=== PATIENT | female | born 1945 | race Caucasian/White ===

== ENCOUNTER 2016-11-12 10:04 | Inpatient (IN) ==
[2016-11-12] MEDS ORDERED: Acetaminophen 325 MG TABLET PO ONE (10:57)
[2016-11-12] MEDS ORDERED: 0.9 % Sodium Chloride 1,000 ML IVC ONE ×2 (11:00→13:41)
--- NOTE | 2016-11-12 11:04 | Emergency Department Note ---
Disposition Clinical Impression: Neutropenic fever Sepsis Qualifiers: Sepsis type: sepsis due to unspecified organism Qualified Code(s): A41.9 - Sepsis, unspecified organism UTI (urinary tract infection) Qualifiers: Urinary tract infection type: site unspecified Hematuria presence: without hematuria Qualified Code(s): N39.0 - Urinary tract infection, site not specified Disposition: Admitted As Inpatient Condition: Fair Time of Disposition: 13:49 Weakness HPI - General Chief complaint: ED Weakness Stated complaint: fever/weakness Time Seen by Provider: 11/12/16 10:33 Source: patient, family Limitations: no limitations Nursing Notes Reviewed: Yes Vital Signs Reviewed: Yes - History of Present Illness HPI Narrative: Patient is a 71-year-old female who presents to [facility] ED with a chief complaint of generalized weakness and fever. Past medical history significant for CLL and right breast cancer. Patient currently undergoing chemotherapy and supposed to be starting IVIG today. She was sent over by the cancer center with concern for her fever. Patient was diagnosed with an possible bronchitis last week and given a prescription for azithromycin. She was then diagnosed with urinary tract infection 3 days ago and was started on ciprofloxacin. Patient denies any nausea, vomiting, chest pain, difficulty breathing. She has had a persistent cough. Denies any abdominal pain or feelings of dysuria. She has had some black tarry stools though she has been taking some Pepto-Bismol. Patient has been having some diarrhea since one week ago. Pt Subjective Complaint: generalized weakness/fatigue Onset (ago): day(s) Duration: constant, gradually worsening Location: generalized Migration: none Pain Severity: none Pain Scale: 0 Improves with: none Worsens with: none Context: recent illness Associated symptoms: Reports: fever/chills. Denies: chest pain, dysuria, headaches, nausea/vomiting, shortness of breath - Related Data Home Medications Medication Instructions Recorded Confirmed ClonazePAM [Klonopin] 1 mg PO DAILY 06/13/15 11/12/16 Ibuprofen [Motrin] 200 mg PO Q4HR PRN 06/13/15 11/12/16 Lisinopril/Hydrochlorothiazide 1 tab PO DAILY 06/13/15 11/12/16 [Zestoretic 10-12.5 mg Tablet] Oxymetolazine HCl [Afrin] 2 spray NS HS 06/13/15 11/12/16 Pravastatin Sodium [Pravachol] 80 mg PO DAILY 06/13/15 11/12/16 Levothyroxine [Synthroid] 100 mcg PO 0630 02/06/16 11/12/16 Denosumab [Prolia (For Outpatient 60 mg SQ [id number] 03/04/16 11/12/16 Infusion)] Magnesium Oxide [Magnesium] 400 mg PO DAILY PRN 05/19/16 11/12/16 Previous Rx's Medication Instructions Recorded Gabapentin [Neurontin] 100 mg PO BID #60 capsule 05/19/16 LORazepam [Ativan] 1 mg PO Q6H PRN #90 tablet 09/02/16 Lidocaine/Prilocaine CREAM [Emla] 5 gm TP PRN PRN #1 tube 09/02/16 Magic Mouthwash [Magic Mouthwash 10 ml PO QID PRN #240 ml 09/02/16 BLM] Ondansetron [Zofran] 8 mg PO Q8HR PRN #90 tablet 09/02/16 Prochlorperazine Maleate 10 mg PO Q6HR PRN #90 tablet 09/02/16 [Compazine] Omeprazole [PriLOSEC] 20 mg PO DAILY #90 cap 09/03/16 Oxycodone HCl/Acetaminophen 1 each PO Q6H PRN #30 tablet 09/10/16 [Percocet 5-325 mg Tablet] Amitriptyline [Elavil] 50 mg PO HS #30 tablet 09/14/16 Calamine/Zinc Oxide [Calamine 240 ml TP PRN PRN #1 lotion 10/23/16 Lotion] MethylPREDNISolone 4 mg PO AD #21 tab 10/23/16 [MethylPREDNISolone Dose Pack] Ciprofloxacin HCl [Cipro] 250 mg PO BID #14 tablet 11/10/16 Allergies Allergy/AdvReac Type Severity Reaction Status Date / Time No Known Allergies Allergy Verified 11/12/16 13:35 All systems ED: reviewed and negative except as stated. Past Medical History - Past Medical History Attestation: Yes The following information was validated with the patient. Source: patient Medical history: Reports: cancer, hyperlipidemia, hypertension, RA, thyroid disease Surgical history: Reports: cancer surgery Psychiatric history: Reports: no psych history - Social History Smoking Status: Never smoker Smokeless Tobacco Status: No Alcohol use: Reports: rarely Drug use: Reports: none Physical Exam - General Limitations: no limitations General appearance: alert, in no apparent distress - Head Head exam: atraumatic, normocephalic, normal inspection - Eye Eye exam: Present: normal appearance, PERRL, EOMI - ENT ENT exam: normal exam, normal oropharynx, mucous membranes moist - Neck Neck exam: Present: normal inspection, full ROM, trachea midline - Chest Chest inspection: Present: normal inspection, symmetric chest wall rise - Respiratory Respiratory exam: Present: normal lung sounds bilaterally - Cardiovascular Cardiovascular exam: Present: normal rhythm, tachycardia, normal heart sounds - Abdominal Exam Abdominal exam: Present: soft, Non-Tender. Absent: tenderness, distention, guarding, rebound, rigidity - Extremities Exam Extremities exam: Present: normal inspection, full ROM. Absent: tenderness, pedal edema - Back Exam Back exam: Present: normal inspection, full ROM. Absent: tenderness - Neurological Exam Neurological exam: Present: alert, oriented X3 - Psychiatric Psychiatric exam: Present: normal affect, normal mood - Skin Skin exam: Present: warm, dry, intact, normal color Course Course Narrative: Patient seen and examined. Generalized weakness and fever. We will do cardiopulmonary workup. We will get a urine analysis. Get some blood cultures. Her urine culture from 2 days ago did grow out Klebsiella pneumoniae. It does appear to be sensitive to the antibiotic she was placed on , ciprofloxacin. We will check for any other source of infection. We will fluid hydrate. - Reevaluation(s) Reevaluation #1: Lab work shows hypokalemia of 2.7. 40 mEq of potassium chloride ordered. We will also give her some magnesium sulfate. Also showing hyponatremia with a sodium of 122. Urinalysis still pending. With her fever, immunosuppression, we will go ahead and treat her with broad-spectrum antibiotics. She could have persisting urinary tract infection/failed outpatient therapy, or possible infection of her port. We will admit for sepsis, hyponatremia, hypokalemia, UTI. I spoke with hospitalist Dr. Blair who has accepted patient for admission. Time: 13:43 Vital Signs Temperature 103 F H 11/12/16 10:09 Pulse Rate 120 11/12/16 10:09 Respiratory Rate 18 11/12/16 10:09 Blood Pressure 142/79 11/12/16 10:09 O2 Sat by Pulse Oximetry 100 11/12/16 10:09 Temperature 99.3 F 11/12/16 13:01 Pulse Rate 97 11/12/16 12:36 Respiratory Rate 18 11/12/16 12:36 Blood Pressure 119/67 11/12/16 12:36 O2 Sat by Pulse Oximetry 100 11/12/16 12:36 Oxygen Delivery Oxygen Delivery Room Air Weakness - Medical Records Medical records reviewed: Yes I reviewed the patient's medical records. - Lab Data Lab results reviewed: Yes I reviewed the patient's lab results. Result diagrams: 11/12/16 11:13 11/12/16 11:13 Lab Results 11/12/16 11/12/16 11/12/16 Range/Units 11:13 11:13 11:13 WBC 3.3 L (4.3-11.1) K/mcL RBC 3.76 L (3.82-4.97) M/mcL Hgb 10.8 L (11.5-15.4) g/dL Hct 31.2 L (35.3-44.9) % MCV 83.0 (83.0-100.0) fL MCH 28.7 (28.0-33.3) pg MCHC 34.6 (31.6-35.5) g/dL RDW 14.0 (11.5-14.5) % Plt Count 78 L (140-400) K/mcL MPV 11.1 (9.4-12.4) fL Immature Gran % 0.6 (0-4) % Seg Neutrophils % 87.4 % Lymphocytes % 3.0 % Monocytes % 9.0 % Eosinophils % 0.0 % Basophils % 0.0 % Neutrophils # 2.9 (1.6-8.9) K/mcL Lymphocytes # 0.1 L (0.6-4.6) K/mcL Monocytes # 0.3 (0.0-1.3) K/mcL Eosinophils # 0.0 (0.0-0.6) K/mcL Basophils # 0.0 (0.0-0.2) K/mcL Reactive Lymphocytes Present A (Not Present) Platelet Estimate Decreased L (Normal) Immature Plt Fraction 9.2 H (1.1-6.1) % Sodium 122 L (136-145) mEq/L Potassium 2.7 L (3.5-4.5) mEq/L Chloride 87 L (98-109) mEq/L Carbon Dioxide 27 (19-29) mEq/L BUN 8 (7-20) mg/dL Creatinine 0.67 (0.57-1.11) mg/dL Est GFR ( Amer) > 60 (> 60) Est GFR (Non-Af Amer) > 60 (> 60) BUN/Creatinine Ratio 12 (6-26) Glucose 112 H (70-99) mg/dL Calculated Osmolality 253 L (280-300) Lactic Acid (0.5-2.2) mmol/L Calcium 7.7 L (8.6-10.8) mg/dL Total Bilirubin 0.7 (0.2-1.2) mg/dL AST 27 (5-34) Units/L ALT 17 (0-55) Units/L Alkaline Phosphatase 52 (38-126) Units/L Troponin I 0.01 (0-0.03) ng/mL Serum Total Protein 5.4 L (6.0-8.3) g/dL Albumin 2.6 L (3.5-5.0) g/dL Globulin 2.8 (2.4-3.5) g/dL Albumin/Globulin Ratio 0.9 L (1.1-2.2) TSH 0.445 (0.350-4.840) mcIU/mL // Range/Units 11:13 WBC (4.3-11.1) K/mcL RBC (3.82-4.97) M/mcL Hgb (11.5-15.4) g/dL Hct (35.3-44.9) % MCV (83.0-100.0) fL MCH (28.0-33.3) pg MCHC (31.6-35.5) g/dL RDW (11.5-14.5) % Plt Count (140-400) K/mcL MPV (9.4-12.4) fL Immature Gran % (0-4) % Seg Neutrophils % % Lymphocytes % % Monocytes % % Eosinophils % % Basophils % % Neutrophils # (1.6-8.9) K/mcL Lymphocytes # (0.6-4.6) K/mcL Monocytes # (0.0-1.3) K/mcL Eosinophils # (0.0-0.6) K/mcL Basophils # (0.0-0.2) K/mcL Reactive Lymphocytes (Not Present) Platelet Estimate (Normal) Immature Plt Fraction (1.1-6.1) % Sodium (136-145) mEq/L Potassium (3.5-4.5) mEq/L Chloride (98-109) mEq/L Carbon Dioxide (19-29) mEq/L BUN (7-20) mg/dL Creatinine (0.57-1.11) mg/dL Est GFR ( Amer) (> 60) Est GFR (Non-Af Amer) (> 60) BUN/Creatinine Ratio (6-26) Glucose (70-99) mg/dL Calculated Osmolality (280-300) Lactic Acid 1.5 (0.5-2.2) mmol/L Calcium (8.6-10.8) mg/dL Total Bilirubin (0.2-1.2) mg/dL AST (5-34) Units/L ALT (0-55) Units/L Alkaline Phosphatase (38-126) Units/L Troponin I (0-0.03) ng/mL Serum Total Protein (6.0-8.3) g/dL Albumin (3.5-5.0) g/dL Globulin (2.4-3.5) g/dL Albumin/Globulin Ratio (1.1-2.2) TSH (0.350-4.840) mcIU/mL - Radiology Data Radiology results reviewed: Yes I reviewed the patient's radiology results. Chest X-Ray 11/12/16 10:57 IMPRESSION: 1. Right chest wall MediPort in stable position. 2. Left base atelectasis with trace effusion versus pleural thickening. D/ / 11/12/2016 11:13:57 Vicki Nicole MD / Kacey Carpenter Interpreting Provider: Vicki Nicole MD - EKG Data EKG attestation: Yes I reviewed and interpreted this EKG. EKG results narrative: EKG done at 1014 shows sinus tachycardia with a rate of [address] elevation or depression. Left axis deviation. Attestation Statement - Attestation Attestation: I examined this patient and my medical decision-making was reviewed with the Resident Physician. I agree with the documented findings, disposition and treatment plan as described.
[2016-11-12 11:23] LABS: Hematocrit 31.2 % (35.3-44.9); Hemoglobin 10.8 g/dL (11.5-15.4); Immature Granulocytes % 0.6 % (0-4); Immature Platelets 9.2 % (1.1-6.1); Lymphocytes # 0.1 K/mcL (0.6-4.6); Mean Corpuscular HGB Conc 34.6 g/dL (31.6-35.5); Mean Corpuscular Hemoglobin 28.7 pg (28.0-33.3); Mean Platelet Volume 11.1 fL (9.4-12.4); Monocytes # 0.3 K/mcL (0.0-1.3); Neutrophils # 2.9 K/mcL (1.6-8.9); Red Blood Count 3.76 M/mcL (3.82-4.97); Segmented Neutrophils % 87.4 %
[2016-11-12 11:25] LABS: Platelet Count 78 K/mcL (140-400)
[2016-11-12 11:38] LABS: Alanine Aminotransferase 17 Units/L (0-55); Albumin 2.6 g/dL (3.5-5.0); Albumin/Globulin Ratio 0.9 (1.1-2.2); Alkaline Phosphatase 52 Units/L (38-126); Aspartate Amino Transferase 27 Units/L (5-34); BUN/Creatinine Ratio 12 (6-26); Bilirubin,Total 0.7 mg/dL (0.2-1.2); Blood Urea Nitrogen 8 mg/dL (7-20); Calcium 7.7 mg/dL (8.6-10.8); Carbon Dioxide 27 mEq/L (19-29); Chloride 87 mEq/L (98-109); Globulin 2.8 g/dL (2.4-3.5); Glucose 112 mg/dL (70-99); Osmolality,Calculated 253 (280-300); Potassium 2.7 mEq/L (3.5-4.5); Sodium 122 mEq/L (136-145); Total Protein 5.4 g/dL (6.0-8.3); eGFR For African Americans > 60 (> 60); eGFR For Non-African Americans > 60 (> 60)
[2016-11-12 11:47] LABS: Platelet Estimate Decreased (Normal); Reactive Lymphocytes Present (Not Present)
[2016-11-12 12:00] LABS: Thyroid Stimulating Hormone 0.445 mcIU/mL (0.350-4.840)
[2016-11-12] MEDS ORDERED: Piperacillin/Tazobactam 3.375 GM in D5% in Water (Mini-Bag+) 100 ML IVPB ONE (12:50)
[2016-11-12] MEDS ORDERED: Vancomycin 1,250 MG in D5% in Water 250 ML IVPB SCH ×2 (13:00→15:00)
[2016-11-12] MEDS ORDERED: Magnesium Sulfate 1 GM in D5% in Water 100 ML IVPB ONE (13:40)
[2016-11-12 13:58] LABS: Bilirubin,Urine Negative (Negative); Blood,Urine Negative (Negative); Clarity,Urine Cloudy (Clear); Color,Urine Yellow (Yellow); Glucose,Urine (UA) Normal (Normal); Ketones,Urine Negative (Negative); Leukocyte Esterase,Urine Trace (Negative); Nitrite,Urine Negative (Negative); Protein,Urine Trace mg/dL (Neg-Trace); Specific Gravity,Urine 1.011 (1.010-1.025); Urobilinogen,Urine Normal (Normal)
[2016-11-12 14:00] LABS: Bacteria,Urine None Seen per hpf (None-Few); Hyaline Casts,Urine None Seen per lpf (None-Few); RBC,Urine 0-3 per hpf (0-3); Squamous Epithelial Cell,Urine Many per lpf (None-Few); WBC,Urine 0-3 per hpf (0-3)
--- NOTE | 2016-11-12 14:12 | Internal Med History&Physical ---
Date of Encounter: 11/12/16 Time of Encounter: 13:20 Assessment and Plan (1) Sepsis Current visit: Yes Status: Acute Patient presented with sepsis from uncertain etiology. Patient is immunosuppressed due to chemotherapy and CLL. Will admit inpatient. Treat with broad-spectrum antibiotics. Follow blood culture results. High risk for complications. Cruz in hospital for 2 nights Qualifiers: Sepsis type: sepsis due to unspecified organism Qualified Code(s): A41.9 - Sepsis, unspecified organism (2) CLL (chronic lymphocytic leukemia) Current visit: No Status: Chronic Follow-up outpatient with oncology. Patient has pancytopenia related to this. (3) UTI (urinary tract infection) Current visit: Yes Status: Acute Patient with acute cystitis due to pansensitive Klebsiella pneumoniae per recent urine culture. Will treat with antibiotics. 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 Hemoglobin is 10.8. Will monitor closely. Will hold off on medical anticoagulation due to low platelet counts for now. Internal Medicine - H&P: HPI Chief complaint: Fever and generalized weakness Admitted From: Emergency Dept Plans for Post Hospital Care: Home History of present illness: Ms. Fish is a 71 year old female with a history of CLL for which she is undergoing chemotherapy and previous breast cancer was sent to the ER by her oncologist but concerns due to high-grade fever. Patient has also been treated with a week and tired since the past couple of days. She was diagnosed with an acute urinary tract infection about 3 days back and was prescribed antibiotics for that. Prior to that she had just completed a course of treatment with antibiotics for possible bronchitis. Her last chemotherapy regimen was in mid September. She was due for another session earlier this month but that had been postponed due to fever. She denies any cough shortness of breath or chest pain. Denies any nausea she had an episode of diarrhea a few days back but currently does not have any. She has been having poor appetite. She was set to receive IVIG in the clinic today was supposed to be starting chemotherapy tomorrow. She denies any dysuria, cough, abdominal pain. Past Med Surg Social Fam HX - Past Medical History Medical history: cancer, hyperlipidemia, hypertension, RA, thyroid disease Psychiatric history: no psych history - Past Surgical History Surgical History: cancer surgery - Social History Smoking Status: Never smoker Smokeless Tobacco Status: No Alcohol use: rarely Drug use: none Internal Medicine - H&P: Meds ClonazePAM [Klonopin] 1 mg PO DAILY 06/13/15 [History] Ibuprofen [Motrin] 200 mg PO Q4HR PRN 06/13/15 [History] Lisinopril/Hydrochlorothiazide [Zestoretic 10-12.5 mg Tablet] 1 tab PO DAILY [History] Oxymetolazine HCl [Afrin] 2 spray NS HS 06/13/15 [History] Pravastatin Sodium [Pravachol] 80 mg PO DAILY 06/13/15 [History] Levothyroxine [Synthroid] 100 mcg PO 0630 02/06/16 [History] Denosumab [Prolia (For Outpatient Infusion)] 60 mg SQ [id number] 03/04/16 [History ] Gabapentin [Neurontin] 100 mg PO BID #60 capsule 05/19/16 [Rx] Magnesium Oxide [Magnesium] 400 mg PO DAILY PRN 05/19/16 [History] LORazepam [Ativan] 1 mg PO Q6H PRN #90 tablet 09/02/16 [Rx] Lidocaine/Prilocaine CREAM [Emla] 5 gm TP PRN PRN #1 tube 09/02/16 [Rx] Magic Mouthwash [Magic Mouthwash BLM] 10 ml PO QID PRN #240 ml 09/02/16 [Rx] Ondansetron [Zofran] 8 mg PO Q8HR PRN #90 tablet 09/02/16 [Rx] Prochlorperazine Maleate [Compazine] 10 mg PO Q6HR PRN #90 tablet 09/02/16 [Rx] Omeprazole [PriLOSEC] 20 mg PO DAILY #90 cap 09/03/16 [Rx] Oxycodone HCl/Acetaminophen [Percocet 5-325 mg Tablet] 1 each PO Q6H PRN #30 tablet 09/10/16 [Rx] Amitriptyline [Elavil] 50 mg PO HS #30 tablet 09/14/16 [Rx] Calamine/Zinc Oxide [Calamine Lotion] 240 ml TP PRN PRN #1 lotion 10/23/16 [Rx] MethylPREDNISolone [MethylPREDNISolone Dose Pack] 4 mg PO AD #21 tab 10/23/16 [ Rx] Ciprofloxacin HCl [Cipro] 250 mg PO BID #14 tablet 11/10/16 [Rx] Allergies No Known Allergies Allergy (Verified 11/12/16 13:35) All Systems PM: A 10-system review of systems was performed and is negative for pertinent findings except as documented above in the HPI. - Constitutional Constitutional: fever(s), malaise, weakness, no chills, no night sweats - EENT Eyes: no change in vision, no discharge, no pain, no photophobia Ears: no ear discharge, no ear pain, no tinnitus Nose, mouth and throat: no dysphagia, no nasal discharge, no neck pain, no sore throat - Cardiovascular Cardiovascular ROS IM: no chest pain, no diaphoresis, no dyspnea, no lightheadedness, no palpitations, no syncope - Respiratory Respiratory: no cough, no dyspnea, no wheezing, no excessive phlegm production - Gastrointestinal Gastrointestinal: no abdominal pain, no diarrhea, no hematemesis, no hematochezia, no melena, no nausea, no vomiting - Genitourinary Genitourinary: no change in urinary stream, no dysuria, no flank pain, no hematuria - Musculoskeletal Musculoskeletal ROS IM: no numbness, no tingling - Integumentary Integumentary IM: no rash, no unusual bruising - Neurological Neurological ROS: no confusion, no convulsions, no focal weakness, no numbness, no tingling, no tremor(s) - Hematologic/Lymphatic Hematologic/Lymphatic: lymphadenopathy, no easy bruising - Constitutional Vitals: Temp Pulse Resp BP Pulse Ox 99.3 F 97 18 106/70 100 11/12/16 13:01 11/12/16 12:36 11/12/16 14:04 11/12/16 14:04 11/12/16 12:36 General appearance: Present: cooperative, mild distress, A&O X 3, answers questions appropriately - Head Head exam: Present: atraumatic, normocephalic - Eye Eye exam: Present: EOMI, PERRL, conjuntiva pink, sclera anicteric - ENT ENT exam: Present: mucous membranes dry - Neck Neck exam general surgery: Present: full ROM, supple, trachea midline - Respiratory Respiratory exam: Present: CTAB. Absent: accessory muscle use, rales, rhonchi, wheezes - Cardiovascular Cardiovascular exam: Present: RRR, +S1, +S2. Absent: diastolic murmur, gallop, rubs, systolic murmur - GI/Abdominal GI/Abdominal exam: Present: normal bowel sounds, soft, no peritoneal signs. Absent: distended, tenderness - Extremities Exam Extremities exam: Present: warm, radial pulses palpable and symetrical. Absent : calf tenderness, cyanotic, pedal edema - Neurological Exam Neurological exam: Present: CN II-XII intact, oriented X3, no focal deficits. Absent: pronater drift, facial droop, speech deficit - Skin Skin exam: Present: dry, intact Internal Med - H&P Results - Labs CBC & Chem 7: 11/12/16 11:13 11/12/16 11:13 Labs: Short CBC 11/12/16 Range/Units 11:13 WBC 3.3 L (4.3-11.1) K/mcL Hgb 10.8 L (11.5-15.4) g/dL Hct 31.2 L (35.3-44.9) % Plt Count 78 L (140-400) K/mcL Neutrophils # 2.9 (1.6-8.9) K/mcL BMP 11/12/16 11:13 Sodium 122 L Potassium 2.7 L Chloride 87 L Carbon Dioxide 27 BUN 8 Creatinine 0.67 Glucose 112 H Calcium 7.7 L Cardiac Enzymes 11/12/16 Range/Units 11:13 Troponin I 0.01 (0-0.03) ng/mL Liver Function 11/12/16 Range/Units 11:13 Total Bilirubin 0.7 (0.2-1.2) mg/dL AST 27 (5-34) Units/L ALT 17 (0-55) Units/L Alkaline Phosphatase 52 (38-126) Units/L Albumin 2.6 L (3.5-5.0) g/dL Urine 11/12/16 Range/Units 13:48 Urine Color Yellow (Yellow) Urine Clarity Cloudy A (Clear) Urine pH 7.0 (5.0-8.0) pH Units Ur Specific [place] 1.011 (1.010-1.025) Urine Protein Trace (Neg-Trace) mg/dL Urine Glucose (UA) Normal (Normal) mg/dL - Impressions ITS Impressions Chest X-Ray 11/12/16 10:57 IMPRESSION: 1. Right chest wall MediPort in stable position. 2. Left base atelectasis with trace effusion versus pleural thickening. D/ / 11/12/2016 11:13:57 Vicki Nicole MD / Kacey Carpenter Interpreting Provider: Vicki Nicole MD - Attending Attestation This document has been at least partially created by [employer] recognition technology by Dr. Blair. Errors in grammar, wording or other phrases may exist. If errors are found after the documentation is signed, they will be addressed individually in the addendum section of this document when appropriate.
[2016-11-12] MEDS ORDERED: Naloxone 0.4 MG/ML INJ IVP PRN (14:22)
[2016-11-12] MEDS ORDERED: Vancomycin 1,500 MG in D5% in Water 250 ML IVPB ONE (14:25)
[2016-11-12] MEDS ORDERED: Magnesium Oxide 400 MG TABLET PO PRN (14:27)
[2016-11-12] MEDS ORDERED: *HR* LORazepam 1 MG TABLET PO PRN (14:27)
[2016-11-12] MEDS ORDERED: *HR* OxyCODONE/APAP 5/325 TABLET PO PRN (14:27)
[2016-11-12] MEDS ORDERED: Ondansetron 4 MG/2 ML VIAL IVP PRN (14:31)
[2016-11-12] MEDS ORDERED: Melatonin 3 MG TABLET PO PRN (16:45)
[2016-11-12] MEDS ORDERED: Oxymetazoline Nasal SPRAY BOTTLE NS PRN (16:46)
[2016-11-12] MEDS: Acetaminophen 325 MG TABLET PO PRN (17:35)
[2016-11-12] MEDS: 0.9 % Sodium Chloride w KCl 40 MEQ/1,000 ML MLS IVC SCH (17:36)
[2016-11-12] MEDS ORDERED: 0.9 % Sodium Chloride 1,000 ML ONE (18:34)
--- NOTE | 2016-11-12 18:41 | Event Note ---
Date of Encounter: 11/12/16 Time of Encounter: 18:39 Patient developed tachycardia and intermittent SVT with heart rate going up to 140 but was improving to 110s spontaneously. Will check potassium on admission and sodium levels. IV normal saline bolus. Continue monitoring with telemetry.
[2016-11-12] MEDS: Ibuprofen 600 MG TABLET PO PRN (18:42)
[2016-11-12 20:18] LABS: Magnesium 1.6 mg/dL (1.6-2.6)
[2016-11-12] MEDS: Gabapentin 100 MG CAPSULE PO SCH (21:49)
[2016-11-12] MEDS: clonazePAM 1 MG TABLET PO SCH (21:49)
[2016-11-12] MEDS: Piperacillin/Tazobactam 3.375 GM in D5% in Water (Mini-Bag+) 100 ML IVPB SCH (21:54)
[2016-11-13] MEDS: 0.9 % Sodium Chloride w KCl 40 MEQ/1,000 ML MLS IVC SCH (02:49)
[2016-11-13] MEDS: Vancomycin 1,250 MG in D5% in Water 250 ML IVPB SCH ×2 (02:49→14:17)
[2016-11-13 03:21] LABS: Eosinophils % 1.3 %; Lymphocytes % 4.3 %
[2016-11-13 03:23] LABS: Hematocrit 27.9 % (35.3-44.9); Hemoglobin 9.6 g/dL (11.5-15.4); Immature Granulocytes % 0.9 % (0-4); Lymphocytes # 0.1 K/mcL (0.6-4.6); Mean Corpuscular HGB Conc 34.4 g/dL (31.6-35.5); Mean Corpuscular Hemoglobin 28.9 pg (28.0-33.3); Monocytes # 0.2 K/mcL (0.0-1.3); Monocytes % 10.2 %; Red Blood Count 3.32 M/mcL (3.82-4.97); Red Cell Distribution Width 14.1 % (11.5-14.5); Segmented Neutrophils % 83.3 %
[2016-11-13 03:32] LABS: Platelet Count 70 K/mcL (140-400)
[2016-11-13 03:34] LABS: BUN/Creatinine Ratio 10 (6-26); Blood Urea Nitrogen 6 mg/dL (7-20); Calcium 6.9 mg/dL (8.6-10.8); Carbon Dioxide 23 mEq/L (19-29); Glucose 93 mg/dL (70-99); Osmolality,Calculated 271 (280-300); Potassium 3.2 mEq/L (3.5-4.5); eGFR For African Americans > 60 (> 60); eGFR For Non-African Americans > 60 (> 60)
[2016-11-13 03:35] LABS: Chloride 103 mEq/L (98-109); Sodium 132 mEq/L (136-145)
[2016-11-13 04:29] LABS: Platelet Estimate Decreased (Normal)
[2016-11-13] MEDS: Piperacillin/Tazobactam 3.375 GM in D5% in Water (Mini-Bag+) 100 ML IVPB SCH ×3 (05:59→21:59)
[2016-11-13] MEDS: Acetaminophen 325 MG TABLET PO PRN (06:58)
[2016-11-13] MEDS: Gabapentin 100 MG CAPSULE PO SCH (09:45)
--- NOTE | 2016-11-13 10:01 | Internal Med Progress Note ---
<Kayleigh Gao - Last Filed: 11/13/16 14:39> Date of Encounter: 11/13/16 Time of Encounter: 09:30 - Assessment and plan (1) Sepsis Current Visit: Yes Status: Acute Assessment and plan: - 3 SIRS criteria (fever, tachycardia & leukopenia) with possible source infections likely UTI and/or pulmonary. - Patient is immunosuppressed given CLL and recent chemo. - Continue vancomycin and Zosyn for broad coverage. - Blood cultures pending. - Will obtain sputum culture for possible respiratory infection. - Closely monitor. Qualifiers: Sepsis type: sepsis due to unspecified organism Qualified Code(s): A41.9 - Sepsis, unspecified organism (2) Hyponatremia Current Visit: Yes Status: Acute Assessment and plan: - Acute hyponatremia with Na as low as 122 on 11/12 - Improved as Na at 132 today. - Hold NS for now. - Continue to monitor. (3) Pancytopenia Current Visit: Yes Status: Chronic Assessment and plan: - Chronic due to CLL. - Will continue to monitor closely with CBC. (4) UTI (urinary tract infection) Current Visit: Yes Status: Acute Assessment and plan: - Urine culture from 11/09/16 grew grullon-sensitive Klebsiella pneumoniae - Continue current antibiotic regimen. Qualifiers: Urinary tract infection type: acute cystitis Hematuria presence: without hematuria Qualified Code(s): N30.00 - Acute cystitis without hematuria (5) DVT prophylaxis Current Visit: Yes Status: Acute Assessment and plan: - Calf pump as mechanical DVT prophylaxis. - Subjective Interval history: Patient is a 71 year old female with history of breast cancer who is currently being treated for CLL. Patient was admitted for generalized weakness and neutropenic fever which has been going on for some time. She states that she was at the cancer center yesterday to get IVIg when Dr. Garcia sent her to the ED due to her fever. Her last treatment was October 13, , and . Patient was diagnosed with bronchitis last week and treated with azithromycin. Patient also diagnosed with UTI 4 days ago and was started on cipro. Patient reports that her has been checking her temperature for quite some time and is frequently over 102 degrees F. She reports diarrhea that has been going on for the last 3-4 days but states no diarrhea at this time. She also admits to some shortness of breath but states that it is not new for her. Patient also reports that she has no appetite because her food doesn't taste right. She denies chest pain, cough, abdominal pain, dysuria, calf tenderness. - Constitutional Vitals: Temp Pulse Resp BP Pulse Ox 99.0 F 102 14 106/65 98 11/13/16 09:33 11/13/16 09:33 11/13/16 09:33 11/13/16 09:33 11/13/16 09:33 General appearance: Present: cooperative, mild distress, A&O X 3, answers questions appropriately - Head Head exam: Present: atraumatic, normocephalic - Neck Neck exam general surgery: Present: supple, trachea midline. Absent: lymphadenopathy - Respiratory Respiratory exam: Present: rhonchi (mild rhonchi bilaterally). Absent: stridor , wheezes - Cardiovascular Cardiovascular exam: Present: RRR, +S1, +S2, tachycardia. Absent: diastolic murmur, gallop, rubs, systolic murmur - GI/Abdominal GI/Abdominal exam: Present: normal bowel sounds, soft, no peritoneal signs. Absent: distended, tenderness - Neurological Exam Neurological exam: Present: alert, oriented X3 - Skin Skin exam: Present: dry, intact Internal Medicine: Result - Labs CBC & Chem 7: 11/13/16 03:05 11/13/16 03:05 Labs: Short CBC 11/13/16 Range/Units 03:05 WBC 2.4 L (4.3-11.1) K/mcL Hgb 9.6 L (11.5-15.4) g/dL Hct 27.9 L (35.3-44.9) % Plt Count 70 L (140-400) K/mcL Neutrophils # 2.0 (1.6-8.9) K/mcL BMP 11/12/16 11/13/16 18:05 03:05 Sodium 123 L 132 L D Potassium 3.0 L 3.2 L Chloride 103 D Carbon Dioxide 23 BUN 6 L Creatinine 0.58 Glucose 93 Calcium 6.9 L - VTE Documentation of Mechanical Device: Intermittent pneumatic compression device Consult Discharge Plan - Plan Referrals: NO,PCP [Non-Partnered Physician] - <Dieudonne Nava - Last Filed: 11/13/16 15:35> - Constitutional Vitals: Temp Pulse Resp BP Pulse Ox 99.1 F 98 15 113/69 95 11/13/16 11:01 11/13/16 11:01 11/13/16 11:01 11/13/16 11:01 11/13/16 11:01 Internal Medicine: Result - Labs CBC & Chem 7: 11/13/16 03:05 11/13/16 03:05 Labs: Short CBC 11/13/16 Range/Units 03:05 WBC 2.4 L (4.3-11.1) K/mcL Hgb 9.6 L (11.5-15.4) g/dL Hct 27.9 L (35.3-44.9) % Plt Count 70 L (140-400) K/mcL Neutrophils # 2.0 (1.6-8.9) K/mcL BMP 11/12/16 11/13/16 18:05 03:05 Sodium 123 L 132 L D Potassium 3.0 L 3.2 L Chloride 103 D Carbon Dioxide 23 BUN 6 L Creatinine 0.58 Glucose 93 Calcium 6.9 L - Attending Attestation I examined this patient and my medical decision-making was reviewed with the STORE CONSULTANT/PA/Advanced Practice Nurse/Resident Physician. I agree with the documented findings, disposition and treatment plan as described except to the extent set forth below. 71 Y/O F , seen independently at bedside She has a PMH of breast CA s/p therapy, CLL on chemotherapy, tubular adenoma per most recent colonoscopy esophagitis, chronic pancytopenia due to cancer She is admitted and being managed for Sepsis secondary to Suspected Pneumonia, UTI She is still febrile and tachycardic at time of review Her only complain this morning is bilateral lower extremity pain, shooting, sharp pain, chronic. She has no CP, Palpitations, diarrhea, dizziness. She does have productive cough, she is not hypoxic and is saturating 95-98% on room air Physical exam -VS: Tachycardic, febrile, BP acceptable, speaks full sentences, laying comfortably in bed in no form of distress, AAOX3, no neurologic deficits , chest exam with bibasilar crackles, heart S1, S2, regular, tachycardic, abdomen is benign, nno pedal edema Labs and Imaging reviewed: Leukopenia, chronic anemia, thrombocytopenia,PLT 70, hyponatremia 132 (123), hypokalemia 3.2, Normal lactate, UA with LE+. Urine culture from 11/09 with pansensitive Klebsiella A/P: *Sepsis, continue broad spectrum coverage, send sputum cultures, monitor closely , follow cultures, high risk patient with risk of decompensation to septic shock *Tachycardia: EKG X3 reviewed, on admission with sinus tachycardia, during the evening with SVT, EKG done this afternoon with sinus tachycardia, no ischemic changes. CXR with L atelectasis. GIve 500cc bolus of 0.45% saline, continue telemetry, consider transferring patient to SDU *UTI: Continue antibiotics as above *Hyponatremia; corrected, monitor closely. *Pancytopenia-Chronic *Breast CA/CLL: Chronic, for Onc ff up as O-P rest of details as in resident's documentation
[2016-11-13] MEDS: Ibuprofen 600 MG TABLET PO PRN (14:54)
[2016-11-13] MEDS ORDERED: Vancomycin (wt based) 1,000 MG VIAL IVPB SCH (15:00)
--- NOTE | 2016-11-13 15:09 | Electrocardiograph Report ---
[address] [place] [address] Test Date: 2016-11-13 Pat Name: Morenita Fish Department: 112 Room: 2A14 Gender: F Ar Manager: : 1945 Requested By: Kayleigh Gao Order Number: [id number] Reading MD: Dorothy Sethi Measurements Intervals [place] Rate: 123 P: MO: 0 QRS: -52 QRSD: 107 T: 37 QT: 279 QTc: 352 Interpretive Statements SINUS TACHYCARDIA WITH OCCASIONAL SUPRAVENTRICULAR PREMATURE COMPLEXES LOW QRS VOLTAGE IN PRECORDIAL LEADS LEFT ANTERIOR FASCICULAR BLOCK POSSIBLE ANTERIOR MYOCARDIAL INFARCTION, OF INDETERMINATE AGE Electronically Signed On 11-13-2016 15:07:30 EDT by Dorothy Sethi
[2016-11-13] MEDS ORDERED: *HR* Metoprolol 5 MG/5 ML VIAL IVP ONE ×5 (15:58→23:49)
--- NOTE | 2016-11-13 16:49 | Electrocardiograph Report ---
[place] [address] Test Date: 2016-11-12 Pat Name: Morenita Fish Department: 112 Room: 2A14 Gender: F Mushroom Packer: : 1945 Requested By: Berry Atkins Order Number: [id number] Reading MD: Dorothy Sethi Measurements Intervals [place] Rate: 118 P: 65 ID: [id number] QRS: -59 QRSD: 89 T: 53 QT: 307 QTc: 377 Interpretive Statements SINUS TACHYCARDIA WITH OCCASIONAL SUPRAVENTRICULAR PREMATURE COMPLEXES PATTERN CONSISTENT WITH PULMONARY DISEASE LEFT ANTERIOR FASCICULAR BLOCK Electronically Signed On 11-13-2016 16:47:31 EDT by Dorothy Sethi
--- NOTE | 2016-11-13 17:02 | Electrocardiograph Report ---
[place] [address] Test Date: 2016-11-12 Pat Name: Morenita Fish Department: 102 Room: 2A14 Gender: F Polysom Tech: : 1945 Requested By: Berry Atkins Order Number: [id number] Reading MD: Dorothy Sethi Measurements Intervals [place] Rate: 100 P: 31 MD: 160 QRS: -54 QRSD: 89 T: 16 QT: 345 QTc: 402 Interpretive Statements SINUS TACHYCARDIA LOW QRS VOLTAGE IN PRECORDIAL LEADS [QRS DEFLECTION < 1.0 mV IN CHEST LEADS] LEFT ANTERIOR FASCICULAR BLOCK [QRS AXIS <= -45, QR IN I, RS IN II] POSSIBLE ANTERIOR MYOCARDIAL INFARCTION [30 ms Q WAVE IN V3/V4, OR R < 0.2 mV IN V4], OF INDETERMINATE AGE Electronically Signed On 11-13-2016 17:00:55 EDT by Dorothy Sethi
--- NOTE | 2016-11-13 17:32 | Event Note ---
<Kayleigh Gao - Last Filed: 11/13/16 17:16> Date of Encounter: 11/13/16 Time of Encounter: 16:00 I was called to 2A by nurse for patient's tachycardia. Patient is noted to have tachycardia at 160-180 with fever of 101.4. Dr[address] Nava and I saw and examined the patient in the room. Patient reports feeling hot and fast heart beating but denies chest pain or shortness of breath. Patient reports no known diagnosis of A-fib, arrhythmia, heart failure, heart attack or other heart problems except mitral valve prolapse. CV exam is positive for tachycardia but sounds regular on auscultation. Ice bags were given to lower her fever. Carotid massage and valsalva maneuver were attempted multiple times but patient's tachycardia persists. Two doses of Adenosine push (6 mg and later 12 mg) had no success. EKG obtained at bedside showed SVT. Patient was eventually started on diltiazem drip 5 mg/hr and later 10 mg/hr. Patient is able to maintain MAP > 80 while getting IV 1/2NS bolus. STAT BMP and Mg were ordered. Cardiology was consulted. Plan to obtain echocardiogram for further evaluation tomorrow. Patient will be transferred to for more intense monitoring and management. <Dieudonne Nava - Last Filed: 11/13/16 17:38> 45 minutes of critical care given to this patient. I was at the bedside throughout, patient with Stable SVTs HR 140-160, rapidy returns to sinus rhythm with adenosine pushes but quickly converts back to SVTs. Underlying rhythm is sinus She is high risk due to SVTs, Sepsis She needs be transferred to SDU cardiology has been consulted Continue tepid sponging, follow repeat electrolytes, obtain ECHO when HR is slower Continue other current management Rest of details as in resident's documentation
[2016-11-13 18:39] LABS: BUN/Creatinine Ratio 10 (6-26); Blood Urea Nitrogen 6 mg/dL (7-20); Calcium 6.6 mg/dL (8.6-10.8); Carbon Dioxide 19 mEq/L (19-29); Chloride 100 mEq/L (98-109); Glucose 117 mg/dL (70-99); Magnesium 1.3 mg/dL (1.6-2.6); Osmolality,Calculated 263 (280-300); Sodium 127 mEq/L (136-145); eGFR For African Americans > 60 (> 60); eGFR For Non-African Americans > 60 (> 60)
[2016-11-13] MEDS ORDERED: Magnesium Sulfate 2 GM in D5% in Water 100 ML IVPB ONE (18:51)
[2016-11-13] MEDS: clonazePAM 1 MG TABLET PO SCH (20:13)
[2016-11-13] MEDS ORDERED: 0.9 % Sodium Chloride 1,000 ML IVC ONE ×2 (21:57→23:24)
[2016-11-13] MEDS ORDERED: 0.9 % Sodium Chloride 1,000 ML ONE (23:31)
[2016-11-13 23:47] LABS: ABG Base Excess -2.6 mEq/L (-2.0 to 3.0); ABG HCO3 21.2 mEQ/L (21-27); ABG Oxygen Saturation 96 % (95-98); ABG PCO2 32 mmHg (35-45); ABG PH 7.43 pH Units (7.32-7.45); ABG PO2 80 mmHg (85-104); ABG TCO2 22.2 mEq/L (20-26)
[2016-11-13 23:48] LABS: Blood Gas FiO2 32 %
--- NOTE | 2016-11-14 00:13 | Event Note ---
Date of Encounter: 11/14/16 Time of Encounter: 00:10 Called to see patient for dropping BP, sustained tachycardia, and depressed mental status. I ordered to stop Cardizem, IVF bolus, IV Lopressor, glucose check, ABG, and CXR. Glucose was 100, ABG stable, and HR/BP improved with above maneuvers. I ordered Influenza testing. I updated family. If patient declines, will move to ICU if necessary.
[2016-11-14 00:27] LABS: Basophils % 0.3 %
[2016-11-14 00:29] LABS: Hematocrit 27.7 % (35.3-44.9); Hemoglobin 9.5 g/dL (11.5-15.4); Immature Granulocytes % 0.7 % (0-4); Immature Platelets 5.9 % (1.1-6.1); Lymphocytes # 0.1 K/mcL (0.6-4.6); Lymphocytes % 4.1 %; Mean Corpuscular HGB Conc 34.3 g/dL (31.6-35.5); Mean Corpuscular Hemoglobin 29.2 pg (28.0-33.3); Mean Corpuscular Volume 85.2 fL (83.0-100.0); Mean Platelet Volume 10.7 fL (9.4-12.4); Monocytes # 0.3 K/mcL (0.0-1.3); Monocytes % 10.5 %; Neutrophils # 2.5 K/mcL (1.6-8.9); Red Blood Count 3.25 M/mcL (3.82-4.97); Red Cell Distribution Width 14.3 % (11.5-14.5); Segmented Neutrophils % 83.4 %
[2016-11-14 00:32] LABS: Platelet Count 93 K/mcL (140-400)
[2016-11-14 00:35] LABS: Magnesium 1.8 mg/dL (1.6-2.6); Potassium 3.6 mEq/L (3.5-4.5)
[2016-11-14 00:41] LABS: BUN/Creatinine Ratio 8 (6-26); Blood Urea Nitrogen 5 mg/dL (7-20); Calcium 6.3 mg/dL (8.6-10.8); Carbon Dioxide 20 mEq/L (19-29); Chloride 105 mEq/L (98-109); Glucose 110 mg/dL (70-99); Osmolality,Calculated 268 (280-300); Potassium 3.6 mEq/L (3.5-4.5); Sodium 130 mEq/L (136-145); eGFR For African Americans > 60 (> 60); eGFR For Non-African Americans > 60 (> 60)
[2016-11-14 00:48] LABS: Platelet Estimate Decreased (Normal)
[2016-11-14] MEDS ORDERED: Magnesium Sulfate 2 GM in D5% in Water 100 ML IVPB ONE (00:58)
[2016-11-14] MEDS ORDERED: 0.9 % Sodium Chloride w KCl 20 MEQ/1,000 ML MLS IVC SCH (01:00)
[2016-11-14] MEDS: *HR* Metoprolol 5 MG/5 ML VIAL IVP SCH ×2 (01:18→06:05)
[2016-11-14] MEDS ORDERED: Amiodarone Premix 360 MG/200 ML BAG IVC ONE (02:26)
[2016-11-14] MEDS ORDERED: Amiodarone Premix 360 MG/200 ML BAG IVC SCH (02:30)
[2016-11-14 02:46] LABS: 2009 H1N1 PCR NOT DETECTED (Not Detect); Influenza A PCR Negative (Negative); Influenza B PCR Negative (Negative)
[2016-11-14] MEDS: Vancomycin 1,250 MG in D5% in Water 250 ML IVPB SCH (02:46)
[2016-11-14] MEDS ORDERED: *HR* Metoprolol 5 MG/5 ML VIAL IVP ONE (04:06)
[2016-11-14] MEDS: Piperacillin/Tazobactam 3.375 GM in D5% in Water (Mini-Bag+) 100 ML IVPB SCH ×3 (04:26→20:39)
[2016-11-14 09:20] LABS: BUN/Creatinine Ratio 8 (6-26); Blood Urea Nitrogen 5 mg/dL (7-20); Calcium 6.4 mg/dL (8.6-10.8); Carbon Dioxide 19 mEq/L (19-29); Chloride 102 mEq/L (98-109); Glucose 119 mg/dL (70-99); Osmolality,Calculated 260 (280-300); Potassium 3.9 mEq/L (3.5-4.5); Sodium 126 mEq/L (136-145); eGFR For African Americans > 60 (> 60); eGFR For Non-African Americans > 60 (> 60)
--- NOTE | 2016-11-14 09:30 | Cardiology Consult Note ---
Date of Encounter: 11/14/16 Time of Encounter: 08:30 Assessment and Plan (1) Atrial fibrillation Current Visit: Yes Status: Acute Suspected new onset atrial fibrillation with RVR in the setting of sepsis and electrolyte abnormalities. Patient denies hx of atrial fibrillation or irregular heart rhythm. Cardizem stopped overnight due to hypotension; now on amiodarone gtt. Upon exam, patient is in SR HR 90's. SBP stable, 110's-120's. Will start low dose calcium channel cherie. CHA2Ds Vasc=3 (Age, female, HTN). Ideally, patient should be on anticoagulation ; however noted to have declining HgB 9.5 this AM (10.8 upon admission) and PLT are 93. Will further discuss with Dr. Casey Sethi. TSH normal. Echocardiogram pending. Qualifiers: Atrial fibrillation type: paroxysmal Qualified Code(s): I48.0 - Paroxysmal atrial fibrillation (2) CLL (chronic lymphocytic leukemia) Current Visit: No Status: Chronic Reports 5 year hx of CLL, currently undergoing chemotherapy. Has associated pancytopenia--PLT 93, HgB 9.5 (10.8) upon admission. (3) Sepsis Current Visit: Yes Status: Acute Immunosuppressed due to chemotherapy. T max 103.1 in the past 24 hours. Persistent electrolyte abnormalities--defer mgmt to Primary service. Qualifiers: Sepsis type: sepsis due to unspecified organism Qualified Code(s): A41.9 - Sepsis, unspecified organism Discussion w patient/family: The assessment and plan as outlined above was discussed with the patient and/or family members who expressed understanding and agreement. All questions were answered. Thank you for involving us in the care of your patient. Please call with any questions. History of Present Illness Consult date: 11/14/16 Requesting physician: Dieudonne Nava Consult reason: SVT Chief complaint: Weakness, fatigue History of present illness: Ms. Fish is a 71 year old female with PMH significant for breast CA, CLL (dx 5 years ago), HLD, hypothyroidism, and HTN who presented to the ED on 11/12/16 with increased weakness, fatigue, and fever. She was sent by physician at Oncology office due to elevated temp, 103. Had been treated for bronchitis and UTI (Klebsiella) in the past week. On 11/13/16, she was found to be tachycardiac with HR reportedly in the 160's-180's; she was given Adenosine by Hospitalist team (6mg and then 12mg), reportedly HR responded for a few seconds but quickly became tachycardiac. She was started on a Cardizem gtt and transferred to . Overnight, she became more lethargic with hypotension and Cardizem gtt was stopped. She was then started on Amiodarone gtt. Cardiology consulted re: SVT. Past Med Surg Social Fam HX - Past Medical History Attestation: Yes The following information was validated with the patient. Source: unable to obtain, old records reviewed Medical history: cancer, hyperlipidemia, hypertension, RA, thyroid disease Psychiatric history: no psych history - Past Surgical History Surgical History: cancer surgery - Social History Smoking Status: Never smoker Smokeless Tobacco Status: No Alcohol use: rarely Drug use: none Medications and Allergies ClonazePAM [Klonopin] 1 mg PO DAILY 06/13/15 [History] Ibuprofen [Motrin] 200 mg PO Q4HR PRN 06/13/15 [History] Lisinopril/Hydrochlorothiazide [Zestoretic 10-12.5 mg Tablet] 1 tab PO DAILY [History] Oxymetolazine HCl [Afrin] 2 spray NS HS 06/13/15 [History] Pravastatin Sodium [Pravachol] 80 mg PO DAILY 06/13/15 [History] Levothyroxine [Synthroid] 100 mcg PO 0630 02/06/16 [History] Denosumab [Prolia (For Outpatient Infusion)] 60 mg SQ [id number] 03/04/16 [History ] Gabapentin [Neurontin] 100 mg PO BID #60 capsule 05/19/16 [Rx] Magnesium Oxide [Magnesium] 400 mg PO DAILY PRN 05/19/16 [History] LORazepam [Ativan] 1 mg PO Q6H PRN #90 tablet 09/02/16 [Rx] Lidocaine/Prilocaine CREAM [Emla] 5 gm TP PRN PRN #1 tube 09/02/16 [Rx] Magic Mouthwash [Magic Mouthwash BLM] 10 ml PO QID PRN #240 ml 09/02/16 [Rx] Ondansetron [Zofran] 8 mg PO Q8HR PRN #90 tablet 09/02/16 [Rx] Prochlorperazine Maleate [Compazine] 10 mg PO Q6HR PRN #90 tablet 09/02/16 [Rx] Omeprazole [PriLOSEC] 20 mg PO DAILY #90 cap 09/03/16 [Rx] Oxycodone HCl/Acetaminophen [Percocet 5-325 mg Tablet] 1 each PO Q6H PRN #30 tablet 09/10/16 [Rx] Amitriptyline [Elavil] 50 mg PO HS #30 tablet 09/14/16 [Rx] Calamine/Zinc Oxide [Calamine Lotion] 240 ml TP PRN PRN #1 lotion 10/23/16 [Rx] MethylPREDNISolone [MethylPREDNISolone Dose Pack] 4 mg PO AD #21 tab 10/23/16 [ Rx] Ciprofloxacin HCl [Cipro] 250 mg PO BID #14 tablet 11/10/16 [Rx] Melatonin [Melatin] 1 cap PO Q6H PRN 11/12/16 [History] Allergies No Known Allergies Allergy (Verified 11/12/16 13:35) All Systems Review: A 10-system review of systems was performed and is negative for pertinent findings except as documented above in the HPI. - Cardiovascular Cardiovascular: as per HPI Physical Examination Vital Signs, Last 4 Hours Temp Pulse Resp BP Pulse Ox 11/14/16 09:00 93 121/74 11/14/16 08:10 97 121/80 11/14/16 07:31 98.3 F 99 98 114/94 100 11/14/16 06:30 114/72 11/14/16 06:00 149 104/84 11/14/16 05:30 132 121/86 General: Conversant, No Apparent Distress HEENT: Atraumatic, Normocephaly Cardiac: Reg Rate and Rhythm, Normal S1 and S2 Lungs: Other (coarse breath sounds) Neuro: Alert and responsive Abdomen: Soft Skin: No rashes noted on visualized skin Musculoskeletal: No Chest Wall Tenderness Extremities: Normal Pulses, Other (mild pre-tibial BLE edema; large bruise to right lower leg. ) Results 11/14/16 00:10 11/14/16 09:00 Lab Results 11/13/16 11/14/16 11/14/16 17:51 00:10 00:10 WBC 3.0 L Hgb 9.5 L Hct 27.7 L Plt Count 93 L Sodium 127 L Potassium 3.0 L 3.6 Chloride 100 Carbon Dioxide 19 BUN 6 L Creatinine 0.62 Glucose 117 H Calcium 6.6 L Magnesium 1.3 L 1.8 11/14/16 11/14/16 00:10 09:00 WBC Hgb Hct Plt Count Sodium 130 L 126 L Potassium 3.6 3.9 Chloride 105 102 Carbon Dioxide 20 19 BUN 5 L 5 L Creatinine 0.60 0.63 Glucose 110 H 119 H Calcium 6.3 L 6.4 L Magnesium Active Medications Acetaminophen (Tylenol) 650 mg PO Q6HR PRN PRN Reason: Mild Pain (1-3) Stop: 05/14/17 14:23 Last Admin: 11/13/16 06:58 Dose: 650 mg Amitriptyline HCl (Elavil) 50 mg PO HS [facility] Stop: 05/14/17 21:01 Last Admin: 11/13/16 20:12 Dose: 50 mg Clonazepam (Klonopin) 1 mg PO HS [facility] Stop: 05/14/17 21:01 Last Admin: 11/13/16 20:13 Dose: 1 mg Piperacillin Sod/Tazobactam (Sod 3.375 gm/ Dextrose) 100 mls @ 25 mls/hr IVPB Q8H [facility]IVIA Stop: 05/14/17 21:01 Last Infusion: 11/14/16 09:02 Dose: Infused Potassium Chloride/Sodium Chloride (Kcl 20 Meq In 0.9% Sodium Chloride) 20 meq in 1,000 mls @ 100 mls/hr IVC .Q10H [facility]IA Stop: 05/16/17 01:01 Last Admin: 11/14/16 01:18 Dose: 100 mls/hr Amiodarone HCl/Dextrose (Amiodarone 360mg/200ml Drip Premix) 360 mg in 200 mls @ 16.667 mls/hr IVC CONT LIVIA PRN Reason: 0.5 MG/MIN Stop: 05/16/17 02:31 Last Admin: 11/14/16 08:11 Dose: 0.5 mg/min, 16.667 mls/hr Vancomycin HCl 1,500 mg/ (Dextrose) 250 mls @ 166.67 mls/hr IVPB Q12H [facility]IVIA Stop: 05/16/17 15:01 Ibuprofen (Motrin) 600 mg PO Q8HR PRN; Protocol PRN Reason: Fever Stop: 05/14/17 17:40 Last Admin: 11/13/16 14:54 Dose: 600 mg Levothyroxine Sodium (Synthroid) 100 mcg PO 0630 [facility] Stop: 05/15/17 06:31 Last Admin: 11/14/16 06:05 Dose: 100 mcg Lorazepam (Ativan) 1 mg PO Q6H PRN PRN Reason: Anxiety, Nausea Stop: 05/14/17 14:28 Magnesium Oxide (Mag-Ox) 400 mg PO DAILY PRN PRN Reason: leg cramping Melatonin (Melatonin) 3 mg PO HS PRN PRN Reason: Insomnia Stop: 05/14/17 16:46 Naloxone HCl (Narcan) 0.4 mg IVP Q2MIN PRN PRN Reason: Opioid Reversal Stop: 05/14/17 14:23 Omeprazole (Prilosec) 20 mg PO DAILY LIVIA PRN Reason: Protocol Stop: 05/15/17 09:01 Last Admin: 11/14/16 08:58 Dose: 20 mg Ondansetron HCl (Zofran) 4 mg IVP Q6HR PRN; Protocol PRN Reason: Nausea And Vomiting Stop: 05/14/17 14:32 Oxycodone/Acetaminophen (Percocet 5/325) 1 each PO Q6H PRN PRN Reason: Pain 4-7 Stop: 05/14/17 14:28 Oxymetazoline HCl (Afrin) 1 spray NS Q12HR PRN PRN Reason: Congestion Stop: 05/14/17 16:47 Simvastatin (Zocor) 40 mg PO HS LIVIA Stop: 05/15/17 21:01 Last Admin: 11/13/16 20:13 Dose: 40 mg - Imaging and Cardiology Echo: pending Other Results: Telemetry reviewed; avg HR-130. HR 90's SR upon exam. - EKG Interpretation EKG results cardiology: personally reviewed Consult Discharge Plan - Plan Referrals: NO,PCP [Non-Partnered Physician] -
--- NOTE | 2016-11-14 10:30 | Internal Med Progress Note ---
<Dieudonne Nava T - Last Filed: 11/14/16 13:14> - Constitutional Vitals: Temp Pulse Resp BP Pulse Ox 99.1 F 101 20 133/81 99 11/14/16 11:49 11/14/16 11:38 11/14/16 11:49 11/14/16 11:49 11/14/16 11:49 Internal Medicine: Result - Labs CBC & Chem 7: 11/14/16 00:10 11/14/16 09:00 Labs: Short CBC 11/14/16 Range/Units 00:10 WBC 3.0 L (4.3-11.1) K/mcL Hgb 9.5 L (11.5-15.4) g/dL Hct 27.7 L (35.3-44.9) % Plt Count 93 L (140-400) K/mcL Neutrophils # 2.5 (1.6-8.9) K/mcL BMP 11/13/16 11/14/16 11/14/16 17:51 00:10 00:10 Sodium 127 L 130 L Potassium 3.0 L 3.6 3.6 Chloride 100 105 Carbon Dioxide 19 20 BUN 6 L 5 L Creatinine 0.62 0.60 Glucose 117 H 110 H Calcium 6.6 L 6.3 L 11/14/16 09:00 Sodium 126 L Potassium 3.9 Chloride 102 Carbon Dioxide 19 BUN 5 L Creatinine 0.63 Glucose 119 H Calcium 6.4 L - ABG Interpretation ABG results: ABG ABG pH 7.43 pH Units (7.32-7.45) 11/13/16 23:35 ABG pCO2 32 mmHg (35-45) L 11/13/16 23:35 ABG pO2 80 mmHg (85-104) L 11/13/16 23:35 ABG O2 Saturation 96 % (95-98) 11/13/16 23:35 - Impressions Impressions Retroperitoneum Ultrasound 11/13/16 15:00 IMPRESSION: Lobulated cortices of the bilateral kidneys, likely physiologic. Normal echogenicity of the bilateral kidneys. CT is more sensitive at detecting acute pyelonephritis. Nonspecific mild perinephric fluid surrounding the left kidney, may be related to inflammatory changes. D/ / Miguelito Hernadez MD / Miguelito Hernadez MD Interpreting Provider: Miguelito Hernadez MD Chest X-Ray 11/13/16 23:54 IMPRESSION: Pulmonary edema with left lower lobe atelectasis or pneumonia. D/ / Otilio Jaime MD / Otilio Jaime MD Interpreting Provider: Otilio Jaime MD Consult Discharge Plan - Plan Referrals: NO,PCP [Non-Partnered Physician] - - Attending Attestation I examined this patient and my medical decision-making was reviewed with the OPERATIONAL RISK ANALYST/PA/Advanced Practice Nurse/Resident Physician. I agree with the documented findings, disposition and treatment plan as described except to the extent set forth below. 71 Y/O F , seen independently at bedside She has a PMH of breast CA s/p therapy, CLL on chemotherapy, tubular adenoma per most recent colonoscopy esophagitis, chronic pancytopenia due to cancer She is admitted and being managed for Sepsis secondary to Suspected Pneumonia, UTI Her last febrile episode was yesterday in the evening, temperature 103, associated at bedtime with A. fib with RVR. Patient was transferred to [place] and cardiology was consulted. She seen at that site this morning with her son she denies any new complaints heart rate has been stable on several medications cardiology currently recommends by mouth Cardizem. Physical exam VSS, not in distress, speaks full sentencs, HR is RRR, no edema , abdomen is benign Blood cultures, urine culture preliminary no growth. We have been unable to obtain sputum. Labs revealed stable leukopenia, hemoglobin is stable, potassium is corrected, kidney function is at baseline. A/P: *Sepsis, discontinue Vancomycin, continue Zosyn, continue supportive care, follow final cultures *Afib with RVR-Continue cardizem po, poor candidate for antiocoagulation due to thrombocytopenia, monitor HR *UTI: Continue antibiotics as above *Hyponatremia; corrected, monitor closely. *Pancytopenia-Chronic *Breast CA/CLL: Chronic, if patient remains here by [place], will consult Oncology <Kayleigh Gao - Last Filed: 11/14/16 14:28> Date of Encounter: 11/14/16 Time of Encounter: 08:15 - Assessment and plan (1) Sepsis Current Visit: Yes Status: Acute Assessment and plan: - 3 SIRS criteria (fever, tachycardia & leukopenia) with possible source infections likely UTI and/or pulmonary. - Patient is immunosuppressed given CLL and recent chemo. - Continue Zosyn for broad coverage. Discontinue vancomycin given S. aureus is less likely given blood cultures remain NGTD. - Blood cultures from 11/12 NGTD. - Will obtain sputum culture for possible respiratory infection. - Closely monitor. Qualifiers: Sepsis type: sepsis due to unspecified organism Qualified Code(s): A41.9 - Sepsis, unspecified organism (2) Atrial fibrillation Current Visit: Yes Status: Acute Assessment and plan: - After reviewing EKG and strips, cardiology thinks this is new onset A-fib RVR in the setting of sepsis and electrolyte abnormalities. - CHA2DS Vasc = 3 (age, female & HTN) suggests patient should be on anticoagulation. But will hold for now given her current thrombocytopenia. - Will start cardizem 120 mg PO daily. - Closely monitor with telemetry. Qualifiers: Atrial fibrillation type: paroxysmal Qualified Code(s): I48.0 - Paroxysmal atrial fibrillation (3) Hyponatremia Current Visit: Yes Status: Acute Assessment and plan: - Acute hyponatremia with Na as low as 122 on 11/12 - Still hyponatremic as Na at 126 today. Likely the dilutional effect from the large amount of medications in drip patient received yesterday. - Continue to monitor. (4) Hypokalemia Current Visit: Yes Status: Acute Assessment and plan: - K at 2.6 on initial presentation. - Resolved as K at 3.9 today. - Continue to monitor and giving K supplement as needed. (5) Pancytopenia Current Visit: Yes Status: Chronic Assessment and plan: - Chronic due to CLL. - Leukopenia & thrombocytopenia slightly improve compared to yesterday with Hgb remains stable. - Continue to monitor closely with CBC. (6) UTI (urinary tract infection) Current Visit: Yes Status: Acute Assessment and plan: - Urine culture from 11/09/16 grew grullon-sensitive Klebsiella pneumoniae. - No growth for repeated urine culture from 11/12/16. - Continue current antibiotic regimen. Qualifiers: Urinary tract infection type: acute cystitis Hematuria presence: without hematuria Qualified Code(s): N30.00 - Acute cystitis without hematuria (7) DVT prophylaxis Current Visit: Yes Status: Acute Assessment and plan: - Calf pump as mechanical DVT prophylaxis given her current thrombocytopenia. - Subjective Interval history: Patient became significantly tachycardic (as fast as 170s) that failed to response to maneuvers or adenosine yesterday afternoon. Patient was started on Cardizem drip and able to maintain her blood pressure at that time. But her blood pressure dropped to as low 95/62 at midnight and therefore switched to amiodarone drip. Patient was seen and examined this morning. Patient reports feeling better than yesterday. She denies fever, chills, chest pain, shortness of breath, nausea, vomiting, diarrhea. Sinus rhythm with rate of 90s was noted on bedside monitor. Patient has been afebrile since 6 pm last night. - Constitutional Vitals: Temp Pulse Resp BP Pulse Ox 98.3 F 93 98 121/74 100 11/14/16 07:31 11/14/16 09:00 11/14/16 07:31 11/14/16 09:00 11/14/16 07:31 General appearance: Present: cooperative, mild distress, A&O X 3, answers questions appropriately - Head Head exam: Present: atraumatic, normocephalic - Eye Eye exam: Present: PERRL, conjuntiva pink, sclera anicteric - Neck Neck exam general surgery: Present: supple, trachea midline. Absent: lymphadenopathy - Respiratory Respiratory exam: Present: CTAB. Absent: accessory muscle use, rales, rhonchi, wheezes - Cardiovascular Cardiovascular exam: Present: +S1, +S2, tachycardia. Absent: diastolic murmur, gallop, rubs, systolic murmur - GI/Abdominal GI/Abdominal exam: Present: normal bowel sounds, soft, no peritoneal signs. Absent: distended, tenderness - Extremities Exam Extremities exam: Present: pedal edema (Mild), warm, radial pulses palpable and symetrical. Absent: calf tenderness, cyanotic - Neurological Exam Neurological exam: Present: CN II-XII intact, oriented X3, no focal deficits. Absent: pronater drift, facial droop, speech deficit - Skin Skin exam: Present: dry, intact. Absent: rash Internal Medicine: Result - Labs CBC & Chem 7: 11/14/16 00:10 11/14/16 09:00 Labs: Short CBC 11/14/16 Range/Units 00:10 WBC 3.0 L (4.3-11.1) K/mcL Hgb 9.5 L (11.5-15.4) g/dL Hct 27.7 L (35.3-44.9) % Plt Count 93 L (140-400) K/mcL Neutrophils # 2.5 (1.6-8.9) K/mcL BMP 11/13/16 11/14/16 11/14/16 17:51 00:10 00:10 Sodium 127 L 130 L Potassium 3.0 L 3.6 3.6 Chloride 100 105 Carbon Dioxide 19 20 BUN 6 L 5 L Creatinine 0.62 0.60 Glucose 117 H 110 H Calcium 6.6 L 6.3 L 11/14/16 09:00 Sodium 126 L Potassium 3.9 Chloride 102 Carbon Dioxide 19 BUN 5 L Creatinine 0.63 Glucose 119 H Calcium 6.4 L - ABG Interpretation ABG results: ABG ABG pH 7.43 pH Units (7.32-7.45) 11/13/16 23:35 ABG pCO2 32 mmHg (35-45) L 11/13/16 23:35 ABG pO2 80 mmHg (85-104) L 11/13/16 23:35 ABG O2 Saturation 96 % (95-98) 11/13/16 23:35 - Impressions Impressions Retroperitoneum Ultrasound 11/13/16 15:00 IMPRESSION: Lobulated cortices of the bilateral kidneys, likely physiologic. Normal echogenicity of the bilateral kidneys. CT is more sensitive at detecting acute pyelonephritis. Nonspecific mild perinephric fluid surrounding the left kidney, may be related to inflammatory changes. D/ / Miguelito Hernadez MD / Miguelito Hernadez MD Interpreting Provider: Miguelito Hernadez MD Chest X-Ray 11/13/16 23:54 IMPRESSION: Pulmonary edema with left lower lobe atelectasis or pneumonia. D/ / Otilio Jaime MD / Otilio Jaime MD Interpreting Provider: Otilio Jaime MD - VTE Documentation of Mechanical Device: Intermittent pneumatic compression device
--- NOTE | 2016-11-14 12:12 | ECHO - Doppler Report ---
Echocardiogram Name: Morenita Fish Date of Study: 11/14/2016 Date: 1945 Ht: 64.0 in Medical Record#: [id number] Age: 71 Wt: 186.0 lb Gender: Female BSA: 1.9 Order #: [id number] Location: [facility] Room #: 2N11 Reading Physician: Estee Calderon DO Customer Loyalty Representative: Gely Guadarrama RVT, [facility] Ordering Physician: Kayleigh Gao DO Primary Physician: Flaquito Church DO Indications: SVT Impressions: LVEF 60%. Normal left ventricular size and systolic function. There is evidence of mild diastolic dysfunction of the left ventricle. Normal right ventricular size and function. Mild mitral regurgitation. No pulmonary hypertension. Left Ventricular Wall Motion: Rest Echo Findings All wall segments showed normal motion. Findings: Study Quality * Technically adequate exam. ECG Findings * Normal sinus rhythm. Left Ventricle * LVEF 60%. * Normal LV chamber size, wall thickness and function. * Mild left ventricular diastolic dysfunction. Left Atrium * Normal left atrial size. Mitral Valve * Mildly thickened mitral valve leaflets. * No mitral stenosis. * Mild mitral regurgitation. Aortic Valve * No aortic regurgitation. * Trileaflet aortic valve. * Normal aortic valve structure. * No aortic stenosis. Tricuspid Valve * Normal tricuspid valve structure. * Trace tricuspid regurgitation. * Estimated RA pressure is 3 mmHg. * Estimated RVSP is 26 mmHg. * No pulmonary hypertension. Pulmonic Valve * Pulmonic valve is not well visualized. * No pulmonic stenosis. * Trace pulmonic regurgitation. Pulmonary Artery * Pulmonary artery not well visualized. Right Ventricle * Normal right ventricular structure and function. Right Atrium * Normal right atrial size. Interatrial Septum * No evidence of PFO by color Doppler. IVC * Normal IVC dimensions and inspiratory collapse. Pericardium * There is no pericardial effusion present. Aorta * Normally sized aortic root. History Hypertension Hypercholesteremia Family History of CAD Measurements: BP: 114/ 94 2D Normal Values RVIDd: 2.90 cm <2.7 cm IVSd: 1.40 cm 0.6 - 1.0 cm LVIDd: 3.50 cm 3.7 - 5.6 cm LVPWd: 1.10 cm 0.6 - 1.1 cm LVIDs: 2.40 cm 1.5 - 3.6 cm AO: 2.60 cm < 4.0 cm LA: 3.70 cm 2.0 - 4.0cm %FS: 31.40 cm >25 % LA volume: 42 Mitral Valve Dec Time:264.00 msec Peak E:1.13 m/sec Peak A:.80 m/sec E/A Ratio:1.4 Peak E' Lat Ishmael:11.2 cm/s Peak E' Med Ishmael:10.4 cm/s E/E' Lat Ratio:10.1 E/E' Med Ratio:10.9 Tricuspid Valve TV Regurg Peak Grad: 23.00mmHg TV Regurg Peak Ishmael: 2.41m/sec Updated by Estee Calderon on 11/14/2016 12:08:39 PM electronically signed on 11/14/2016 12:09:07 PM with status of Final Wall Motion Gallegos: 1=Normal, 2=Hypokinesis, 3=Akinesis, 4=Dyskinesis, 5=Aneurysmal, 6=Hyperkinetic, X=Not Visualized (Blank)=Missing
[2016-11-14] MEDS: Diltiazem CD (24hr) 120 MG CAPSULE PO SCH (12:34)
[2016-11-14] MEDS ORDERED: Vancomycin 1,500 MG in D5% in Water 250 ML IVPB SCH (15:00)
[2016-11-14] MEDS: Acetaminophen 325 MG TABLET PO PRN (16:17)
[2016-11-14] MEDS: clonazePAM 1 MG TABLET PO SCH (20:38)
[2016-11-15] MEDS: Piperacillin/Tazobactam 3.375 GM in D5% in Water (Mini-Bag+) 100 ML IVPB SCH ×3 (04:13→21:14)
[2016-11-15 04:45] LABS: Basophils % 0.4 %; Eosinophils # 0.1 K/mcL (0.0-0.6); Eosinophils % 3.6 %; Hematocrit 28.3 % (35.3-44.9); Hemoglobin 9.8 g/dL (11.5-15.4); Immature Granulocytes % 0.4 % (0-4); Lymphocytes # 0.1 K/mcL (0.6-4.6); Lymphocytes % 3.2 %; Mean Corpuscular HGB Conc 34.6 g/dL (31.6-35.5); Mean Corpuscular Hemoglobin 29.3 pg (28.0-33.3); Mean Corpuscular Volume 84.7 fL (83.0-100.0); Monocytes # 0.3 K/mcL (0.0-1.3); Neutrophils # 2.1 K/mcL (1.6-8.9); Platelet Count 106 K/mcL (140-400); Red Blood Count 3.34 M/mcL (3.82-4.97); Red Cell Distribution Width 14.6 % (11.5-14.5); Segmented Neutrophils % 82.4 %
[2016-11-15 05:06] LABS: BUN/Creatinine Ratio 8 (6-26); Calcium 7.1 mg/dL (8.6-10.8); Carbon Dioxide 21 mEq/L (19-29); Chloride 100 mEq/L (98-109); Glucose 96 mg/dL (70-99); Osmolality,Calculated 259 (280-300); Potassium 3.7 mEq/L (3.5-4.5); Sodium 126 mEq/L (136-145); eGFR For African Americans > 60 (> 60); eGFR For Non-African Americans > 60 (> 60)
[2016-11-15 05:12] LABS: Blood Urea Nitrogen 5 mg/dL (7-20)
[2016-11-15 05:18] LABS: Platelet Estimate Decreased (Normal)
[2016-11-15 05:19] LABS: Anisocytosis 1+ (Not Present)
[2016-11-15] MEDS: Diltiazem CD (24hr) 120 MG CAPSULE PO SCH (07:34)
[2016-11-15] MEDS: Acetaminophen 325 MG TABLET PO PRN ×2 (07:42→16:22)
[2016-11-15] MEDS ORDERED: Aminoglycoside Consult 1 EACH MC ONE (08:05)
--- NOTE | 2016-11-15 09:13 | Internal Med Progress Note ---
<Kayleigh Gao - Last Filed: 11/15/16 12:09> Date of Encounter: 11/15/16 Time of Encounter: 08:15 - Assessment and plan (1) Sepsis Current Visit: Yes Status: Acute Assessment and plan: - 3 SIRS criteria (fever, tachycardia & leukopenia) with possible source infections likely UTI and/or pulmonary. - Patient is immunosuppressed given CLL and recent chemo. - Blood cultures from 11/12 NGTD. - Urine culture form 11/12 no growth. - Suspect more likely respiratory infection. Attempt to obtain sputum culture if possible. - Continue Zosyn (Day 4). - Closely monitor. Qualifiers: Sepsis type: sepsis due to unspecified organism Qualified Code(s): A41.9 - Sepsis, unspecified organism (2) Atrial fibrillation Current Visit: Yes Status: Acute Assessment and plan: - After reviewing EKG and strips, cardiology thinks this is new onset A-fib RVR in the setting of sepsis and electrolyte abnormalities. - CHA2DS Vasc = 3 (age, female & HTN) suggests patient should be on anticoagulation. But will hold for now given her current thrombocytopenia. - Sinus rhythm with rate in 90s on encounter. - Will increase Cardizem to 180 mg PO daily for better rate control - Appreciate cardiology assistance on patient care. - Closely monitor with telemetry. Qualifiers: Atrial fibrillation type: paroxysmal Qualified Code(s): I48.0 - Paroxysmal atrial fibrillation (3) Hyponatremia Current Visit: Yes Status: Acute Assessment and plan: - Acute hyponatremia with Na as low as 122 on 11/12 - Na stable at 126 today. Will give 500 mL of NS bolus x1. - Continue to monitor. (4) Pancytopenia Current Visit: Yes Status: Chronic Assessment and plan: - Chronic due to CLL. - Leukopenia slightly worsens but thrombocytopenia slightly improve compared to yesterday with Hgb remains stable. - Continue to monitor closely with CBC. (5) UTI (urinary tract infection) Current Visit: Yes Status: Acute Assessment and plan: - Urine culture from 11/09/16 grew grullon-sensitive Klebsiella pneumoniae. - No growth for repeated urine culture from 11/12/16. - Continue current antibiotic regimen. Qualifiers: Urinary tract infection type: acute cystitis Hematuria presence: without hematuria Qualified Code(s): N30.00 - Acute cystitis without hematuria (6) Hypokalemia Current Visit: Yes Status: Acute Assessment and plan: - K at 2.6 on initial presentation. - Resolved as K at 3.7 today. - Continue to monitor and giving K supplement as needed. (7) DVT prophylaxis Current Visit: Yes Status: Acute Assessment and plan: - Calf pump as mechanical DVT prophylaxis given her current thrombocytopenia. - Subjective Interval history: No significant event noted overnight. Patient was seen and examined this morning. Patient reports feeling better than yesterday. She denies fever, chills , chest pain, shortness of breath, nausea, vomiting, diarrhea. Sinus rhythm with rate of 100s was noted on bedside monitor. Patient has been afebrile since 4 pm last evening. - Constitutional Vitals: Temp Pulse Resp BP Pulse Ox 99.5 F 107 16 141/83 99 11/15/16 07:27 11/15/16 07:35 11/15/16 07:27 11/15/16 07:27 11/15/16 07:27 General appearance: Present: cooperative, mild distress, A&O X 3, answers questions appropriately - Head Head exam: Present: atraumatic, normocephalic - Eye Eye exam: Present: PERRL, conjuntiva pink, sclera anicteric - Neck Neck exam general surgery: Present: supple, trachea midline. Absent: lymphadenopathy - Respiratory Respiratory exam: Present: rales (Few bibasilar crackles.). Absent: accessory muscle use, rhonchi, wheezes - Cardiovascular Cardiovascular exam: Present: +S1, +S2, tachycardia. Absent: diastolic murmur, gallop, rubs, systolic murmur - GI/Abdominal GI/Abdominal exam: Present: normal bowel sounds, soft, no peritoneal signs. Absent: distended, tenderness - Extremities Exam Extremities exam: Present: warm, radial pulses palpable and symetrical. Absent : calf tenderness, cyanotic, pedal edema - Neurological Exam Neurological exam: Present: CN II-XII intact, oriented X3, no focal deficits. Absent: pronater drift, facial droop, speech deficit - Skin Skin exam: Present: dry, intact. Absent: rash Internal Medicine: Result - Labs CBC & Chem 7: 11/15/16 04:15 11/15/16 04:15 Labs: Short CBC 11/15/16 Range/Units 04:15 WBC 2.5 L (4.3-11.1) K/mcL Hgb 9.8 L (11.5-15.4) g/dL Hct 28.3 L (35.3-44.9) % Plt Count 106 L (140-400) K/mcL Neutrophils # 2.1 (1.6-8.9) K/mcL BMP 11/14/16 11/15/16 09:00 04:15 Sodium 126 L 126 L Potassium 3.9 3.7 Chloride 102 100 Carbon Dioxide 19 21 BUN 5 L 5 L Creatinine 0.63 0.63 Glucose 119 H 96 Calcium 6.4 L 7.1 L - ABG Interpretation ABG results: ABG ABG pH 7.43 pH Units (7.32-7.45) 11/13/16 23:35 ABG pCO2 32 mmHg (35-45) L 11/13/16 23:35 ABG pO2 80 mmHg (85-104) L 11/13/16 23:35 ABG O2 Saturation 96 % (95-98) 11/13/16 23:35 - VTE Documentation of Mechanical Device: Intermittent pneumatic compression device Consult Discharge Plan - Plan Referrals: NO,PCP [Non-Partnered Physician] - <Dieudonne Nava T - Last Filed: 11/15/16 14:07> - Constitutional Vitals: Temp Pulse Resp BP Pulse Ox 98.4 F 102 16 120/70 100 11/15/16 11:28 11/15/16 11:45 11/15/16 11:28 11/15/16 11:28 11/15/16 11:28 Internal Medicine: Result - Labs CBC & Chem 7: 11/15/16 04:15 11/15/16 04:15 Labs: Short CBC 11/15/16 Range/Units 04:15 WBC 2.5 L (4.3-11.1) K/mcL Hgb 9.8 L (11.5-15.4) g/dL Hct 28.3 L (35.3-44.9) % Plt Count 106 L (140-400) K/mcL Neutrophils # 2.1 (1.6-8.9) K/mcL BMP 11/15/16 04:15 Sodium 126 L Potassium 3.7 Chloride 100 Carbon Dioxide 21 BUN 5 L Creatinine 0.63 Glucose 96 Calcium 7.1 L - ABG Interpretation ABG results: ABG ABG pH 7.43 pH Units (7.32-7.45) 11/13/16 23:35 ABG pCO2 32 mmHg (35-45) L 11/13/16 23:35 ABG pO2 80 mmHg (85-104) L 11/13/16 23:35 ABG O2 Saturation 96 % (95-98) 11/13/16 23:35 - Attending Attestation I examined this patient and my medical decision-making was reviewed with the SHOP HELPER/PA/Advanced Practice Nurse/Resident Physician. I agree with the documented findings, disposition and treatment plan as described except to the extent set forth below. 71 Y/O F , seen independently at bedside She has a PMH of breast CA s/p therapy, CLL on chemotherapy, tubular adenoma per most recent colonoscopy esophagitis, chronic pancytopenia due to cancer She is admitted and being managed for Sepsis secondary to Suspected Pneumonia, UTI Her last febrile episode was yesterday in the evening, temperature 100.4 She seen at bedside this morning with her SO she denies any new complaints Physical exam VSS, not in distress, speaks full sentencs, HR is RRR, no edema , abdomen is benign Blood cultures, urine culture preliminary no growth. We have been unable to obtain sputum. Labs revealed stable leukopenia, hemoglobin is stable, potassium is corrected, kidney function is at baseline. A/P: *Sepsis, Continue Zosyn, continue supportive care, blood and urine culture negative *Afib with RVR-Continue Cardizem po, increase to 180mg, poor candidate for anticoagulation due to thrombocytopenia, monitor HR *UTI: Continue antibiotics as above *Hyponatremia; corrected slowly, give 500cc saline, bolus, monitor closely. *Pancytopenia-Chronic, stable *Breast CA/CLL: Chronic, if patient remains here by [place], will consult Oncology
--- NOTE | 2016-11-15 11:12 | Cardiology Progress Note ---
Date of Encounter: 11/15/16 Time of Encounter: 11:00 Assessment and Plan (1) Atrial fibrillation Current Visit: Yes Status: Acute Suspected new onset atrial fibrillation with RVR in the setting of sepsis and electrolyte abnormalities. Patient denies hx of atrial fibrillation or irregular heart rhythm. Brief episode of PAF noted per telemetry review. SR upon exam, HR 90s. Will increase Cardizem to 180 mg daily--continue to increase if needed as BP will tolerate. TTE: EF 60% mild LVDD, mild MR, normal wall motion. CHA2Ds Vasc=3 (Age, female, HTN). Ideally, patient should be on anticoagulation ; however noted to have declining HgB (10.8 upon admission) and PLT are 93. Discussed with Dr. Casey Sethi, she is a poor candidate for AC, will start ASA 81 mg daily. Can be re-evaluated as outpatient. No further inpatient recommendations from Cardiology standpoint; follow-up with [facility] as outpatient in 2-3 weeks, will coordinate appt via eCW. Qualifiers: Atrial fibrillation type: paroxysmal Qualified Code(s): I48.0 - Paroxysmal atrial fibrillation (2) CLL (chronic lymphocytic leukemia) Current Visit: No Status: Chronic Reports 5 year hx of CLL, currently undergoing chemotherapy. Has associated pancytopenia--PLT 93, HgB 9.5 (10.8) upon admission. (3) Sepsis Current Visit: Yes Status: Acute Immunosuppressed due to chemotherapy. T max 103.1 in the past 24 hours. Persistent electrolyte abnormalities--defer mgmt to Primary service. Qualifiers: Sepsis type: sepsis due to unspecified organism Qualified Code(s): A41.9 - Sepsis, unspecified organism Discussion w patient/family: The assessment and plan as outlined above was discussed with the patient and/or family members who expressed understanding and agreement. All questions were answered. Thank you for involving us in the care of your patient. Please call with any questions. The patient was discussed and reviewed with Dr. Casey Sethi; Cardiology will sign-off, please call with questions. Subjective Principal diagnosis: afib, sepsis Interval history: Seen and examined. No complaints or events overnight. Patient reports she is fatigued, but symptoms have improved. SR during examination. Objective Vital Signs, Last 4 Hours Temp Pulse Resp BP Pulse Ox 11/15/16 07:35 107 11/15/16 07:27 99.5 F 110 16 141/83 99 General: Conversant, No Apparent Distress HEENT: Atraumatic, Mucus Membranes Moist Cardiac: Reg Rate and Rhythm, Normal S1 and S2 Lungs: Normal Breath Sounds Neuro: Alert and responsive Abdomen: Soft Skin: No rashes noted on visualized skin Musculoskeletal: No Chest Wall Tenderness Extremities: No Edema, Normal Pulses Results 11/15/16 04:15 11/15/16 04:15 Lab Results 11/15/16 11/15/16 04:15 04:15 WBC 2.5 L Hgb 9.8 L Hct 28.3 L Plt Count 106 L Sodium 126 L Potassium 3.7 Chloride 100 Carbon Dioxide 21 BUN 5 L Creatinine 0.63 Glucose 96 Calcium 7.1 L Active Medications Acetaminophen (Tylenol) 650 mg PO Q6HR PRN PRN Reason: Mild Pain (1-3) Stop: 05/14/17 14:23 Last Admin: 11/15/16 07:42 Dose: 650 mg Amitriptyline HCl (Elavil) 50 mg PO HS [facility] Stop: 05/14/17 21:01 Last Admin: 11/14/16 20:38 Dose: Not Given Clonazepam (Klonopin) 1 mg PO HS [facility] Stop: 05/14/17 21:01 Last Admin: 11/14/16 20:38 Dose: 1 mg Diltiazem HCl (Cardizem Cd) 180 mg PO DAILY [facility] Stop: 05/18/17 09:01 Piperacillin Sod/Tazobactam (Sod 3.375 gm/ Dextrose) 100 mls @ 25 mls/hr IVPB Q8H [facility] Stop: 05/14/17 21:01 Last Infusion: 11/15/16 08:35 Dose: Infused Ibuprofen (Motrin) 600 mg PO Q8HR PRN; Protocol PRN Reason: Fever Stop: 05/14/17 17:40 Last Admin: 11/13/16 14:54 Dose: 600 mg Levothyroxine Sodium (Synthroid) 100 mcg PO 0630 [facility] Stop: 05/15/17 06:31 Last Admin: 11/15/16 06:23 Dose: 100 mcg Lorazepam (Ativan) 1 mg PO Q6H PRN PRN Reason: Anxiety, Nausea Stop: 05/14/17 14:28 Magnesium Oxide (Mag-Ox) 400 mg PO DAILY PRN PRN Reason: leg cramping Melatonin (Melatonin) 3 mg PO HS PRN PRN Reason: Insomnia Stop: 05/14/17 16:46 Naloxone HCl (Narcan) 0.4 mg IVP Q2MIN PRN PRN Reason: Opioid Reversal Stop: 05/14/17 14:23 Omeprazole (Prilosec) 20 mg PO DAILY LIVIA PRN Reason: Protocol Stop: 05/15/17 09:01 Last Admin: 11/15/16 07:42 Dose: 20 mg Ondansetron HCl (Zofran) 4 mg IVP Q6HR PRN; Protocol PRN Reason: Nausea And Vomiting Stop: 05/14/17 14:32 Oxycodone/Acetaminophen (Percocet 5/325) 1 each PO Q6H PRN PRN Reason: Pain 4-7 Stop: 05/14/17 14:28 Oxymetazoline HCl (Afrin) 1 spray NS Q12HR PRN PRN Reason: Congestion Stop: 05/14/17 16:47 Simvastatin (Zocor) 40 mg PO HS [facility] Stop: 05/15/17 21:01 Last Admin: 11/14/16 20:38 Dose: Not Given - Imaging and Cardiology Echo: report reviewed Other Results: Telemetry reviewed. - EKG Interpretation EKG results cardiology: personally reviewed - VTE Documentation of Mechanical Device: Intermittent pneumatic compression device Consult Discharge Plan - Plan Referrals: NO,PCP [Non-Partnered Physician] -
[2016-11-15] MEDS ORDERED: 0.9 % Sodium Chloride 500 ML IVC ONE (12:09)
[2016-11-15] MEDS: *HR* OxyCODONE/APAP 5/325 TABLET PO PRN (19:22)
[2016-11-15] MEDS: clonazePAM 1 MG TABLET PO SCH (21:13)
[2016-11-16] MEDS: Piperacillin/Tazobactam 3.375 GM in D5% in Water (Mini-Bag+) 100 ML IVPB SCH ×3 (05:40→19:53)
[2016-11-16 06:08] LABS: Hematocrit 28.5 % (35.3-44.9); Hemoglobin 9.6 g/dL (11.5-15.4); Mean Corpuscular HGB Conc 33.7 g/dL (31.6-35.5); Mean Corpuscular Hemoglobin 28.5 pg (28.0-33.3); Mean Corpuscular Volume 84.6 fL (83.0-100.0); Mean Platelet Volume 10.7 fL (9.4-12.4); Platelet Count 113 K/mcL (140-400); Red Blood Count 3.37 M/mcL (3.82-4.97); Red Cell Distribution Width 14.5 % (11.5-14.5)
[2016-11-16 06:31] LABS: BUN/Creatinine Ratio 8 (6-26); Calcium 6.9 mg/dL (8.6-10.8); Carbon Dioxide 22 mEq/L (19-29); Chloride 96 mEq/L (98-109); Glucose 90 mg/dL (70-99); Osmolality,Calculated 257 (280-300); Potassium 3.5 mEq/L (3.5-4.5); Sodium 125 mEq/L (136-145); eGFR For African Americans > 60 (> 60); eGFR For Non-African Americans > 60 (> 60)
[2016-11-16 06:36] LABS: Blood Urea Nitrogen 5 mg/dL (7-20)
[2016-11-16 07:20] LABS: Lymphocytes # 0.2 K/mcL (0.6-4.6); Monocytes # 0.2 K/mcL (0.0-1.3); Neutrophils # 1.7 K/mcL (1.6-8.9); Platelet Estimate Slight Decrease (Normal); Reactive Lymphocytes Present (Not Present)
[2016-11-16] MEDS: Diltiazem CD (24hr) 240 MG CAPSULE PO SCH (08:37)
[2016-11-16] MEDS ORDERED: Diltiazem CD (24hr) 180 MG CAPSULE PO SCH (09:00)
--- NOTE | 2016-11-16 09:32 | Electrocardiograph Report ---
[employer] Test Date: 2016-11-12 Pat Name: Morenita Fish Department: [id number] Room: 2N11 Gender: F Director Of Marketing: : 1945 Requested By: Shannan Orta Order Number: [id number] Reading MD: Carlos Botello MD Measurements Intervals [place] Rate: 118 P: 107 PA: 162 QRS: -58 QRSD: 85 T: 35 QT: 304 QTc: 374 Interpretive Statements SINUS TACHYCARDIA PATTERN CONSISTENT WITH PULMONARY DISEASE LEFT ANTERIOR FASCICULAR BLOCK [QRS AXIS <= -45, QR IN I, RS IN II] Electronically Signed On 11-16-2016 9:31:19 EDT by Carlos Botello MD
--- NOTE | 2016-11-16 10:34 | Internal Med Progress Note ---
<Kayleigh Gao - Last Filed: 11/16/16 13:56> Date of Encounter: 11/16/16 Time of Encounter: 08:45 - Assessment and plan (1) Sepsis Current Visit: Yes Status: Acute Assessment and plan: - 3 SIRS criteria (fever, tachycardia & leukopenia) with possible source infections likely UTI and/or pulmonary. - Patient is immunosuppressed given CLL and recent chemo. - Blood cultures from 11/12 NGTD. - Urine culture form 11/12 no growth. - Patient continues to have fever daily with worsening leukopenia raising the concern of pyelo/renal abscess. - CT A/P with IV contrast on 11/16 suggests bilateral pyelonephritis with mild right-sided hydronephrosis & hydroureter. - Continue Zosyn (Day 5). - Closely monitor. Qualifiers: Sepsis type: sepsis due to unspecified organism Qualified Code(s): A41.9 - Sepsis, unspecified organism (2) UTI (urinary tract infection) Current Visit: Yes Status: Acute Assessment and plan: - Urine culture from 11/09/16 grew grullon-sensitive Klebsiella pneumoniae. - No growth for repeated urine culture from 11/12/16. - CT A/P with IV contrast on 11/16 suggests bilateral pyelonephritis with mild right-sided hydronephrosis & hydroureter. - Continue current antibiotic regimen. Qualifiers: Urinary tract infection type: acute cystitis Hematuria presence: without hematuria Qualified Code(s): N30.00 - Acute cystitis without hematuria (3) Atrial fibrillation Current Visit: Yes Status: Acute Assessment and plan: - After reviewing EKG and strips, cardiology thinks this is new onset A-fib RVR in the setting of sepsis and electrolyte abnormalities. - CHA2DS Vasc = 3 (age, female & HTN) suggests patient should be on anticoagulation. But will hold for now given her current thrombocytopenia. - Sinus rhythm with rate in 100s on encounter. - Cardizem has been incresased to 180 mg PO daily for better rate control. - Appreciate cardiology assistance on patient care. - Closely monitor with telemetry. Qualifiers: Atrial fibrillation type: paroxysmal Qualified Code(s): I48.0 - Paroxysmal atrial fibrillation (4) Hyponatremia Current Visit: Yes Status: Acute Assessment and plan: - Acute hyponatremia with Na as low as 122 on 11/12 - Na stable at 126 today. Will give 500 mL of NS bolus x1. - Continue to monitor. (5) Pancytopenia Current Visit: Yes Status: Chronic Assessment and plan: - Chronic due to CLL and associated chemotherapy. But the leukopenia can be partially contributed by sepsis. - Leukopenia got worse with ANC 1722 today. - Thrombocytopenia and anemia remains stable. - Continue to monitor closely with CBC. (6) Hypokalemia Current Visit: Yes Status: Acute Assessment and plan: - K at 2.6 on initial presentation. - Resolved as K at 3.5 today. - Continue to monitor and giving K supplement as needed. (7) DVT prophylaxis Current Visit: Yes Status: Acute Assessment and plan: - Calf pump as mechanical DVT prophylaxis given her current thrombocytopenia. - Subjective Interval history: Patient had fever of 100.4 at 4 pm yesterday. Patient was seen and examined this morning. Patient reports feeling okay. She denies fever, chills, chest pain , shortness of breath, nausea, vomiting, diarrhea. Sinus rhythm with rate of 100s was noted on bedside monitor. - Constitutional Vitals: Temp Pulse Resp BP Pulse Ox 98.7 F 116 16 126/79 97 11/16/16 07:22 11/16/16 08:30 11/16/16 07:22 11/16/16 07:22 11/16/16 07:22 General appearance: Present: cooperative, mild distress, A&O X 3, answers questions appropriately - Head Head exam: Present: atraumatic, normocephalic - Eye Eye exam: Present: PERRL, conjuntiva pink, sclera anicteric - Neck Neck exam general surgery: Present: supple, trachea midline. Absent: lymphadenopathy - Respiratory Respiratory exam: Present: CTAB. Absent: accessory muscle use, rales, rhonchi, wheezes - Cardiovascular Cardiovascular exam: Present: +S1, +S2, tachycardia. Absent: diastolic murmur, gallop, rubs, systolic murmur - GI/Abdominal GI/Abdominal exam: Present: normal bowel sounds, soft, no peritoneal signs. Absent: distended, tenderness - Extremities Exam Extremities exam: Present: warm, radial pulses palpable and symetrical. Absent : calf tenderness, cyanotic, pedal edema - Neurological Exam Neurological exam: Present: CN II-XII intact, oriented X3, no focal deficits. Absent: pronater drift, facial droop, speech deficit - Skin Skin exam: Present: dry, intact. Absent: rash Internal Medicine: Result - Labs CBC & Chem 7: 11/16/16 04:00 11/16/16 05:45 Labs: Short CBC 11/16/16 Range/Units 04:00 WBC 2.1 L (4.3-11.1) K/mcL Hgb 9.6 L (11.5-15.4) g/dL Hct 28.5 L (35.3-44.9) % Plt Count 113 L (140-400) K/mcL Neutrophils # 1.7 (1.6-8.9) K/mcL BMP 11/16/16 05:45 Sodium 125 L Potassium 3.5 Chloride 96 L Carbon Dioxide 22 BUN 5 L Creatinine 0.59 Glucose 90 Calcium 6.9 L - ABG Interpretation ABG results: ABG ABG pH 7.43 pH Units (7.32-7.45) 11/13/16 23:35 ABG pCO2 32 mmHg (35-45) L 11/13/16 23:35 ABG pO2 80 mmHg (85-104) L 11/13/16 23:35 ABG O2 Saturation 96 % (95-98) 11/13/16 23:35 - Impressions Impressions Abdomen CT 11/16/16 07:31 IMPRESSION: 1. Increased fat stranding adjacent to both kidneys as well as urothelial thickening, which is nonspecific but could be seen with pyelonephritis. Evaluation for pyelonephritis and renal abscess is limited by lack of intravenous contrast. 2. Small to moderate bilateral pleural effusions. 3. Mild diverticulosis. D/ / 11/16/2016 08:51:45 Spike Greer MD / Kacey Carpenter Interpreting Provider: Spike Greer MD - VTE Documentation of Mechanical Device: Intermittent pneumatic compression device Consult Discharge Plan - Plan Referrals: NO,PCP [Non-Partnered Physician] - Flaquito Church, DO [Primary Care Provider] - <Dieudonne Nava T - Last Filed: 11/16/16 15:21> - Constitutional Vitals: Temp Pulse Resp BP Pulse Ox 97.9 F 119 18 128/77 98 11/16/16 11:34 11/16/16 14:07 11/16/16 11:34 11/16/16 11:34 11/16/16 11:34 Internal Medicine: Result - Labs CBC & Chem 7: 11/16/16 04:00 11/16/16 05:45 Labs: Short CBC 11/16/16 Range/Units 04:00 WBC 2.1 L (4.3-11.1) K/mcL Hgb 9.6 L (11.5-15.4) g/dL Hct 28.5 L (35.3-44.9) % Plt Count 113 L (140-400) K/mcL Neutrophils # 1.7 (1.6-8.9) K/mcL BMP 11/16/16 05:45 Sodium 125 L Potassium 3.5 Chloride 96 L Carbon Dioxide 22 BUN 5 L Creatinine 0.59 Glucose 90 Calcium 6.9 L - ABG Interpretation ABG results: ABG ABG pH 7.43 pH Units (7.32-7.45) 11/13/16 23:35 ABG pCO2 32 mmHg (35-45) L 11/13/16 23:35 ABG pO2 80 mmHg (85-104) L 11/13/16 23:35 ABG O2 Saturation 96 % (95-98) 11/13/16 23:35 - Impressions Impressions Abdomen CT 11/16/16 07:31 IMPRESSION: 1. Increased fat stranding adjacent to both kidneys as well as urothelial thickening, which is nonspecific but could be seen with pyelonephritis. Evaluation for pyelonephritis and renal abscess is limited by lack of intravenous contrast. 2. Small to moderate bilateral pleural effusions. 3. Mild diverticulosis. D/ / 11/16/2016 08:51:45 Spike Greer MD / Kacey Carpenter Interpreting Provider: Spike Greer MD Abdomen/Pelvis CT 11/16/16 11:10 IMPRESSION: 1. No evidence of renal abscess. 2. Findings suggest bilateral pyelonephritis, slightly more prominent on the left where areas of mildly decreased parenchymal perfusion are seen. 3. Mild right-sided hydronephrosis and hydroureter, extending to the level of the iliac vessels. This is new since 11/04/2016, and more prominent than on the noncontrast evaluation from earlier same day. No obstructing lesion or stone is seen. 4. Unchanged mild retroperitoneal lymphadenopathy, which may be reactive. 5. Stable small to moderate bilateral pleural effusions. D/ / 11/16/2016 13:09:24 Spike Greer MD / amelie Interpreting Provider: Spike Greer MD - Attending Attestation I examined this patient and my medical decision-making was reviewed with the [employer] LPN/PA/Advanced Practice Nurse/Resident Physician. I agree with the documented findings, disposition and treatment plan as described except to the extent set forth below. 71 Y/O F , seen independently at bedside She has a PMH of breast CA s/p therapy, CLL on chemotherapy, tubular adenoma per most recent colonoscopy esophagitis, chronic pancytopenia due to cancer She is admitted and being managed for Sepsis secondary to Suspected Pneumonia, UTI Her last febrile episode was yesterday in the evening, temperature 100.4 She seen at bedside this morning no new complaints Physical exam VSS, not in distress, speaks full sentencs, HR is RRR, no edema , abdomen is benign Blood cultures, urine culture preliminary no growth. Leukpenia is worsening, chem is stable A/P: *Sepsis: Fever is improving, but she continues to spike low grade fever, Abd/ Pelvis CT done with contrast did not show a renal abscess but does show bilateral pyelonephritis, will Continue Zosyn for now, if patient spikes fever again, she may need a GRULLON-CT scan as well as repeat cultues *Afib with RVR-Continue Cardizem po, increase to 240mg, poor candidate for anticoagulation due to thrombocytopenia, monitor HR *UTI: Continue antibiotics as above *Hyponatremia; corrected slowly, give 500cc saline, bolus, monitor closely. *Pancytopenia-Chronic, stable *Breast CA/CLL: Chronic, consult oncology, per patient and family, she is supposed to be receiving chemo this week, I have explained this is not feasible giving ongoing sepsis Rest of details as in resident's documentation
[2016-11-16] MEDS ORDERED: 0.9 % Sodium Chloride 500 ML IVC ONE (14:10)
[2016-11-16] MEDS: Acetaminophen 325 MG TABLET PO PRN (15:37)
[2016-11-16] MEDS: clonazePAM 1 MG TABLET PO SCH (19:53)
[2016-11-17 04:57] LABS: Basophils % 0.6 %; Immature Granulocytes % 0.6 % (0-4)
[2016-11-17 04:58] LABS: Eosinophils # 0.1 K/mcL (0.0-0.6); Eosinophils % 3.2 %; Hematocrit 28.8 % (35.3-44.9); Hemoglobin 9.7 g/dL (11.5-15.4); Lymphocytes # 0.1 K/mcL (0.6-4.6); Lymphocytes % 5.2 %; Mean Corpuscular HGB Conc 33.7 g/dL (31.6-35.5); Mean Corpuscular Hemoglobin 28.2 pg (28.0-33.3); Mean Corpuscular Volume 83.7 fL (83.0-100.0); Mean Platelet Volume 10.4 fL (9.4-12.4); Monocytes # 0.2 K/mcL (0.0-1.3); Monocytes % 14.8 %; Neutrophils # 1.2 K/mcL (1.6-8.9); Platelet Count 116 K/mcL (140-400); Red Blood Count 3.44 M/mcL (3.82-4.97); Red Cell Distribution Width 14.4 % (11.5-14.5); Segmented Neutrophils % 75.6 %
[2016-11-17 05:14] LABS: Platelet Estimate Decreased (Normal)
[2016-11-17 05:36] LABS: BUN/Creatinine Ratio 7 (6-26); Blood Urea Nitrogen 4 mg/dL (7-20); Calcium 7.3 mg/dL (8.6-10.8); Carbon Dioxide 23 mEq/L (19-29); Chloride 93 mEq/L (98-109); Glucose 95 mg/dL (70-99); Osmolality,Calculated 253 (280-300); Potassium 3.3 mEq/L (3.5-4.5); Sodium 123 mEq/L (136-145); eGFR For African Americans > 60 (> 60); eGFR For Non-African Americans > 60 (> 60)
[2016-11-17] MEDS: Piperacillin/Tazobactam 3.375 GM in D5% in Water (Mini-Bag+) 100 ML IVPB SCH ×3 (05:48→19:57)
[2016-11-17 06:58] LABS: Magnesium 1.3 mg/dL (1.6-2.6)
[2016-11-17] MEDS: Diltiazem CD (24hr) 240 MG CAPSULE PO SCH (08:05)
[2016-11-17] MEDS: Magnesium Sulfate 2 GM in D5% in Water 100 ML IVPB SCH ×2 (10:10→11:14)
[2016-11-17] MEDS: Ibuprofen 600 MG TABLET PO PRN (16:16)
--- NOTE | 2016-11-17 17:24 | Urology - Consult Note ---
Date of Encounter: 11/17/16 Time of Encounter: 17:22 - Assessment and Plan (1) Urinary retention Current Visit: Yes Status: Acute Assessment and plan: After I saw the patient a bladder scan was done which revealed a large volume of urine in the bladder. Catheter was used. We will keep this catheter in place at this time. (2) UTI (urinary tract infection) Current Visit: Yes Status: Acute Qualifiers: Urinary tract infection type: acute cystitis Hematuria presence: without hematuria Qualified Code(s): N30.00 - Acute cystitis without hematuria (3) Hydronephrosis Current Visit: Yes Status: Acute Assessment and plan: I believe the patient's hydronephrosis is secondary to incomplete bladder emptying. We will keep the Pickett catheter in place and repeat renal ultrasound or CT scan in 1 week. Qualifiers: Hydronephrosis type: other Qualified Code(s): N13.39 - Other hydronephrosis Urology CN:HPI Consult date: 11/17/16 Reason for consult Urology: Hydronephrosis Requesting physician: Alta Strong History of present illness: Morenita is a 71-year-old female with history of CLL currently admitted for possible urinary tract infection. The patient was found on CT scan to have some right-sided hydronephrosis but her bladder was also markedly distended. Patient states that she has been having urinary frequency. Her serum creatinine is normal. Past Med Surg Social Fam HX - Past Medical History Medical history: cancer, hyperlipidemia, hypertension, RA, thyroid disease Psychiatric history: no psych history - Past Surgical History Surgical History: cancer surgery - Social History Smoking Status: Never smoker Smokeless Tobacco Status: No Alcohol use: rarely Drug use: none Medications and Allergies ClonazePAM [Klonopin] 1 mg PO DAILY 06/13/15 [History] Ibuprofen [Motrin] 200 mg PO Q4HR PRN 06/13/15 [History] Lisinopril/Hydrochlorothiazide [Zestoretic 10-12.5 mg Tablet] 1 tab PO DAILY [History] Oxymetolazine HCl [Afrin] 2 spray NS HS 06/13/15 [History] Pravastatin Sodium [Pravachol] 80 mg PO DAILY 06/13/15 [History] Levothyroxine [Synthroid] 100 mcg PO 0630 02/06/16 [History] Denosumab [Prolia (For Outpatient Infusion)] 60 mg SQ [id number] 03/04/16 [History ] Gabapentin [Neurontin] 100 mg PO BID #60 capsule 05/19/16 [Rx] Magnesium Oxide [Magnesium] 400 mg PO DAILY PRN 05/19/16 [History] LORazepam [Ativan] 1 mg PO Q6H PRN #90 tablet 09/02/16 [Rx] Lidocaine/Prilocaine CREAM [Emla] 5 gm TP PRN PRN #1 tube 09/02/16 [Rx] Magic Mouthwash [Magic Mouthwash BLM] 10 ml PO QID PRN #240 ml 09/02/16 [Rx] Ondansetron [Zofran] 8 mg PO Q8HR PRN #90 tablet 09/02/16 [Rx] Prochlorperazine Maleate [Compazine] 10 mg PO Q6HR PRN #90 tablet 09/02/16 [Rx] Omeprazole [PriLOSEC] 20 mg PO DAILY #90 cap 09/03/16 [Rx] Oxycodone HCl/Acetaminophen [Percocet 5-325 mg Tablet] 1 each PO Q6H PRN #30 tablet 09/10/16 [Rx] Amitriptyline [Elavil] 50 mg PO HS #30 tablet 09/14/16 [Rx] Calamine/Zinc Oxide [Calamine Lotion] 240 ml TP PRN PRN #1 lotion 10/23/16 [Rx] MethylPREDNISolone [MethylPREDNISolone Dose Pack] 4 mg PO AD #21 tab 10/23/16 [ Rx] Ciprofloxacin HCl [Cipro] 250 mg PO BID #14 tablet 11/10/16 [Rx] Melatonin [Melatin] 1 cap PO Q6H PRN 11/12/16 [History] Allergies No Known Allergies Allergy (Verified 11/12/16 13:35) Review of Systems - Constitutional no chills - EENT Nose, mouth and throat: no dizziness - Cardiovascular no chest pain - Respiratory no cough - Gastrointestinal abdominal pain - Musculoskeletal no back pain - Integumentary no erythema Exam Initial Vital Signs Temp Pulse Resp BP Pulse Ox 103 F H 120 18 142/79 100 11/12/16 10:09 11/12/16 10:11/12/16 10:11/12/16 10:11/12/16 10:09 - General physical appearance Present: well developed - ENT Present: normal nares - Neck Present: no masses - Respiratory Present: normal respiratory effort - Cardiovascular Cardiovascular exam IM: RRR - Abdomen Abdomen: Present: soft (Tender to palpation and bladder area) Urology Results - Labs 11/17/16 04:48 11/17/16 04:48 Abnormal lab results WBC 1.6 K/mcL (4.3-11.1) L 11/17/16 04:48 RBC 3.44 M/mcL (3.82-4.97) L 11/17/16 04:48 Hgb 9.7 g/dL (11.5-15.4) L 11/17/16 04:48 Hct 28.8 % (35.3-44.9) L 11/17/16 04:48 Plt Count 116 K/mcL (140-400) L 11/17/16 04:48 Neutrophils # 1.2 K/mcL (1.6-8.9) L 11/17/16 04:48 Lymphocytes # 0.1 K/mcL (0.6-4.6) L 11/17/16 04:48 Reactive Lymphocytes Present (Not Present) A 11/16/16 04:00 Platelet Estimate Decreased (Normal) L 11/17/16 04:48 Anisocytosis 1+ (Not Present) A 11/15/16 04:15 ABG pCO2 32 mmHg (35-45) L 11/13/16 23:35 ABG pO2 80 mmHg (85-104) L 11/13/16 23:35 ABG Base Excess -2.6 mEq/L (-2.0 to 3.0) L 11/13/16 23:35 Sodium 123 mEq/L (136-145) L 11/17/16 04:48 Potassium 3.3 mEq/L (3.5-4.5) L 11/17/16 04:48 Chloride 93 mEq/L (98-109) L 11/17/16 04:48 BUN 4 mg/dL (7-20) L 11/17/16 04:48 Creatinine 0.55 mg/dL (0.57-1.11) L 11/17/16 04:48 POC Glucose 100 (58-89) H 11/13/16 23:28 Calculated Osmolality 253 (280-300) L 11/17/16 04:48 Calcium 7.3 mg/dL (8.6-10.8) L 11/17/16 04:48 Magnesium 1.3 mg/dL (1.6-2.6) L 11/17/16 04:48 Serum Total Protein 5.4 g/dL (6.0-8.3) L 11/12/16 11:13 Albumin 2.6 g/dL (3.5-5.0) L 11/12/16 11:13 Albumin/Globulin Ratio 0.9 (1.1-2.2) L 11/12/16 11:13 Urine Clarity Cloudy (Clear) A 11/12/16 13:48 Ur Leukocyte Esterase Trace (Negative) H 11/12/16 13:48 Ur Squamous Epith Cells Many per lpf (None-Few) H 11/12/16 13:48 Ur Culture Indicated? YES (NO) A 11/12/16 13:48 Urine Osmolality 266 mOsm/kg (300-1090) L 11/17/16 12:33 Diabetes panel 11/17/16 Range/Units 04:48 Sodium 123 L (136-145) mEq/L Potassium 3.3 L (3.5-4.5) mEq/L Chloride 93 L (98-109) mEq/L Carbon Dioxide 23 (19-29) mEq/L BUN 4 L (7-20) mg/dL Creatinine 0.55 L (0.57-1.11) mg/dL Glucose 95 (70-99) mg/dL Calcium 7.3 L (8.6-10.8) mg/dL Calcium panel 11/17/16 Range/Units 04:48 Calcium 7.3 L (8.6-10.8) mg/dL Pituitary panel 11/17/16 Range/Units 04:48 Sodium 123 L (136-145) mEq/L Potassium 3.3 L (3.5-4.5) mEq/L Chloride 93 L (98-109) mEq/L Carbon Dioxide 23 (19-29) mEq/L BUN 4 L (7-20) mg/dL Creatinine 0.55 L (0.57-1.11) mg/dL Glucose 95 (70-99) mg/dL Calcium 7.3 L (8.6-10.8) mg/dL Adrenal panel 11/17/16 Range/Units 04:48 Sodium 123 L (136-145) mEq/L Potassium 3.3 L (3.5-4.5) mEq/L Chloride 93 L (98-109) mEq/L Carbon Dioxide 23 (19-29) mEq/L BUN 4 L (7-20) mg/dL Creatinine 0.55 L (0.57-1.11) mg/dL Glucose 95 (70-99) mg/dL Calcium 7.3 L (8.6-10.8) mg/dL All other labs normal. - Imaging CT scan - abdomen: image reviewed CT scan - pelvis: image reviewed Consult Discharge Plan - Plan Referrals: NO,PCP [Non-Partnered Physician] - Flaquito Church, DO [Primary Care Provider] -
--- NOTE | 2016-11-17 19:08 | Internal Med Progress Note ---
Date of Encounter: 11/17/16 Time of Encounter: 08:17 - Assessment and plan (1) CLL (chronic lymphocytic leukemia) Current Visit: No Status: Chronic (2) UTI (urinary tract infection) Current Visit: Yes Status: Acute Qualifiers: Urinary tract infection type: acute cystitis Hematuria presence: without hematuria Qualified Code(s): N30.00 - Acute cystitis without hematuria (3) Neutropenic fever Current Visit: Yes Status: Acute (4) Pancytopenia Current Visit: Yes Status: Chronic (5) DVT prophylaxis Current Visit: Yes Status: Acute (6) Hyponatremia Current Visit: Yes Status: Acute (7) Atrial fibrillation Current Visit: Yes Status: Acute Qualifiers: Atrial fibrillation type: paroxysmal Qualified Code(s): I48.0 - Paroxysmal atrial fibrillation (8) Urinary retention Current Visit: Yes Status: Acute (9) Hydronephrosis Current Visit: Yes Status: Acute Assessment and plan: Sepsis secondary to liekly UTI: On broad spectrum IV abx coverage. CT abdomena dn Pelvis s/o pyelonephritis. Concern for hydroneprhosis on imaging. Urology consulted. Pyelonephritis: as above, On broad spetcrum coverage. WIll deescalate absed on c /s Atrial fibrilaltion:with a high CHADSVASC score, not on Ac as plt remains very low and pt on chemotherapy for CLL. To be dsicussed with hemonc as outpt prior to starting on anticoagulation. Rate control with cardizem Hyponatremia: ? componenet of SIADH. Monitor sodium. Pancytopenia: Related to chemotherapy for CLL. Monitor. WBC remains low at 1.5. Hypokalemia: replete as needed. DVT Prophylaxis: Sub Q heparin Qualifiers: Hydronephrosis type: other Qualified Code(s): N13.39 - Other hydronephrosis - Time Spent With Patient 25 - 35 minutes - Constitutional Vitals: Temp Pulse Resp BP Pulse Ox 98.8 F 93 16 130/84 98 11/17/16 15:26 11/17/16 17:08 11/17/16 15:26 11/17/16 15:26 11/17/16 15:26 General appearance: Present: cooperative, mild distress, A&O X 3, answers questions appropriately Internal Medicine: Result - Labs CBC & Chem 7: 11/17/16 04:48 11/17/16 04:48 Labs: Short CBC 11/17/16 Range/Units 04:48 WBC 1.6 L (4.3-11.1) K/mcL Hgb 9.7 L (11.5-15.4) g/dL Hct 28.8 L (35.3-44.9) % Plt Count 116 L (140-400) K/mcL Neutrophils # 1.2 L (1.6-8.9) K/mcL BMP 11/17/16 04:48 Sodium 123 L Potassium 3.3 L Chloride 93 L Carbon Dioxide 23 BUN 4 L Creatinine 0.55 L Glucose 95 Calcium 7.3 L - ABG Interpretation ABG results: ABG ABG pH 7.43 pH Units (7.32-7.45) 11/13/16 23:35 ABG pCO2 32 mmHg (35-45) L 11/13/16 23:35 ABG pO2 80 mmHg (85-104) L 11/13/16 23:35 ABG O2 Saturation 96 % (95-98) 11/13/16 23:35 - VTE Documentation of Mechanical Device: Intermittent pneumatic compression device Consult Discharge Plan - Plan Referrals: NO,PCP [Non-Partnered Physician] - Flaquito Church DO [Primary Care Provider] -
[2016-11-17] MEDS: clonazePAM 1 MG TABLET PO SCH (20:03)
[2016-11-18] MEDS: Piperacillin/Tazobactam 3.375 GM in D5% in Water (Mini-Bag+) 100 ML IVPB SCH ×2 (04:08→12:50)
[2016-11-18 07:02] VITALS: BP 140/79
[2016-11-18] MEDS: Diltiazem CD (24hr) 240 MG CAPSULE PO SCH (07:44)
[2016-11-18] MEDS: *HR* OxyCODONE/APAP 5/325 TABLET PO PRN (07:44)
[2016-11-18 08:39] LABS: Hematocrit 29.1 % (35.3-44.9); Immature Granulocytes % 3.8 % (0-4); Lymphocytes % 2.9 %; Mean Corpuscular HGB Conc 34.4 g/dL (31.6-35.5); Mean Corpuscular Hemoglobin 28.7 pg (28.0-33.3); Mean Corpuscular Volume 83.4 fL (83.0-100.0); Mean Platelet Volume 10.4 fL (9.4-12.4); Monocytes # 0.2 K/mcL (0.0-1.3); Monocytes % 21.9 %; Neutrophils # 0.8 K/mcL (1.6-8.9); Platelet Count 128 K/mcL (140-400); Red Blood Count 3.49 M/mcL (3.82-4.97); Red Cell Distribution Width 14.1 % (11.5-14.5); Segmented Neutrophils % 69.4 %
[2016-11-18 08:51] LABS: BUN/Creatinine Ratio 10 (6-26); Blood Urea Nitrogen 6 mg/dL (7-20); Calcium 7.1 mg/dL (8.6-10.8); Carbon Dioxide 28 mEq/L (19-29); Chloride 90 mEq/L (98-109); Glucose 127 mg/dL (70-99); Osmolality,Calculated 255 (280-300); Potassium 3.4 mEq/L (3.5-4.5); Sodium 123 mEq/L (136-145); eGFR For African Americans > 60 (> 60); eGFR For Non-African Americans > 60 (> 60)
[2016-11-18 09:19] LABS: Platelet Estimate Slight Decrease (Normal)
--- NOTE | 2016-11-18 11:42 | Physician Discharge Referral ---
Home Health/Hosp Referral Info Transfer to: Home Health Provider in Charge Post Discharge: PCP - Diagnosis (1) CLL (chronic lymphocytic leukemia) Priority: Secondary Status: Chronic (2) UTI (urinary tract infection) Priority: Primary Status: Acute (3) Neutropenic fever Priority: Primary Status: Acute (4) Pancytopenia Priority: Primary Status: Chronic (5) DVT prophylaxis Priority: Secondary Status: Acute (6) Hyponatremia Priority: Secondary Status: Acute (7) Atrial fibrillation Status: Acute (8) Urinary retention Priority: Primary Status: Acute (9) Hydronephrosis Priority: Primary Status: Acute - Respiratory Orders Smoking Cessation: Smoking cessation has been advised. For more information, call the [place] Tobacco Quit Line at 6-033-UCYD-NOW. - Diet/Nutrition Diet/Nutrition Orders: Regular - Activity Activity Orders: Up ad quyen - Services Needed Following services are medically necessary services: Nursing (Labs to be drawn on 11/19 to check for sodium levels.) - Transfer Medications Prescriptions: ClonazePAM [Klonopin] 1 mg PO HS #10 tablet Levofloxacin [Levaquin] 500 mg PO DAILY #10 tablet Omeprazole [PriLOSEC] 20 mg PO DAILY 10 Days Home Medications: ClonazePAM [Klonopin] 1 mg PO DAILY 06/13/15 [History] Lisinopril/Hydrochlorothiazide [Zestoretic 10-12.5 mg Tablet] 1 tab PO DAILY [History] Oxymetolazine HCl [Afrin] 2 spray NS HS 06/13/15 [History] Pravastatin Sodium [Pravachol] 80 mg PO DAILY 06/13/15 [History] Levothyroxine [Synthroid] 100 mcg PO 0630 02/06/16 [History] Denosumab [Prolia (For Outpatient Infusion)] 60 mg SQ [id number] 03/04/16 [History ] Gabapentin [Neurontin] 100 mg PO BID #60 capsule 05/19/16 [Rx] Magnesium Oxide [Magnesium] 400 mg PO DAILY PRN 05/19/16 [History] Lidocaine/Prilocaine CREAM [Emla] 5 gm TP PRN PRN #1 tube 09/02/16 [Rx] Magic Mouthwash [Magic Mouthwash BLM] 10 ml PO QID PRN #240 ml 09/02/16 [Rx] Prochlorperazine Maleate [Compazine] 10 mg PO Q6HR PRN #90 tablet 09/02/16 [Rx] Omeprazole [PriLOSEC] 20 mg PO DAILY #90 cap 09/03/16 [Rx] Oxycodone HCl/Acetaminophen [Percocet 5-325 mg Tablet] 1 each PO Q6H PRN #30 tablet 09/10/16 [Rx] Amitriptyline [Elavil] 50 mg PO HS #30 tablet 09/14/16 [Rx] Calamine/Zinc Oxide [Calamine Lotion] 240 ml TP PRN PRN #1 lotion 10/23/16 [Rx] MethylPREDNISolone [MethylPREDNISolone Dose Pack] 4 mg PO AD #21 tab 10/23/16 [ Rx] Melatonin [Melatin] 1 cap PO Q6H PRN 11/12/16 [History] Acetaminophen [Tylenol] 650 mg PO Q6HR PRN #0 tablet 11/18/16 [Rx] Amitriptyline [Elavil] 50 mg PO HS tablet 11/18/16 [Rx] ClonazePAM [Klonopin] 1 mg PO HS #10 tablet 11/18/16 [Rx] Diltiazem CD (24hr) [Cardizem CD] 240 mg PO DAILY cap.er.24h 11/18/16 [Rx] Levofloxacin [Levaquin] 500 mg PO DAILY #10 tablet 11/18/16 [Rx] Levothyroxine [Synthroid] 100 mcg PO 0630 tablet 11/18/16 [Rx] Omeprazole [PriLOSEC] 20 mg PO DAILY 10 Days 11/18/16 [Rx] Simvastatin [Zocor] 40 mg PO HS tablet 11/18/16 [Rx] Allergies/Adverse Reactions: Allergies No Known Allergies Allergy (Verified 11/12/16 13:35) Certification: Further, I certify that my clinical findings support that this patient is homebound (i.e. absences from home require considerable and taxing effort and are for medical reasons or denominational services or infrequently or short duration when for other reasons) because: Homebound Reason: Patient requires assistance of a person or device to safely leave home Attestation: My signature below is to certify that this patient is under my care and that I, or nurse practitioner, or a physician's commercial assistant working with me, has a face-to -face encounter with this patient.
--- NOTE | 2016-11-18 12:51 | Urology Progress Note ---
Date of Encounter: 11/18/16 Time of Encounter: 12:50 - Assessment and Plan (1) Urinary retention Current Visit: Yes Status: Acute Assessment and plan: conitnue catheter. patient has scheduled f/u next wednesday for voiding trial. (2) UTI (urinary tract infection) Current Visit: Yes Status: Acute Qualifiers: Urinary tract infection type: acute cystitis Hematuria presence: without hematuria Qualified Code(s): N30.00 - Acute cystitis without hematuria (3) Hydronephrosis Current Visit: Yes Status: Acute Assessment and plan: will get renal us after patient passes voiding trial. Qualifiers: Hydronephrosis type: other Qualified Code(s): N13.39 - Other hydronephrosis Progress Note Narrative: Patient seen. doing well. catheter placed yesterday for large pvr. tolerating well. Objective Initial Vital Signs Temp Pulse Resp BP Pulse Ox 103 F H 120 18 142/79 100 11/12/16 10:09 11/12/16 10:09 11/12/16 10:09 11/12/16 10:11/12/16 10:09 - General physical appearance Present: well developed - Abdomen Present: soft - Genitourinary Present: other (cath in place) - Labs 11/18/16 08:22 11/18/16 08:22 Diabetes panel 11/18/16 Range/Units 08:22 Sodium 123 L (136-145) mEq/L Potassium 3.4 L (3.5-4.5) mEq/L Chloride 90 L (98-109) mEq/L Carbon Dioxide 28 (19-29) mEq/L BUN 6 L (7-20) mg/dL Creatinine 0.58 (0.57-1.11) mg/dL Glucose 127 H (70-99) mg/dL Calcium 7.1 L (8.6-10.8) mg/dL Calcium panel 11/18/16 Range/Units 08:22 Calcium 7.1 L (8.6-10.8) mg/dL Pituitary panel 11/18/16 Range/Units 08:22 Sodium 123 L (136-145) mEq/L Potassium 3.4 L (3.5-4.5) mEq/L Chloride 90 L (98-109) mEq/L Carbon Dioxide 28 (19-29) mEq/L BUN 6 L (7-20) mg/dL Creatinine 0.58 (0.57-1.11) mg/dL Glucose 127 H (70-99) mg/dL Calcium 7.1 L (8.6-10.8) mg/dL Adrenal panel 11/18/16 Range/Units 08:22 Sodium 123 L (136-145) mEq/L Potassium 3.4 L (3.5-4.5) mEq/L Chloride 90 L (98-109) mEq/L Carbon Dioxide 28 (19-29) mEq/L BUN 6 L (7-20) mg/dL Creatinine 0.58 (0.57-1.11) mg/dL Glucose 127 H (70-99) mg/dL Calcium 7.1 L (8.6-10.8) mg/dL - VTE Documentation of Mechanical Device: Intermittent pneumatic compression device Consult Discharge Plan - Plan Instructions: Urinary Tract Infection in Women (DC), Pickett Catheter Placement and Care (DC) Referrals: Raul Espinal MD [Partnered Physician] - 11/26/16 3:00 pm Flaquito Church DO [Primary Care Provider] - 11/25/16 12:30 pm Rajat Toscano DO [Partnered Physician] - 12/03/16 1:15 pm
--- NOTE | 2016-11-18 13:34 | Discharge Summary ---
Date of Encounter: 11/18/16 Time of Encounter: 09:45 - Discharge Diagnosis (1) CLL (chronic lymphocytic leukemia) Priority: Secondary Status: Chronic (2) UTI (urinary tract infection) Priority: Primary Status: Acute Qualifiers: Urinary tract infection type: acute cystitis Hematuria presence: without hematuria Qualified Code(s): N30.00 - Acute cystitis without hematuria (3) Neutropenic fever Priority: Primary Status: Acute (4) Pancytopenia Priority: Secondary Status: Chronic (5) DVT prophylaxis Priority: Secondary Status: Acute (6) Hyponatremia Priority: Secondary Status: Acute (7) Atrial fibrillation Priority: Secondary Status: Acute Qualifiers: Atrial fibrillation type: paroxysmal Qualified Code(s): I48.0 - Paroxysmal atrial fibrillation (8) Urinary retention Priority: Primary Status: Acute (9) Hydronephrosis Priority: Primary Status: Acute Qualifiers: Hydronephrosis type: other Qualified Code(s): N13.39 - Other hydronephrosis - Discharge Medications Prescriptions: ClonazePAM [Klonopin] 1 mg PO HS #10 tablet Diltiazem CD (24hr) [Cardizem CD] 240 mg PO DAILY #30 cap.er.24h Levofloxacin [Levaquin] 500 mg PO DAILY #10 tablet Omeprazole [PriLOSEC] 20 mg PO DAILY 10 Days Home Medications: ClonazePAM [Klonopin] 1 mg PO DAILY 06/13/15 [History] Lisinopril/Hydrochlorothiazide [Zestoretic 10-12.5 mg Tablet] 1 tab PO DAILY [History] Oxymetolazine HCl [Afrin] 2 spray NS HS 06/13/15 [History] Pravastatin Sodium [Pravachol] 80 mg PO DAILY 06/13/15 [History] Levothyroxine [Synthroid] 100 mcg PO 0630 02/06/16 [History] Denosumab [Prolia (For Outpatient Infusion)] 60 mg SQ [id number] 03/04/16 [History ] Gabapentin [Neurontin] 100 mg PO BID #60 capsule 05/19/16 [Rx] Magnesium Oxide [Magnesium] 400 mg PO DAILY PRN 05/19/16 [History] Lidocaine/Prilocaine CREAM [Emla] 5 gm TP PRN PRN #1 tube 09/02/16 [Rx] Magic Mouthwash [Magic Mouthwash BLM] 10 ml PO QID PRN #240 ml 09/02/16 [Rx] Prochlorperazine Maleate [Compazine] 10 mg PO Q6HR PRN #90 tablet 09/02/16 [Rx] Omeprazole [PriLOSEC] 20 mg PO DAILY #90 cap 09/03/16 [Rx] Oxycodone HCl/Acetaminophen [Percocet 5-325 mg Tablet] 1 each PO Q6H PRN #30 tablet 09/10/16 [Rx] Amitriptyline [Elavil] 50 mg PO HS #30 tablet 09/14/16 [Rx] Calamine/Zinc Oxide [Calamine Lotion] 240 ml TP PRN PRN #1 lotion 10/23/16 [Rx] MethylPREDNISolone [MethylPREDNISolone Dose Pack] 4 mg PO AD #21 tab 10/23/16 [ Rx] Melatonin [Melatin] 1 cap PO Q6H PRN 11/12/16 [History] Acetaminophen [Tylenol] 650 mg PO Q6HR PRN #0 tablet 11/18/16 [Rx] Amitriptyline [Elavil] 50 mg PO HS tablet 11/18/16 [Rx] ClonazePAM [Klonopin] 1 mg PO HS #10 tablet 11/18/16 [Rx] Diltiazem CD (24hr) [Cardizem CD] 240 mg PO DAILY cap.er.24h 11/18/16 [Rx] Diltiazem CD (24hr) [Cardizem CD] 240 mg PO DAILY #30 cap.er.24h 11/18/16 [Rx] Levofloxacin [Levaquin] 500 mg PO DAILY #10 tablet 11/18/16 [Rx] Levothyroxine [Synthroid] 100 mcg PO 0630 tablet 11/18/16 [Rx] Omeprazole [PriLOSEC] 20 mg PO DAILY 10 Days 11/18/16 [Rx] Allergies/Adverse Reactions: Allergies No Known Allergies Allergy (Verified 11/21/16 11:12) Procedures/tests Complete & Pending: Procedures Performed prior 72 hours Category Date Time Status CT abd pelvis w iv no oral [CT] Routine Cat Scan 11/16/16 11:[address] abdomen wo no iv no oral [CT] Stat Cat Scan 11/16/16 07:31 Draft Date of admission: 11/12/16 14:22 Primary care physician: Flaquito Church DO Consults: 11/13/16 17:06 Consult to Cardiology [CONS] Stat Comment: Consulting Provider: Cardiology Nguyen Reason for Consult: SVTs, not converting with adenosine , or manuevers, patient is hemodynamically stable and AAOX3, started on cardizem drip, please evaluate. Thank you. Call Completed: Yes 11/15/16 12:09 Consult to Occupational Therapy [CONS] Routine Comment: Evaluate, develop and implement POC Consult to Physical Therapy [CONS] Routine Comment: Evaluate, develop and implement POC 11/17/16 10:13 Consult to Urology [CONS] Routine Consulting Provider: Urology Nguyen Reason for Consult: right hydroneprhosis, hydroureter Call Completed: Yes Discharging clinician: Alta Strong - Patient Status Disposition: Home Health Service Condition: Fair Overall status at discharge: patient is progressing back to baseline - Ambulatory Orders Ambulatory Orders: CT abd pelvis wo iv oral only [CT] Time Frame: 1 Week, Facility: [facility], Location: Radiology - Discharge Instructions Instructions: Diltiazem (By mouth), Clonazepam (By mouth), Omeprazole (By mouth ), Levofloxacin (By mouth), Urinary Tract Infection in Women (DC), Miller Catheter Placement and Care (DC), Fluid Restriction (DC) Follow Up With: Raul Espinal MD [Partnered Physician] - 11/26/16 3:00 pm Flaquito Church DO [Primary Care Provider] - 11/25/16 12:30 pm Rajat Toscano DO [Partnered Physician] - 12/03/16 1:15 pm - Diet and Activity Activity: increase activity as tolerated Diet: advance to your usual diet Interval History: 71 y/o female with pmh of CLL, undergoing chemotherapy admitted to the hospital withhigh grade fever. Patientw as diagnosed to have UTI with CT abdomen concerning for pyelonephritis. Patient was treated with IV antibiotics with symptomatic improvement. Urine c/s from previous admission grew Klebsiella, she was dsicahrged home on PO antibiotics Levaquin based on sensitivity panel. Patient was seen by urology for hydropnephrosis. Bladder scan shows 1800 cc, thinks urinary retention is the cause of hydronephrosis. Has miller in for which she will f/u with urology in a week for voiding trial. Patient noted to be in Afib with RVR on admission in setting of sepsis. Was not started on anticoagulation as her counts were very low. Patient to follow with Hemonc and discuss regarding intiating anticoagulation. Patient continued to have low WBC counts during hospitlisation. Discussed with patient with her oncologist. Patient has an appointment with him in clinic tomorrow. Patient impotved clinically with current treatment Discussed with Oncologist who agrees to monitor the WBC count as outpatient. Patient improving, but not back to baseline and has mulriple ongoing active issues including UTI, hyponatremia, urinary retention. Recommended patient to remain in hspital for continued care. However pt is adamant to be dsicharged home and states that she will keep her f/u appointment with the oncologist and will come back to the hospital in case of any worsening symptoms. Hospital course: Ms. Fish is a 71 year old female - Time Spent with Patient Total time spent providing and/or coordinating discharge services: Greater than 30 minutes - Constitutional Vitals: Temp Pulse Resp BP Pulse Ox 99.6 F 96 18 140/79 94 L 11/18/16 10:57 11/18/16 10:57 11/18/16 10:57 11/18/16 10:57 11/18/16 10:57 General appearance: Present: cooperative, mild distress, A&O X 3, answers questions appropriately - VTE Documentation of Mechanical Device: Intermittent pneumatic compression device
== END 2016-11-18 15:12 | disposition home health service (06) | DRG 871 ==
LOC: EMEROO 10:04 → 2ANU 10:04 → SUATTDRO 14:22 → 2NNU 11-13 18:08
PROVIDERS: ADMIT Internal Medicine; ATTEND Internal Medicine

== ENCOUNTER 2017-03-19 18:26 | Observation (INO) ==
[2017-03-19] MEDS ORDERED: 0.9 % Sodium Chloride 1,000 ML IVC ONE (19:11)
[2017-03-19] MEDS ORDERED: Piperacillin/Tazobactam 4.5 GM in D5% in Water (Mini-Bag+) 100 ML IVPB ONE (19:14)
--- NOTE | 2017-03-19 19:27 | Emergency Department Note ---
Disposition Clinical Impression: CLL (chronic lymphocytic leukemia) UTI (urinary tract infection) Qualifiers: Urinary tract infection type: site unspecified Hematuria presence: without hematuria Qualified Code(s): N39.0 - Urinary tract infection, site not specified Neutropenia Qualifiers: Neutropenia type: unspecified Qualified Code(s): D70.9 - Neutropenia, unspecified Anemia Qualifiers: Anemia type: unspecified type Qualified Code(s): D64.9 - Anemia, unspecified Disposition: Admitted As Inpatient Condition: Fair Female Urogenital HPI - General Chief complaint: ED Urogenital-Female Stated complaint: UTI Time Seen by Provider: 03/19/17 18:35 Source: family Mode of arrival: ambulatory Limitations: no limitations, age Nursing Notes Reviewed: Yes Vital Signs Reviewed: Yes - History of Present Illness HPI Narrative: 71-year-old female with history of CLL not on active chemotherapy presents for evaluation of a urinary tract infection. Patient's last dose of chemotherapy was in September and October. Patient does have a history of urinary tract infections. She has had 2 courses of Bactrim within the past 2-3 weeks without symptom resolution. Patient had an outpatient urinalysis obtained which showed gram-negative rods. Patient does have a history of Pseudomonas requiring IV antibiotics. Patient states that she continues to have dysuria. Denies any fevers. No abdominal pain. No nausea or vomiting. Patient states that she also has a complicated medical history with CMV is on antibiotic vitals. She was instructed to go to the ER for IV antibiotics per her oncologist. Denies any chest pain or short of breath. Patient also has history of DVT and PE and is on Lovenox. - Related Data Home Medications Medication Instructions Recorded Confirmed Melatonin 5 mg PO HS PRN 12/18/16 03/19/17 Azithromycin [Zithromax] 600 mg PO MOTH 03/19/17 Enoxaparin [Lovenox] 70 mg SQ Q12HR 03/19/17 03/19/17 Ibuprofen [Motrin] 600 mg PO Q8H PRN 03/19/17 03/19/17 Lidocaine/Prilocaine CREAM [Emla] 1 appl TP AD PRN 03/19/17 03/19/17 Nystatin [Nystatin Suspension] 500,000 units PO QID 03/19/17 03/19/17 Oxymetazoline [Afrin] 1 spray NS BID PRN 03/19/17 03/19/17 Previous Rx's Medication Instructions Recorded Levothyroxine [Synthroid] 100 mcg PO 0630 tablet 11/18/16 Omeprazole [PriLOSEC] 20 mg PO DAILY 10 Days 11/18/16 Valganciclovir HCl [Valcyte] 900 mg PO BID #120 tablet 02/17/17 Gabapentin [Neurontin] 100 mg PO BID #60 capsule 03/17/17 Pravastatin Sodium [Pravachol] 80 mg PO HS #30 03/17/17 levETIRAcetam [Keppra Oral Soln] 1,000 mg PO BID #60 03/17/17 Allergies Allergy/AdvReac Type Severity Reaction Status Date / Time No Known Allergies Allergy Verified 03/17/17 10:53 All systems ED: reviewed and negative except as stated. Constitutional: Reports: as per HPI. Denies: fever Eyes: Reports: as per HPI ENT ED: Reports: as per HPI Cardiovascular: Reports: as per HPI. Denies: chest pain Respiratory: Reports: as per HPI. Denies: dyspnea Gastrointestinal: Reports: as per HPI. 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 Absent: respiratory distress - Cardiovascular Cardiovascular exam: Present: regular rate, normal rhythm - Abdominal Exam Abdominal exam: Present: soft, Non-Tender. Absent: distention, guarding, rebound - Extremities Exam Extremities exam: Present: normal inspection. Absent: pedal edema - Back Exam Back exam: Present: normal inspection. Absent: CVA tenderness (R), CVA tenderness (L) - Neurological Exam Neurological exam: Present: alert, oriented X3 - Skin Skin exam: Present: warm, dry, intact, normal color Course Course Narrative: Patient seen and examined. Patient is in no acute distress resting on stretcher. Patient's records review does show that she is grew Pseudomonas in the past which was sensitive to Zosyn. Patient's urine alternate day showed gram-negative rods sensitivities are pending. Given the patient's immunocompromised status the patient was started on IV antibiotics. Likely require admission. This was discussed with the family at bedside. Vital Signs Temperature 98.2 F 03/19/17 18:29 Pulse Rate 86 03/19/17 18:29 Respiratory Rate 18 03/19/17 18:29 Blood Pressure 114/80 03/19/17 18:29 O2 Sat by Pulse Oximetry 95 03/19/17 18:29 Temperature 98.2 F 03/19/17 18:29 Pulse Rate 99 03/19/17 20:46 Respiratory Rate 17 03/19/17 20:46 Blood Pressure 131/68 03/19/17 20:46 O2 Sat by Pulse Oximetry 99 03/19/17 20:46 Oxygen Delivery Oxygen Delivery Room Air Urogenital-Female - MDM Narrative Medical decision making narrative: 71-year-old female presents for evaluation of urinary symptoms. Patient is immunocompromised with CLL and neutropenic. Patient was sent in by her oncologist. Patient had outpatient UA which showed gram negative rods. Does have history of Pseudomonas was resistant to several antibiotics. Patient's cultures reviewed. Patient was placed on Zosyn which was sensitive to a previous culture. Patient's labs shows that she is chronically anemic. Patient 's resting comfortably at bedside. Patient received IV fluid hydration. Patient denied need for pain medicine. Patient's family at bedside are also with plan of care. - Lab Data Lab results reviewed: Yes I reviewed the patient's lab results. Result diagrams: 03/19/17 19:38 03/19/17 19:38 Lab Results 07/21/17 07/21/17 07/21/17 Range/Units 19:38 19:38 19:38 WBC 1.9 L (4.3-11.1) K/mcL RBC 3.20 L (3.82-4.97) M/mcL Hgb 8.9 L (11.5-15.4) g/dL Hct 27.9 L (35.3-44.9) % MCV 87.2 (83.0-100.0) fL MCH 27.8 L (28.0-33.3) pg MCHC 31.9 (31.6-35.5) g/dL RDW 15.0 H (11.5-14.5) % Plt Count 156 (140-400) K/mcL MPV 11.1 (9.4-12.4) fL Seg Neutrophils % 18.0 % Band Neutrophils % 2.0 (0-4) % Lymphocytes % 60.0 % Monocytes % 10.0 % Eosinophils % 2.0 % Basophils % 8.0 % Neutrophils # 0.4 L (1.6-8.9) K/mcL Lymphocytes # 1.1 (0.6-4.6) K/mcL Monocytes # 0.2 (0.0-1.3) K/mcL Eosinophils # 0.0 (0.0-0.6) K/mcL Basophils # 0.2 (0.0-0.2) K/mcL Reactive Lymphocytes Present A (Not Present) Platelet Estimate Normal (Normal) Sodium 136 (136-145) mEq/L Potassium 4.0 (3.5-4.5) mEq/L Chloride 105 (98-109) mEq/L Carbon Dioxide 28 (19-29) mEq/L BUN 8 (7-20) mg/dL Creatinine 0.55 L (0.57-1.11) mg/dL Est GFR ( Amer) > 60 (> 60) Est GFR (Non-Af Amer) > 60 (> 60) BUN/Creatinine Ratio 15 (6-26) Glucose 105 H (70-99) mg/dL Calculated Osmolality 281 (280-300) Lactic Acid 1.0 (0.5-2.2) mmol/L Calcium 8.9 (8.6-10.8) mg/dL Total Bilirubin 0.3 (0.2-1.2) mg/dL Direct Bilirubin 0.1 (0.0-0.5) mg/dL Indirect Bilirubin 0.2 (0.0-1.2) mg/dL AST 30 (5-34) Units/L ALT 29 (0-55) Units/L Alkaline Phosphatase 192 H (38-126) Units/L Serum Total Protein 5.6 L (6.0-8.3) g/dL Albumin 2.9 L (3.5-5.0) g/dL Globulin 2.7 (2.4-3.5) g/dL Albumin/Globulin Ratio 1.1 (1.1-2.2) Lipase 42 (8-78) Units/L Urine Color (Yellow) Urine Clarity (Clear) Urine pH (5.0-8.0) pH Units Ur Specific [place] (1.010-1.025) Urine Protein (Neg-Trace) mg/dL Urine Glucose (UA) (Normal) mg/dL Urine Ketones (Negative) mg/dL Urine Blood (Negative) Urine Nitrite (Negative) Urine Bilirubin (Negative) Urine Urobilinogen (Normal) mg/dL Ur Leukocyte Esterase (Negative) Urine Microscopic RBC (0-3) per hpf Urine Microscopic WBC (0-3) per hpf Ur Squamous Epith Cells (None-Few) per lpf Urine Bacteria (None-Few) per hpf Hyaline Casts (None-Few) per lpf Ur Culture Indicated? (NO) 03/19/17 Range/Units 20:30 WBC (4.3-11.1) K/mcL RBC (3.82-4.97) M/mcL Hgb (11.5-15.4) g/dL Hct (35.3-44.9) % MCV (83.0-100.0) fL MCH (28.0-33.3) pg MCHC (31.6-35.5) g/dL RDW (11.5-14.5) % Plt Count (140-400) K/mcL MPV (9.4-12.4) fL Seg Neutrophils % % Band Neutrophils % (0-4) % Lymphocytes % % Monocytes % % Eosinophils % % Basophils % % Neutrophils # (1.6-8.9) K/mcL Lymphocytes # (0.6-4.6) K/mcL Monocytes # (0.0-1.3) K/mcL Eosinophils # (0.0-0.6) K/mcL Basophils # (0.0-0.2) K/mcL Reactive Lymphocytes (Not Present) Platelet Estimate (Normal) Sodium (136-145) mEq/L Potassium (3.5-4.5) mEq/L Chloride (98-109) mEq/L Carbon Dioxide (19-29) mEq/L BUN (7-20) mg/dL Creatinine (0.57-1.11) mg/dL Est GFR ( Amer) (> 60) Est GFR (Non-Af Amer) (> 60) BUN/Creatinine Ratio (6-26) Glucose (70-99) mg/dL Calculated Osmolality (280-300) Lactic Acid (0.5-2.2) mmol/L Calcium (8.6-10.8) mg/dL Total Bilirubin (0.2-1.2) mg/dL Direct Bilirubin (0.0-0.5) mg/dL Indirect Bilirubin (0.0-1.2) mg/dL AST (5-34) Units/L ALT (0-55) Units/L Alkaline Phosphatase (38-126) Units/L Serum Total Protein (6.0-8.3) g/dL Albumin (3.5-5.0) g/dL Globulin (2.4-3.5) g/dL Albumin/Globulin Ratio (1.1-2.2) Lipase (8-78) Units/L Urine Color Dark Yellow (Yellow) Urine Clarity Cloudy A (Clear) Urine pH 7.0 (5.0-8.0) pH Units Ur Specific [place] 1.024 (1.010-1.025) Urine Protein Negative (Neg-Trace) mg/dL Urine Glucose (UA) Normal (Normal) mg/dL Urine Ketones Negative (Negative) mg/dL Urine Blood Negative (Negative) Urine Nitrite Positive A (Negative) Urine Bilirubin Negative (Negative) Urine Urobilinogen Normal (Normal) mg/dL Ur Leukocyte Esterase Large H (Negative) Urine Microscopic RBC 3-5 H (0-3) per hpf Urine Microscopic WBC TNTC H (0-3) per hpf Ur Squamous Epith Cells Many H (None-Few) per lpf Urine Bacteria Few (None-Few) per hpf Hyaline Casts None Seen (None-Few) per lpf Ur Culture Indicated? YES A (NO) S.B.A.R. - S.B.A.R. Situation: Demographics Background: Presenting Complaint Assessment: Vital Signs, Course and respsone to treatment Recommendation: Barrier(s) to disposition, Recommendation based on pending studies, treatments, or consults Ken Report Given to: Dr. Diaz Attestation Statement - Attestation Attestation: I, Huan Thompson MD, personally evaluated this patient and discussed their management with the resident physician. I reviewed the resident's note and agree with the documented findings, medical decision making, and plan of care. 71-year-old female with history of CLL presents with a complaint of dysuria. She has a history of recurrent urinary tract infections. She has been on 2 rounds of oral antibiotics without improvement. No fever. No nausea or vomiting. No generalized abdominal pain. On examination patient is a well-developed well-nourished elderly female in no acute distress. She is alert and oriented 3. There is no cyanosis or diaphoresis. Breath sounds are clear and equal bilaterally. Regular rate and rhythm. Abdomen is soft and nontender with normal bowel sounds. Labs reviewed. The hospitalist, Dr. Diaz, was consulted and accepted admission of the patient.
[2017-03-19 19:45] LABS: Hemoglobin 8.9 g/dL (11.5-15.4)
[2017-03-19 19:46] LABS: Hematocrit 27.9 % (35.3-44.9); Mean Corpuscular HGB Conc 31.9 g/dL (31.6-35.5); Mean Corpuscular Hemoglobin 27.8 pg (28.0-33.3); Mean Corpuscular Volume 87.2 fL (83.0-100.0); Mean Platelet Volume 11.1 fL (9.4-12.4); Monocytes # 0.2 K/mcL (0.0-1.3); Platelet Count 156 K/mcL (140-400)
[2017-03-19 20:01] LABS: Alanine Aminotransferase 29 Units/L (0-55); Albumin 2.9 g/dL (3.5-5.0); Albumin/Globulin Ratio 1.1 (1.1-2.2); Alkaline Phosphatase 192 Units/L (38-126); Aspartate Amino Transferase 30 Units/L (5-34); BUN/Creatinine Ratio 15 (6-26); Bilirubin,Direct 0.1 mg/dL (0.0-0.5); Bilirubin,Indirect 0.2 mg/dL (0.0-1.2); Bilirubin,Total 0.3 mg/dL (0.2-1.2); Blood Urea Nitrogen 8 mg/dL (7-20); Calcium 8.9 mg/dL (8.6-10.8); Carbon Dioxide 28 mEq/L (19-29); Chloride 105 mEq/L (98-109); Globulin 2.7 g/dL (2.4-3.5); Glucose 105 mg/dL (70-99); Lipase 42 Units/L (8-78); Osmolality,Calculated 281 (280-300); Sodium 136 mEq/L (136-145); Total Protein 5.6 g/dL (6.0-8.3); eGFR For African Americans > 60 (> 60); eGFR For Non-African Americans > 60 (> 60)
[2017-03-19 20:27] LABS: Basophils # 0.2 K/mcL (0.0-0.2); Lymphocytes # 1.1 K/mcL (0.6-4.6); Neutrophils # 0.4 K/mcL (1.6-8.9)
[2017-03-19 20:28] LABS: Platelet Estimate Normal (Normal); Reactive Lymphocytes Present (Not Present)
[2017-03-19 20:38] LABS: Bilirubin,Urine Negative (Negative); Blood,Urine Negative (Negative); Clarity,Urine Cloudy (Clear); Color,Urine Dark Yellow (Yellow); Glucose,Urine (UA) Normal (Normal); Ketones,Urine Negative (Negative); Leukocyte Esterase,Urine Large (Negative); Nitrite,Urine Positive (Negative); Protein,Urine Negative (Neg-Trace); Specific Gravity,Urine 1.024 (1.010-1.025); Urobilinogen,Urine Normal (Normal)
[2017-03-19 20:41] LABS: Bacteria,Urine Few per hpf (None-Few); Hyaline Casts,Urine None Seen per lpf (None-Few); Squamous Epithelial Cell,Urine Many per lpf (None-Few); WBC,Urine TNTC per hpf (0-3)
[2017-03-19] MEDS ORDERED: Acetaminophen 325 MG TABLET PO PRN (23:37)
[2017-03-19] MEDS ORDERED: Naloxone 0.4 MG/ML INJ IVP PRN (23:37)
--- NOTE | 2017-03-19 23:37 | Internal Med History&Physical ---
Date of Encounter: 03/20/17 Time of Encounter: 23:36 Assessment and Plan (1) UTI (urinary tract infection) Current visit: Yes Status: Acute patient reports lower urinary tract symptoms and has had outpatient treatment with concern for failure, she was sent here for consideration of IV therapy ad further investigations in the setting of neutropenia, IV Zosyn staretd based on her prior sensitivities, we will follow microbiology results Qualifiers: Urinary tract infection type: site unspecified Hematuria presence: without hematuria Qualified Code(s): N39.0 - Urinary tract infection, site not specified (2) CLL (chronic lymphocytic leukemia) Current visit: Yes Status: Chronic will defer to outpatient management with her oncologist (3) Neutropenia Current visit: Yes Status: Acute most likely related to her CLL, will need to follow CBC, will check absolute neutrophil count Qualifiers: Neutropenia type: other Qualified Code(s): D70.8 - Other neutropenia (4) Atrial fibrillation Current visit: Yes Status: Chronic she is on systemic anticoagulation for her prior DVT and NOT for AFIB, which we will continue Qualifiers: Atrial fibrillation type: paroxysmal Qualified Code(s): I48.0 - Paroxysmal atrial fibrillation (5) Hypothyroidism Current visit: Yes Status: Chronic will continue synthroid Qualifiers: Hypothyroidism type: acquired Qualified Code(s): E03.9 - Hypothyroidism, unspecified Internal Medicine - H&P: HPI Chief complaint: urinary tract symptoms Admitted From: Emergency Dept Plans for Post Hospital Care: Home History of present illness: Ms. Fish is a 71 year old female with history of CLL not on active chemotherapy /recurrent UTI's was brought to the ER for evaluation of a urinary tract infection. Her last dose of chemo was in September and October. Per reports she has had 2 courses of Bactrim within the past 2-3 weeks without symptom resolution. She reports persistent dysuria, difficulty urinating, itching around her perineum and frequency but no hematuria. She denies fever, chills, nausea, vomiting, or poor appetite. She had an outpatient urinalysis obtained which showed gram-negative rods. Due to her history of failed outpatient management and prior history of pseudomonas UTI in addition to her immunecompromised state her oncologist asked to come to the ER for IV antibiotics PAST MEDICAL HISTORY DVT Cancer - Breast (right breast, stage I), Hypertension, Recurrent Urinary Tract Infection, early stage CLL DJD History of decreased bone density and the patient is currently on bisphosphonate. mitral valve prolapse. PAST SURGICAL HISTORY cancer surgery (partial RT breast mastectomy) SOCIAL HISTORY Tobacco use: non-smoker Alcohol use: none Drug use: none Marital status: She is Occupation and status:She retired from [employer]. The patient goes to a [employer] in [place]. Patient would like to have some volunteer opportunity and our director also as a director of [facility], and so Nesha Jhaveri gave her information concerning the [facility] volunteer opportunities. Living situation: Lives at home with her . Children: She has three children. FAMILY HISTORY Significant for her sister had breast cancer at age 49. Father had leukemia. Family history also positive for colon cancer as well as cardiac disease, hypertension, diabetes. She has a sister with bilateral breast cancer. Past Med Surg Social Fam HX - Past Medical History Medical history: atrial fibrillation, cancer, DVT, hyperlipidemia, hypertension , RA, seizures, thyroid disease Psychiatric history: no psych history - Past Surgical History Surgical History: cancer surgery - Social History Smoking Status: Never smoker Smokeless Tobacco Status: No Alcohol use: none Drug use: none Internal Medicine - H&P: Meds Levothyroxine [Synthroid] 100 mcg PO 0630 tablet 11/18/16 [Rx] Omeprazole [PriLOSEC] 20 mg PO DAILY 10 Days 11/18/16 [Rx] Melatonin 5 mg PO HS PRN 12/18/16 [History] Valganciclovir HCl [Valcyte] 900 mg PO BID #120 tablet 02/17/17 [Rx] Gabapentin [Neurontin] 100 mg PO BID #60 capsule 03/17/17 [Rx] Pravastatin Sodium [Pravachol] 80 mg PO HS #30 03/17/17 [Rx] levETIRAcetam [Keppra Oral Soln] 1,000 mg PO BID #60 03/17/17 [Rx] Azithromycin [Zithromax] 600 mg PO MOTH 03/19/17 [History] Enoxaparin [Lovenox] 70 mg SQ Q12HR 03/19/17 [History] Ibuprofen [Motrin] 600 mg PO Q8H PRN 03/19/17 [History] Lidocaine/Prilocaine CREAM [Emla] 1 appl TP AD PRN 03/19/17 [History] Nystatin [Nystatin Suspension] 500,000 units PO QID 03/19/17 [History] Oxymetazoline [Afrin] 1 spray NS BID PRN 03/19/17 [History] Allergies No Known Allergies Allergy (Verified 03/17/17 10:53) All Systems PM: A 10-system review of systems was performed and is negative for pertinent findings except as documented above in the HPI. - Constitutional Vitals: Temp Pulse Resp BP Pulse Ox 98.4 F 90 18 145/80 92 03/19/17 21:55 03/19/17 21:55 03/19/17 21:55 03/19/17 21:55 03/19/17 21:55 GENERAL: Elderly female, lying inbed, not in acute distress, Alert, HEENT: NC/AT, EOMI, PERRLA, anicteric sclera, normal conjunctiva, supple, clear nares, moist mucous membranes, RESP: Lungs are clear to auscultation bilaterally, good AE bilaterally, No crackles or wheeze CARDIO: Normal hearts sounds; S1 and 2, RRR with no murmurs, no JVD, no ankle edema GI: Soft, full, no tenderness, no organomegaly felt, normal bowel sounds heard MUSCULOSKELETAL: grossly normal movements bilaterally, no deformities noted, no calf tenderness NEUROLOGIC: CN 2-12 intact grossly. No gross motor/sensory deficit appreciated, PSYCHIATRY: AAO x 3. Mood is fair, SKIN: bilateral stasis dermatitis with additional ecchymoses on the left berry Internal Med - H&P Results - Labs CBC & Chem 7: 03/20/17 00:53 03/20/17 00:53
[2017-03-19] MEDS ORDERED: *HR* Enoxaparin 80 MG/0.8 ML SYRINGE SQ ONE (23:39)
[2017-03-19] MEDS ORDERED: VALGANCICLOVIR HCL PO SCH (23:45)
[2017-03-20] MEDS ORDERED: Melatonin 3 MG TABLET PO PRN (00:38)
[2017-03-20] MEDS: levETIRAcetam 500 MG/5 ML UDC PO SCH ×3 (00:52→20:21)
[2017-03-20 01:16] LABS: Basophils % 2.8 %; Eosinophils % 2.8 %; Hematocrit 27.2 % (35.3-44.9); Hemoglobin 8.5 g/dL (11.5-15.4); Immature Granulocytes % 0.7 % (0-4); Lymphocytes # 0.7 K/mcL (0.6-4.6); Lymphocytes % 48.9 %; Mean Corpuscular HGB Conc 31.3 g/dL (31.6-35.5); Mean Corpuscular Hemoglobin 27.6 pg (28.0-33.3); Mean Corpuscular Volume 88.3 fL (83.0-100.0); Mean Platelet Volume 11.2 fL (9.4-12.4); Monocytes # 0.2 K/mcL (0.0-1.3); Monocytes % 12.1 %; Neutrophils # 0.5 K/mcL (1.6-8.9); Platelet Count 142 K/mcL (140-400); Red Blood Count 3.08 M/mcL (3.82-4.97); Red Cell Distribution Width 14.9 % (11.5-14.5); Segmented Neutrophils % 32.7 %
[2017-03-20 01:29] LABS: BUN/Creatinine Ratio 13 (6-26); Blood Urea Nitrogen 7 mg/dL (7-20); Calcium 8.5 mg/dL (8.6-10.8); Carbon Dioxide 27 mEq/L (19-29); Chloride 109 mEq/L (98-109); Glucose 99 mg/dL (70-99); Magnesium 1.8 mg/dL (1.6-2.6); Osmolality,Calculated 286 (280-300); Phosphorous 4.1 mg/dL (2.3-4.7); Sodium 139 mEq/L (136-145); eGFR For African Americans > 60 (> 60); eGFR For Non-African Americans > 60 (> 60)
[2017-03-20 03:17] LABS: Platelet Estimate Normal (Normal); Reactive Lymphocytes Present (Not Present)
[2017-03-20 03:18] LABS: Anisocytosis 1+ (Not Present)
[2017-03-20] MEDS: *HR* Enoxaparin 80 MG/0.8 ML SYRINGE SQ SCH ×2 (06:06→17:21)
[2017-03-20] MEDS: Gabapentin 100 MG CAPSULE PO SCH ×2 (07:24→20:21)
[2017-03-20] MEDS: Piperacillin/Tazobactam 3.375 GM in D5% in Water (Mini-Bag+) 100 ML IVPB SCH ×2 (07:24→15:14)
[2017-03-20] MEDS: VALGANCICLOVIR HCL PO SCH ×2 (07:25→20:21)
[2017-03-21] MEDS: Piperacillin/Tazobactam 3.375 GM in D5% in Water (Mini-Bag+) 100 ML IVPB SCH ×4 (00:11→23:59)
[2017-03-21] MEDS: *HR* Enoxaparin 80 MG/0.8 ML SYRINGE SQ SCH ×2 (06:29→16:53)
[2017-03-21] MEDS: VALGANCICLOVIR HCL PO SCH ×2 (08:31→21:37)
[2017-03-21] MEDS: levETIRAcetam 500 MG/5 ML UDC PO SCH ×2 (08:33→21:37)
[2017-03-21] MEDS: Gabapentin 100 MG CAPSULE PO SCH ×2 (08:33→21:37)
--- NOTE | 2017-03-21 12:24 | Internal Med Progress Note ---
Date of Encounter: 03/21/17 (Late entry) Time of Encounter: 13:15 (Late entry) - Assessment and plan (1) UTI (urinary tract infection) Current Visit: Yes Status: Acute Assessment and plan: Pseudomonas resistant to Cipro but sensitive to Zosyn and cephalosporins continue Zosyn Qualifiers: Urinary tract infection type: site unspecified Hematuria presence: without hematuria Qualified Code(s): N39.0 - Urinary tract infection, site not specified (2) Atrial fibrillation Current Visit: Yes Status: Chronic Assessment and plan: Rate controlled and will be monitored. Patient is on anti-consultation mainly for the reason of history of DVT Qualifiers: Atrial fibrillation type: paroxysmal Qualified Code(s): I48.0 - Paroxysmal atrial fibrillation (3) CLL (chronic lymphocytic leukemia) Current Visit: Yes Status: Chronic Assessment and plan: Last chemotherapy in October. Pancytopenia noted. White cell count is coming down and unless it bounces up will keep patient on IV antibiotics (4) HTN (hypertension) Current Visit: Yes Status: Chronic Assessment and plan: Continue home medication and daily monitoring Qualifiers: Hypertension type: essential hypertension Qualified Code(s): I10 - Essential (primary) hypertension (5) Hypothyroidism Current Visit: Yes Status: Chronic Assessment and plan: Continue home medication and clinical monitoring Qualifiers: Hypothyroidism type: acquired Qualified Code(s): E03.9 - Hypothyroidism, unspecified (6) DVT (deep venous thrombosis) Current Visit: No Status: Acute Assessment and plan: History of DVT in the past continue anticoagulation with Lovenox Qualifiers: Qualified Code(s): I82.409 - Acute embolism and thrombosis of unspecified deep veins of unspecified lower extremity - Subjective Interval history: Ms. Dang Tellez is a 71-year-old female past medical history significant for CLL and breast cancer underwent mastectomy and chemoradiation treatment followed by 5 years of hormone treatment. She had her last chemotherapy treatment for her recurrent cancer in October. She has come in with recurrent UTI and culture shows secondary to Pseudomonas which is resistant to Cipro but sensitive to Zosyn which has been given to her. She is doing much better remains afebrile and asymptomatic however her white count has been going down and there is a concern if she will become neutropenic. We discuss the findings with the patient and inform her that we plan to keep her in hospital until her white count bounces up and it - Constitutional Vitals: Temp Pulse Resp BP Pulse Ox 98.4 F 80 18 113/72 97 03/21/17 11:25 03/21/17 11:25 03/21/17 11:25 03/21/17 11:25 03/21/17 11:25 - Head Head exam: Present: atraumatic, normocephalic - Eye Eye exam: Present: PERRL, conjuntiva pink, sclera anicteric Pupils: Present: PERRL - Neck Neck exam general surgery: Present: supple, trachea midline. Absent: lymphadenopathy - Respiratory Respiratory exam: Present: CTAB. Absent: accessory muscle use, rales, rhonchi, wheezes - Cardiovascular Cardiovascular exam: Present: RRR, +S1, +S2. Absent: diastolic murmur, gallop, rubs, systolic murmur - GI/Abdominal GI/Abdominal exam: Present: normal bowel sounds, soft, no peritoneal signs. Absent: distended, tenderness - Extremities Exam Extremities exam: Present: warm, radial pulses palpable and symetrical. Absent : calf tenderness, cyanotic, pedal edema - Neurological Exam Neurological exam: Present: CN II-XII intact, oriented X3, no focal deficits. Absent: pronater drift, facial droop, speech deficit - Skin Skin exam: Present: dry, intact Internal Medicine: Result - Labs CBC & Chem 7: 03/20/17 00:53 03/20/17 00:53 Consult Discharge Plan - Plan Referrals: Flaquito Church DO [Primary Care Provider] -
--- NOTE | 2017-03-21 12:31 | Internal Med Progress Note ---
Date of Encounter: 03/21/17 Time of Encounter: 12:30 - Assessment and plan (1) UTI (urinary tract infection) Current Visit: Yes Status: Acute Qualifiers: Urinary tract infection type: site unspecified Hematuria presence: without hematuria Qualified Code(s): N39.0 - Urinary tract infection, site not specified (2) Atrial fibrillation Current Visit: Yes Status: Chronic Qualifiers: Atrial fibrillation type: paroxysmal Qualified Code(s): I48.0 - Paroxysmal atrial fibrillation (3) CLL (chronic lymphocytic leukemia) Current Visit: Yes Status: Chronic (4) HTN (hypertension) Current Visit: Yes Status: Chronic Qualifiers: Hypertension type: essential hypertension Qualified Code(s): I10 - Essential (primary) hypertension (5) Hypothyroidism Current Visit: Yes Status: Chronic Qualifiers: Hypothyroidism type: acquired Qualified Code(s): E03.9 - Hypothyroidism, unspecified (6) DVT (deep venous thrombosis) Current Visit: No Status: Acute Qualifiers: Qualified Code(s): I82.409 - Acute embolism and thrombosis of unspecified deep veins of unspecified lower extremity (7) Neutropenia Current Visit: Yes Status: Acute Assessment and plan: White count is slightly going down and only 1.4 today with 0.5 neutrophils a dose of Neupogen will be given to continue following white count may consult oncology tomorrow Qualifiers: Neutropenia type: other Qualified Code(s): D70.8 - Other neutropenia - Subjective Interval history: Ms. Dang Tellez is a 71-year-old female past medical history significant for CLL and breast cancer underwent mastectomy and chemoradiation treatment followed by 5 years of hormone treatment. She had her last chemotherapy treatment for her recurrent cancer in October. She has come in with recurrent UTI and culture shows secondary to Pseudomonas which is resistant to Cipro but sensitive to Zosyn which has been given to her. She is doing much better remains afebrile and asymptomatic however her white count has been going down and there is a concern if she will become neutropenic. We discuss the findings with the patient and inform her that we plan to keep her in hospital until her white count bounces up and it patient by cell count has dropped to 1.4 with neutrophils are still around 500 continue watching it closely and if it drops below 500 Neupogen can be given. [facility] oncology has seen her recently in office and was okay to treat her with cephalosporins. If up urinalysis we will consult oncology. Continue Lovenox as platelet size 146,000 no fever cough or any other symptoms - Constitutional Vitals: Temp Pulse Resp BP Pulse Ox 98.4 F 80 18 113/72 97 03/21/17 11:25 03/21/17 11:25 03/21/17 11:25 03/21/17 11:25 03/21/17 11:25 - Head Head exam: Present: atraumatic, normocephalic - Eye Eye exam: Present: PERRL, conjuntiva pink, sclera anicteric Pupils: Present: PERRL - Neck Neck exam general surgery: Present: supple, trachea midline. Absent: lymphadenopathy - Respiratory Respiratory exam: Present: CTAB. Absent: accessory muscle use, rales, rhonchi, wheezes - Cardiovascular Cardiovascular exam: Present: RRR, +S1, +S2. Absent: diastolic murmur, gallop, rubs, systolic murmur - GI/Abdominal GI/Abdominal exam: Present: normal bowel sounds, soft, no peritoneal signs. Absent: distended, tenderness - Extremities Exam Extremities exam: Present: warm, radial pulses palpable and symetrical. Absent : calf tenderness, cyanotic, pedal edema - Neurological Exam Neurological exam: Present: CN II-XII intact, oriented X3, no focal deficits. Absent: pronater drift, facial droop, speech deficit - Skin Skin exam: Present: dry, intact Internal Medicine: Result - Labs CBC & Chem 7: 03/20/17 00:53 03/20/17 00:53 Labs: Short CBC 03/20/17 03/20/17 Range/Units 00:53 00:53 RBC 3.08 L (3.82-4.97) M/mcL MCV 88.3 (83.0-100.0) fL MCH 27.6 L (28.0-33.3) pg MCHC 31.3 L (31.6-35.5) g/dL RDW 14.9 H (11.5-14.5) % MPV 11.2 (9.4-12.4) fL Immature Gran % 0.7 (0-4) % Seg Neutrophils % 32.7 % Lymphocytes % 48.9 % Monocytes % 12.1 % Eosinophils % 2.8 % Basophils % 2.8 % Lymphocytes # 0.7 (0.6-4.6) K/mcL Monocytes # 0.2 (0.0-1.3) K/mcL Eosinophils # 0.0 (0.0-0.6) K/mcL Basophils # 0.0 (0.0-0.2) K/mcL Reactive Lymphocytes Present A (Not Present) Platelet Estimate Normal (Normal) Anisocytosis 1+ A (Not Present) Sodium 139 (136-145) mEq/L Potassium 4.0 (3.5-4.5) mEq/L Chloride 109 (98-109) mEq/L Carbon Dioxide 27 (19-29) mEq/L BUN 7 (7-20) mg/dL Creatinine 0.54 L (0.57-1.11) mg/dL Est GFR ( Amer) > 60 (> 60) Est GFR (Non-Af Amer) > 60 (> 60) BUN/Creatinine Ratio 13 (6-26) Glucose 99 (70-99) mg/dL Calculated Osmolality 286 (280-300) Calcium 8.5 L (8.6-10.8) mg/dL Phosphorus 4.1 (2.3-4.7) mg/dL Magnesium 1.8 (1.6-2.6) mg/dL Consult Discharge Plan - Plan Referrals: Flaquito Church DO [Primary Care Provider] -
[2017-03-22] MEDS: *HR* Enoxaparin 80 MG/0.8 ML SYRINGE SQ SCH ×2 (05:58→16:39)
[2017-03-22] MEDS: Piperacillin/Tazobactam 3.375 GM in D5% in Water (Mini-Bag+) 100 ML IVPB SCH ×3 (08:01→23:36)
[2017-03-22] MEDS: Gabapentin 100 MG CAPSULE PO SCH ×2 (08:02→20:17)
[2017-03-22] MEDS: levETIRAcetam 500 MG/5 ML UDC PO SCH ×2 (08:02→20:17)
[2017-03-22] MEDS: VALGANCICLOVIR HCL PO SCH ×2 (08:03→20:17)
[2017-03-22 10:38] LABS: Eosinophils # 0.1 K/mcL (0.0-0.6); Hematocrit 28.4 % (35.3-44.9); Hemoglobin 8.9 g/dL (11.5-15.4); Immature Platelets 4.8 % (1.1-6.1); Mean Corpuscular HGB Conc 31.3 g/dL (31.6-35.5); Mean Corpuscular Hemoglobin 27.3 pg (28.0-33.3); Mean Corpuscular Volume 87.1 fL (83.0-100.0); Mean Platelet Volume 10.1 fL (9.4-12.4); Platelet Count 134 K/mcL (140-400); Red Blood Count 3.26 M/mcL (3.82-4.97)
[2017-03-22 11:03] LABS: Lymphocytes # 0.5 K/mcL (0.6-4.6); Monocytes # 0.3 K/mcL (0.0-1.3); Neutrophils # 1.7 K/mcL (1.6-8.9)
[2017-03-22 11:04] LABS: Anisocytosis 1+ (Not Present); Large Platelets Present (Not Present); Platelet Estimate Normal (Normal); Poikilocytosis 1+ (Not Present)
--- NOTE | 2017-03-22 16:21 | Internal Med Progress Note ---
Date of Encounter: 03/22/17 Time of Encounter: 16:12 - Assessment and plan (1) UTI (urinary tract infection) Current Visit: Yes Status: Acute Qualifiers: Urinary tract infection type: site unspecified Hematuria presence: without hematuria Qualified Code(s): N39.0 - Urinary tract infection, site not specified (2) Atrial fibrillation Current Visit: Yes Status: Chronic Qualifiers: Atrial fibrillation type: paroxysmal Qualified Code(s): I48.0 - Paroxysmal atrial fibrillation (3) CLL (chronic lymphocytic leukemia) Current Visit: Yes Status: Chronic (4) HTN (hypertension) Current Visit: Yes Status: Chronic Qualifiers: Hypertension type: essential hypertension Qualified Code(s): I10 - Essential (primary) hypertension (5) Hypothyroidism Current Visit: Yes Status: Chronic Qualifiers: Hypothyroidism type: acquired Qualified Code(s): E03.9 - Hypothyroidism, unspecified (6) DVT (deep venous thrombosis) Current Visit: No Status: Acute Qualifiers: Qualified Code(s): I82.409 - Acute embolism and thrombosis of unspecified deep veins of unspecified lower extremity (7) Neutropenia Current Visit: Yes Status: Acute Qualifiers: Neutropenia type: other Qualified Code(s): D70.8 - Other neutropenia - Subjective Interval history: Ms. Dang Tellez is a 71-year-old female past medical history significant for CLL and breast cancer underwent mastectomy and chemoradiation treatment followed by 5 years of hormone treatment. She had her last chemotherapy treatment for her recurrent cancer in October. She has come in with recurrent UTI and culture shows secondary to Pseudomonas which is resistant to Cipro but sensitive to Zosyn which has been given to her. She is doing much better remains afebrile and asymptomatic however her white count has been going down and there is a concern if she will become neutropenic. We discuss the findings with the patient and inform her that we plan to keep her in hospital until her white count bounces up and it patient by cell count has dropped to 1.4 with neutrophils are still around 500 continue watching it closely and if it drops below 500 Neupogen can be given. [facility] oncology has seen her recently in office and was okay to treat her with cephalosporins. Continue Lovenox as platelet size 146,000 no fever cough or any other symptoms 03/22 patient appears quite stable and her examination is quite benign. White count has come up to 2.6 after first shot of Neupogen. A repeat shot will be given today. Oncology is consulted considering the fact that she had chemotherapy in October and this drop and leukocyte is unexplained - Constitutional Vitals: Temp Pulse Resp BP Pulse Ox 98.7 F 87 16 112/71 99 03/22/17 15:16 03/22/17 15:16 03/22/17 15:16 03/22/17 15:16 03/22/17 15:16 - Head Head exam: Present: atraumatic, normocephalic - Eye Eye exam: Present: PERRL, conjuntiva pink, sclera anicteric Pupils: Present: PERRL - Neck Neck exam general surgery: Present: supple, trachea midline. Absent: lymphadenopathy - Respiratory Respiratory exam: Present: CTAB. Absent: accessory muscle use, rales, rhonchi, wheezes - Cardiovascular Cardiovascular exam: Present: RRR, +S1, +S2. Absent: diastolic murmur, gallop, rubs, systolic murmur - GI/Abdominal GI/Abdominal exam: Present: normal bowel sounds, soft, no peritoneal signs. Absent: distended, tenderness - Extremities Exam Extremities exam: Present: warm, radial pulses palpable and symetrical. Absent : calf tenderness, cyanotic, pedal edema - Neurological Exam Neurological exam: Present: CN II-XII intact, oriented X3, no focal deficits. Absent: pronater drift, facial droop, speech deficit - Skin Skin exam: Present: dry, intact Internal Medicine: Result - Labs CBC & Chem 7: 03/22/17 10:19 03/20/17 00:53 Labs: Short CBC 03/22/17 Range/Units 10:19 WBC 2.6 L D (4.3-11.1) K/mcL Hgb 8.9 L (11.5-15.4) g/dL Hct 28.4 L (35.3-44.9) % Plt Count 134 L (140-400) K/mcL Neutrophils # 1.7 (1.6-8.9) K/mcL Consult Discharge Plan - Plan Referrals: Flaquito Church, DO [Primary Care Provider] -
[2017-03-23] MEDS: *HR* Enoxaparin 80 MG/0.8 ML SYRINGE SQ SCH ×2 (05:42→18:32)
[2017-03-23 05:43] LABS: Basophils # 0.1 K/mcL (0.0-0.2); Hematocrit 29.5 % (35.3-44.9); Hemoglobin 9.3 g/dL (11.5-15.4); Lymphocytes # 0.5 K/mcL (0.6-4.6); Mean Corpuscular HGB Conc 31.5 g/dL (31.6-35.5); Mean Corpuscular Hemoglobin 27.4 pg (28.0-33.3); Mean Corpuscular Volume 86.8 fL (83.0-100.0); Mean Platelet Volume 12.1 fL (9.4-12.4); Platelet Count 140 K/mcL (140-400)
[2017-03-23 06:01] LABS: Alanine Aminotransferase 32 Units/L (0-55); Albumin 2.9 g/dL (3.5-5.0); Albumin/Globulin Ratio 1.1 (1.1-2.2); Alkaline Phosphatase 172 Units/L (38-126); Aspartate Amino Transferase 32 Units/L (5-34); BUN/Creatinine Ratio 8 (6-26); Bilirubin,Total 0.4 mg/dL (0.2-1.2); Blood Urea Nitrogen 5 mg/dL (7-20); Calcium 8.9 mg/dL (8.6-10.8); Carbon Dioxide 27 mEq/L (19-29); Chloride 106 mEq/L (98-109); Globulin 2.6 g/dL (2.4-3.5); Glucose 94 mg/dL (70-99); Osmolality,Calculated 285 (280-300); Potassium 3.7 mEq/L (3.5-4.5); Sodium 139 mEq/L (136-145); Total Protein 5.5 g/dL (6.0-8.3); eGFR For African Americans > 60 (> 60); eGFR For Non-African Americans > 60 (> 60)
[2017-03-23 06:24] LABS: Monocytes # 0.3 K/mcL (0.0-1.3); Neutrophils # 2.1 K/mcL (1.6-8.9); Platelet Estimate Normal (Normal)
[2017-03-23 06:26] LABS: Anisocytosis 1+ (Not Present); Hypochromasia Present (Not Present); Large Platelets Present (Not Present)
[2017-03-23 06:27] LABS: Microcytosis Present (Not Present)
[2017-03-23] MEDS: Piperacillin/Tazobactam 3.375 GM in D5% in Water (Mini-Bag+) 100 ML IVPB SCH (08:01)
[2017-03-23] MEDS: Gabapentin 100 MG CAPSULE PO SCH ×2 (08:01→20:44)
[2017-03-23] MEDS: levETIRAcetam 500 MG/5 ML UDC PO SCH ×2 (08:01→20:44)
--- NOTE | 2017-03-23 08:30 | Oncology Inp Consult Note ---
Date of Encounter: 03/23/17 Time of Encounter: 08:09 - Data of Consult Patient: known to practice within the last 3 years Consult date: 03/23/17 Requesting Physician: Juliane Sosa MD Primary Care Provider: Flaquito Church DO - Consult Narrative Reason for consult: CLL, neutropenia, UTI. History of present illness: Ms. Fish is a 71 year old was established with me at the cancer center for ongoing management of chronic lymphocytic leukemia. She also has a prior diagnosis of breast cancer. I have summarized patient's heme/onc background below based on my most recent office report. Breast cancer: In October of 2009, she had a routine mammogram done at [facility] and that showed a new right breast lesion. 12/19/2009, ultrasound-guided biopsy showed a grade 3 invasive ductal carcinoma, ER/MS positive, HER 2 negative, and size was 1.1 cm. She had partial mastectomy +SNLB which confirmed a 1cm, T1c N0, stage I right- sided breast cancer. She had adjuvant radiation. Her Oncotype recurrence score came back to be 18 with an intermediate recurrence risk and she declined chemotherapy. She received 5 years of endocrine therapy (Arimidex) from 02/26/2010 to January 2010. She was followed by Drs. Liam Ontiveros and Kedar Lim at [facility] but more recently has moved all of her care to [place] due to insurance changes. Most recent mammogram 02/04/16 showed stable posttreatment changes in the right breast. CLL: She also has a history of CLL that was diagnosed based on lymphocytosis on 07/23. Peripheral blood flow cytometry confirmed CLL. Cytogenetics and FISH showed trisomy 12 as well as 13 q deletion, all compatible with an intermediate risk prognostication. Most recent CT of the neck, chest, abdomen, pelvis 08/11/16 showed: Progressive adenopathy in the cervical, supraclavicular, axillary lymph node areas. Diffuse, progressive, bilateral adenopathy involving retroperitoneal, bilateral pelvic, retrocrural lymphadenopathy. She had a bone marrow biopsy 09/04/16 confirmed 75% involvement with a monoclonal B-cell population with core expression of CD5, CD23 and absence of CD10, FMC 7, CD38. Immunofluorescence team for CD20, lambda. Overall immunophenotype compatible with CLL. Absence of CD38 is a favorable prognostic indicator. CLL FISH analysis positive for trisomy 12 and 13q deletion also indicating a intermediate prognosis. Based on above, we recommended Rituxan day 1+ bendamustine day 1 day to every 28 days regimen x 4-6 cycles depending on response and tolerability. Treatment was started 09/16/16.Stopped after 2 cycles due to clinical decompensation. As of her most recent evaluation including most recent imaging from 03/18/17, CLL is under very good control. Patient is currently hospitalized for Pseudomonas UTI. She also been found to be persistently neutropenic and has been started on Neupogen with subsequent improvement in her counts. Regarding her UTI, she is on Zosyn and reports improvement in her symptoms. Oncology is consulted re: patient's neutropenia in the setting of previously diagnosed CLL. Patient seen and examined at bedside. Chart reviewed for details of ongoing care by hospital team which is much appreciated. She reports significant improvement in her urinary symptoms since hospitalization. Images doing quite well. No other new physical complaints. Rest of past medical, surgical, family, social history detailed below and verified with patient today. Review of systems: 12 point review of systems performed with patient and positive findings noted in history of present illness. All other systems are negative: Physical exam: Vital Signs Temp 98.5 F 03/23/17 07:08 Pulse 88 03/23/17 07:08 Resp 16 03/23/17 07:08 BP 116/74 03/23/17 07:08 Pulse Ox 96 03/23/17 07:08 GENERAL: Alert and oriented, comfortable appearing. Mental Status: Affect appropriate for circumstances HEENT: Sclerae anicteric. No mucositis or thrush. No other oral or pharyngeal lesions or erythema. Skin: No rashes or petechiae. No evidence of skin malignancy Lymph nodes: No cervical, supraclavicular, axillary, or inguinal adenopathy. Lungs: Clear to auscultation bilaterally. Clear to percussion bilaterally. Cardiovascular: Regular rate and rhythm. No gallops, murmurs, or rubs. Abdomen: Soft, nontender; No organomegaly or masses palpable. Extremities: No edema. No calf swelling or tenderness. No joint deformity. Neurologic: Alert, normal gait; no focal weakness or sensory abnormalities. Results: Laboratory Last Values WBC 3.1 K/mcL (4.3-11.1) L 03/23/17 05:28 RBC 3.40 M/mcL (3.82-4.97) L 03/23/17 05:28 Hgb 9.3 g/dL (11.5-15.4) L 03/23/17 05:28 Hct 29.5 % (35.3-44.9) L 03/23/17 05:28 MCV 86.8 fL (83.0-100.0) 03/23/17 05:28 MCH 27.4 pg (28.0-33.3) L 03/23/17 05:28 MCHC 31.5 g/dL (31.6-35.5) L 03/23/17 05:28 RDW 15.0 % (11.5-14.5) H 03/23/17 05:28 Plt Count 140 K/mcL (140-400) 03/23/17 05:28 MPV 12.1 fL (9.4-12.4) 03/23/17 05:28 Immature Gran % 0.7 % (0-4) 03/20/17 00:53 Seg Neutrophils % 53.0 % 03/23/17 05:28 Band Neutrophils % 15.0 % (0-4) H 03/23/17 05:28 Lymphocytes % 15.0 % 03/23/17 05:28 Monocytes % 11.0 % 03/23/17 05:28 Eosinophils % 1.0 % 03/23/17 05:28 Basophils % 3.0 % 03/23/17 05:28 Metamyelocytes % 1.0 % (0) H 03/23/17 05:28 Myelocytes % 1.0 % (0) H 03/23/17 05:28 Neutrophils # 2.1 K/mcL (1.6-8.9) 03/23/17 05:28 Lymphocytes # 0.5 K/mcL (0.6-4.6) L 03/23/17 05:28 Monocytes # 0.3 K/mcL (0.0-1.3) 03/23/17 05:28 Eosinophils # 0.0 K/mcL (0.0-0.6) 03/23/17 05:28 Basophils # 0.1 K/mcL (0.0-0.2) 03/23/17 05:28 Reactive Lymphocytes Present (Not Present) A 03/20/17 00:53 Platelet Estimate Normal (Normal) 03/23/17 05:28 Large Platelets Present (Not Present) A 03/23/17 05:28 Immature Plt Fraction 4.8 % (1.1-6.1) 03/22/17 10:19 Hypochromasia Present (Not Present) A 03/23/17 05:28 Poikilocytosis 1+ (Not Present) A 03/22/17 10:19 Anisocytosis 1+ (Not Present) A 03/23/17 05:28 Microcytosis Present (Not Present) A 03/23/17 05:28 Sodium 139 mEq/L (136-145) 03/23/17 05:28 Potassium 3.7 mEq/L (3.5-4.5) 03/23/17 05:28 Chloride 106 mEq/L (98-109) 03/23/17 05:28 Carbon Dioxide 27 mEq/L (19-29) 03/23/17 05:28 BUN 5 mg/dL (7-20) L 03/23/17 05:28 Creatinine 0.62 mg/dL (0.57-1.11) 03/23/17 05:28 Est GFR ( Amer) > 60 (> 60) 03/23/17 05:28 Est GFR (Non-Af Amer) > 60 (> 60) 03/23/17 05:28 BUN/Creatinine Ratio 8 (6-26) 03/23/17 05:28 Glucose 94 mg/dL (70-99) 03/23/17 05:28 Calculated Osmolality 285 (280-300) 03/23/17 05:28 Lactic Acid 1.0 mmol/L (0.5-2.2) 03/19/17 19:38 Calcium 8.9 mg/dL (8.6-10.8) 03/23/17 05:28 Phosphorus 4.1 mg/dL (2.3-4.7) 03/20/17 00:53 Magnesium 1.8 mg/dL (1.6-2.6) 03/20/17 00:53 Total Bilirubin 0.4 mg/dL (0.2-1.2) 03/23/17 05:28 Direct Bilirubin 0.1 mg/dL (0.0-0.5) 03/19/17 19:38 Indirect Bilirubin 0.2 mg/dL (0.0-1.2) 03/19/17 19:38 AST 32 Units/L (5-34) 03/23/17 05:28 ALT 32 Units/L (0-55) 03/23/17 05:28 Alkaline Phosphatase 172 Units/L (38-126) H 03/23/17 05:28 Serum Total Protein 5.5 g/dL (6.0-8.3) L 03/23/17 05:28 Albumin 2.9 g/dL (3.5-5.0) L 03/23/17 05:28 Globulin 2.6 g/dL (2.4-3.5) 03/23/17 05:28 Albumin/Globulin Ratio 1.1 (1.1-2.2) 03/23/17 05:28 Lipase 42 Units/L (8-78) 03/19/17 19:38 Urine Color Dark Yellow (Yellow) 03/19/17 20:30 Urine Clarity Cloudy (Clear) A 03/19/17 20:30 Urine pH 7.0 pH Units (5.0-8.0) 03/19/17 20:30 Ur Specific [place] 1.024 (1.010-1.025) 03/19/17 20:30 Urine Protein Negative mg/dL (Neg-Trace) 03/19/17 20:30 Urine Glucose (UA) Normal mg/dL (Normal) 03/19/17 20:30 Urine Ketones Negative mg/dL (Negative) 03/19/17 20:30 Urine Blood Negative (Negative) 03/19/17 20:30 Urine Nitrite Positive (Negative) A 03/19/17 20:30 Urine Bilirubin Negative (Negative) 03/19/17 20:30 Urine Urobilinogen Normal mg/dL (Normal) 03/19/17 20:30 Ur Leukocyte Esterase Large (Negative) H 03/19/17 20:30 Urine Microscopic RBC 3-5 per hpf (0-3) H 03/19/17 20:30 Urine Microscopic WBC TNTC per hpf (0-3) H 03/19/17 20:30 Ur Squamous Epith Cells Many per lpf (None-Few) H 03/19/17 20:30 Urine Bacteria Few per hpf (None-Few) 03/19/17 20:30 Hyaline Casts None Seen per lpf (None-Few) 03/19/17 20:30 Ur Culture Indicated? YES (NO) A 03/19/17 20:30 Radiographic studies: Impression/recommendations: Neutropenia plus UTI: I suspect the neutropenia is of multifactorial etiology. 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 I agree with Neupogen therapy as you're doing in the setting of active infection and will recommend to continue to ANC is greater than 1500 on 3 consecutive days. If patient is medically optimal for discharge otherwise, I'll need to go ahead and discharge her and will arrange for her to continue Neupogen as an outpatient. I recent workup did not show any evidence of additional contributing factors such as hematinic deficiencies, thyroid dysfunction, autoimmune etiology. No other workup needed at this time and rest of her workup can be completed as an outpatient. CLL: This is under good control in most recent evaluation including blood work and imaging. Breast cancer: Completely treated. No evidence of active breast cancer at this time. We'll follow the patient peripherally with you during this hospitalization. Please call with interval hematologic questions. Thank you for your excellent ongoing care for allowing us to see her while in- house. Past Med Surg Social Fam HX - Past Medical History Medical history: atrial fibrillation, cancer, DVT, hyperlipidemia, hypertension , RA, seizures, thyroid disease Psychiatric history: no psych history - Past Surgical History Surgical History: cancer surgery - Social History Smoking Status: Never smoker Smokeless Tobacco Status: No Alcohol use: none Drug use: none Medications and Allergies Levothyroxine [Synthroid] 100 mcg PO 0630 tablet 11/18/16 [Rx] Omeprazole [PriLOSEC] 20 mg PO DAILY 10 Days 11/18/16 [Rx] Melatonin 5 mg PO HS PRN 12/18/16 [History] Valganciclovir HCl [Valcyte] 900 mg PO BID #120 tablet 02/17/17 [Rx] Gabapentin [Neurontin] 100 mg PO BID #60 capsule 03/17/17 [Rx] Pravastatin Sodium [Pravachol] 80 mg PO HS #30 03/17/17 [Rx] levETIRAcetam [Keppra Oral Soln] 1,000 mg PO BID #60 03/17/17 [Rx] Azithromycin [Zithromax] 600 mg PO MOTH 03/19/17 [History] Enoxaparin [Lovenox] 70 mg SQ Q12HR 03/19/17 [History] Ibuprofen [Motrin] 600 mg PO Q8H PRN 03/19/17 [History] Lidocaine/Prilocaine CREAM [Emla] 1 appl TP AD PRN 03/19/17 [History] Nystatin [Nystatin Suspension] 500,000 units PO QID 03/19/17 [History] Oxymetazoline [Afrin] 1 spray NS BID PRN 03/19/17 [History] Allergies No Known Allergies Allergy (Verified 03/17/17 10:53) Oncology - Exam - Constitutional Vitals: Temp Pulse Resp BP Pulse Ox 98.5 F 88 16 116/74 96 03/23/17 07:08 03/23/17 07:08 03/23/17 07:08 03/23/17 07:08 03/23/17 07:08 Oncology - Results - Labs Labs: Short CBC 03/22/17 03/23/17 Range/Units 10:19 05:28 WBC 2.6 L D 3.1 L (4.3-11.1) K/mcL Hgb 8.9 L 9.3 L (11.5-15.4) g/dL Hct 28.4 L 29.5 L (35.3-44.9) % Plt Count 134 L 140 (140-400) K/mcL Neutrophils # 1.7 2.1 (1.6-8.9) K/mcL BMP 03/23/17 05:28 Sodium 139 Potassium 3.7 Chloride 106 Carbon Dioxide 27 BUN 5 L Creatinine 0.62 Glucose 94 Calcium 8.9 Liver Function 03/23/17 Range/Units 05:28 Total Bilirubin 0.4 (0.2-1.2) mg/dL AST 32 (5-34) Units/L ALT 32 (0-55) Units/L Alkaline Phosphatase 172 H (38-126) Units/L Albumin 2.9 L (3.5-5.0) g/dL Consult Discharge Plan - Plan Referrals: Flaquito Church, [Primary Care Provider] -
[2017-03-23] MEDS: VALGANCICLOVIR HCL PO SCH ×2 (08:34→20:44)
--- NOTE | 2017-03-23 12:22 | Internal Med Progress Note ---
Date of Encounter: 03/23/17 Time of Encounter: 12:19 - Assessment and plan (1) UTI (urinary tract infection) Current Visit: Yes Status: Acute Assessment and plan: Urine culture grows pseudomonas aeruginosa. We will change antibiotics to IV cefepime. Plan for discharge on IV antibiotics, given her underlying immunocompromise and neutropenia. Qualifiers: Urinary tract infection type: acute cystitis Hematuria presence: without hematuria Qualified Code(s): N30.00 - Acute cystitis without hematuria (2) Neutropenia Current Visit: Yes Status: Acute Assessment and plan: Hematology/oncology consult appreciated, Agreed with Neupogen to maintain absolute neutrophil count greater than 1500. Neutrophil count noted to be improving, about 1500 since yesterday. Continue to monitor closely. Outpatient hematology follow-up. Qualifiers: Neutropenia type: other Qualified Code(s): D70.8 - Other neutropenia (3) CLL (chronic lymphocytic leukemia) Current Visit: Yes Status: Chronic Assessment and plan: Noted to be under good control, per oncology. Recommend outpatient follow-up. (4) HTN (hypertension) Current Visit: Yes Status: Chronic Assessment and plan: Blood pressure noted to be well controlled. Continue home medications. Qualifiers: Hypertension type: essential hypertension Qualified Code(s): I10 - Essential (primary) hypertension (5) Hypothyroidism Current Visit: Yes Status: Chronic Assessment and plan: Resume levothyroxine. Qualifiers: Hypothyroidism type: unspecified Qualified Code(s): E03.9 - Hypothyroidism , unspecified (6) DVT (deep venous thrombosis) Current Visit: Yes Status: Chronic Assessment and plan: Continue Lovenox per home regimen. Qualifiers: DVT location: lower extremity Affected thrombotic vein of extremity: unspecified vein of extremity Chronicity: chronic Laterality: unspecified laterality Qualified Code(s): I82.509 - Chronic embolism and thrombosis of unspecified deep veins of unspecified lower extremity (7) Atrial fibrillation Current Visit: Yes Status: Chronic Assessment and plan: Currently rate controlled. Qualifiers: Atrial fibrillation type: paroxysmal Qualified Code(s): I48.0 - Paroxysmal atrial fibrillation - Subjective Interval history: Feels better; has memory problems and unable to provide detailed history; some lower abdominal pain, no fever/chills, nausea/vomiting; - Constitutional Vitals: Temp Pulse Resp BP Pulse Ox 98.4 F 93 15 119/76 95 03/23/17 10:48 03/23/17 10:48 03/23/17 10:48 03/23/17 10:48 03/23/17 10:48 General appearance: Present: A&O X 2, answers questions appropriately (poor insight and poor memory) - Respiratory Respiratory exam: Present: CTAB. Absent: accessory muscle use, rales, rhonchi, wheezes - Cardiovascular Cardiovascular exam: Present: RRR, +S1, +S2. Absent: diastolic murmur, gallop, rubs, systolic murmur - GI/Abdominal GI/Abdominal exam: Present: normal bowel sounds, soft (mild suprapubic tenderness), no peritoneal signs. Absent: distended, tenderness - Extremities Exam Extremities exam: Present: full ROM, pedal edema (nonpitting, chronic), warm, radial pulses palpable and symetrical. Absent: calf tenderness, cyanotic Internal Medicine: Result - Labs CBC & Chem 7: 03/23/17 05:28 03/23/17 05:28 Labs: Short CBC 03/23/17 Range/Units 05:28 WBC 3.1 L (4.3-11.1) K/mcL Hgb 9.3 L (11.5-15.4) g/dL Hct 29.5 L (35.3-44.9) % Plt Count 140 (140-400) K/mcL Neutrophils # 2.1 (1.6-8.9) K/mcL BMP 03/23/17 05:28 Sodium 139 Potassium 3.7 Chloride 106 Carbon Dioxide 27 BUN 5 L Creatinine 0.62 Glucose 94 Calcium 8.9 Liver Function 03/23/17 Range/Units 05:28 Total Bilirubin 0.4 (0.2-1.2) mg/dL AST 32 (5-34) Units/L ALT 32 (0-55) Units/L Alkaline Phosphatase 172 H (38-126) Units/L Albumin 2.9 L (3.5-5.0) g/dL Consult Discharge Plan - Plan Referrals: Dena Ugarte MANAGER VOICE [Advanced Practice Nurse] - 03/31/17 1:30 pm
[2017-03-23] MEDS: Cefepime HCl 1,000 MG in D5% in Water (Mini-Bag+) 100 ML IVPB SCH (16:38)
[2017-03-24] MEDS: Cefepime HCl 1,000 MG in D5% in Water (Mini-Bag+) 100 ML IVPB SCH ×3 (00:45→14:22)
[2017-03-24 04:36] LABS: Eosinophils # 0.1 K/mcL (0.0-0.6); Hematocrit 30.8 % (35.3-44.9); Hemoglobin 9.4 g/dL (11.5-15.4); Mean Corpuscular HGB Conc 30.5 g/dL (31.6-35.5); Mean Corpuscular Hemoglobin 26.6 pg (28.0-33.3); Mean Corpuscular Volume 87.3 fL (83.0-100.0); Platelet Count 153 K/mcL (140-400); Red Blood Count 3.53 M/mcL (3.82-4.97); Red Cell Distribution Width 15.1 % (11.5-14.5)
[2017-03-24 04:52] LABS: Alanine Aminotransferase 29 Units/L (0-55); Albumin 2.9 g/dL (3.5-5.0); Alkaline Phosphatase 181 Units/L (38-126); Aspartate Amino Transferase 31 Units/L (5-34); BUN/Creatinine Ratio 7 (6-26); Carbon Dioxide 29 mEq/L (19-29); Chloride 107 mEq/L (98-109); Globulin 2.8 g/dL (2.4-3.5); Glucose 92 mg/dL (70-99); Osmolality,Calculated 287 (280-300); Potassium 3.9 mEq/L (3.5-4.5); Sodium 140 mEq/L (136-145); Total Protein 5.7 g/dL (6.0-8.3); eGFR For African Americans > 60 (> 60); eGFR For Non-African Americans > 60 (> 60)
[2017-03-24 05:08] LABS: Bilirubin,Total < 0.3 mg/dL (0.2-1.2); Blood Urea Nitrogen 4 mg/dL (7-20)
[2017-03-24 05:42] LABS: Lymphocytes # 0.6 K/mcL (0.6-4.6); Monocytes # 0.5 K/mcL (0.0-1.3); Neutrophils # 1.8 K/mcL (1.6-8.9)
[2017-03-24 05:44] LABS: Hypochromasia Present (Not Present); Platelet Estimate Normal (Normal)
[2017-03-24 05:45] LABS: Large Platelets Present (Not Present)
[2017-03-24] MEDS: *HR* Enoxaparin 80 MG/0.8 ML SYRINGE SQ SCH (06:29)
[2017-03-24] MEDS: levETIRAcetam 500 MG/5 ML UDC PO SCH (08:23)
[2017-03-24] MEDS: Gabapentin 100 MG CAPSULE PO SCH (08:23)
[2017-03-24] MEDS: VALGANCICLOVIR HCL PO SCH (08:24)
[2017-03-24 10:46] VITALS: BP 114/72
--- NOTE | 2017-03-24 12:58 | Discharge Summary ---
Date of Encounter: 03/24/17 Time of Encounter: 12:00 - Discharge Diagnosis (1) UTI (urinary tract infection) Priority: Primary Status: Acute Qualifiers: Urinary tract infection type: acute cystitis Hematuria presence: without hematuria Qualified Code(s): N30.00 - Acute cystitis without hematuria (2) Neutropenia Priority: Primary Status: Acute Qualifiers: Neutropenia type: other Qualified Code(s): D70.8 - Other neutropenia (3) CLL (chronic lymphocytic leukemia) Priority: Secondary Status: Chronic (4) HTN (hypertension) Priority: Secondary Status: Chronic Qualifiers: Hypertension type: essential hypertension Qualified Code(s): I10 - Essential (primary) hypertension (5) Hypothyroidism Priority: Secondary Status: Chronic Qualifiers: Hypothyroidism type: unspecified Qualified Code(s): E03.9 - Hypothyroidism , unspecified (6) DVT (deep venous thrombosis) Priority: Secondary Status: Chronic Qualifiers: DVT location: lower extremity Affected thrombotic vein of extremity: unspecified vein of extremity Chronicity: chronic Laterality: unspecified laterality Qualified Code(s): I82.509 - Chronic embolism and thrombosis of unspecified deep veins of unspecified lower extremity (7) Atrial fibrillation Priority: Secondary Status: Chronic Qualifiers: Atrial fibrillation type: paroxysmal Qualified Code(s): I48.0 - Paroxysmal atrial fibrillation - Discharge Medications Prescriptions: Cefepime HCl 1 gm IJ Q8H #30 vial Home Medications: Levothyroxine [Synthroid] 100 mcg PO 0630 tablet 11/18/16 [Rx] Omeprazole [PriLOSEC] 20 mg PO DAILY 10 Days 11/18/16 [Rx] Melatonin 5 mg PO HS PRN 12/18/16 [History] Valganciclovir HCl [Valcyte] 900 mg PO BID #120 tablet 02/17/17 [Rx] Gabapentin [Neurontin] 100 mg PO BID #60 capsule 03/17/17 [Rx] Pravastatin Sodium [Pravachol] 80 mg PO HS #30 03/17/17 [Rx] levETIRAcetam [Keppra Oral Soln] 1,000 mg PO BID #60 03/17/17 [Rx] Azithromycin [Zithromax] 600 mg PO MOTH 03/19/17 [History] Enoxaparin [Lovenox] 70 mg SQ Q12HR 03/19/17 [History] Ibuprofen [Motrin] 600 mg PO Q8H PRN 03/19/17 [History] Lidocaine/Prilocaine CREAM [Emla] 1 appl TP AD PRN 03/19/17 [History] Nystatin [Nystatin Suspension] 500,000 units PO QID 03/19/17 [History] Oxymetazoline [Afrin] 1 spray NS BID PRN 03/19/17 [History] Cefepime HCl 1 gm IJ Q8H #30 vial 03/24/17 [Rx] Allergies/Adverse Reactions: Allergies No Known Allergies Allergy (Verified 03/17/17 10:53) Date of admission: 03/19/17 20:53 Primary care physician: Flaquito Church DO Consults: 03/22/17 16:51 Consult to Oncology Hematology [CONS] Routine Consulting Provider: Lori Webster Reason for Consult: Neurtropenia Time Notified: 16:52 Call Completed: Yes 03/24/17 08:22 Consult to Continuous Improvement Coach [CONS] Routine Reason for SW Consult: Home IV antibiotics 03/24/17 10:39 Consult to Invasive Line Access Team [CONS] Routine Reason for Consult: at home IV ATB Line Type: EPIV Discharging clinician: Juliane Sosa Anticipated date of discharge: 03/24/17 - Patient Status Disposition: Home Health Service Condition: Fair Functional capacity at discharge: uses cane/walker Overall status at discharge: patient is progressing back to baseline - Discharge Instructions Instructions: Urinary Tract Infection in Women (DC) Follow Up With: Dena Ugarte MINE SAFETY DIRECTOR [Advanced Practice Nurse] - 03/31/17 1:30 pm - Diet and Activity Activity: as per physical therapy, resume usual activities as tolerated Diet: low fat, low cholesterol, low salt diet Hospital course: Ms. Fish is a 71 year old female with history of DVT and CLL was sent in for possible IV antibiotics for resistant UTI. Patient is noted to have positive urinalysis and urine cultures despite oral antibiotics and has been referred by her oncologist for possible IV antibiotics. Urine culture was sent and she was started on empiric IV antibiotics and remained asymptomatic. She was noted to have neutropenia and received 2 doses of Neupogen during this hospitalization with good response. Hematology was consulted for neutropenia and agreed with this management and recommended to follow up as outpatient. Urine culture eventually grew pseudomonas aeruginosa and patient is being discharged with 10 day course of IV cefepime. Patient is noted to have home health services in place and is currently being discharged with home infusion of IV antibiotics through her [facility]. Patient is otherwise medically stable for discharge. - Time Spent with Patient Total time spent providing and/or coordinating discharge services: Greater than 30 minutes (45 min) - Constitutional Vitals: Temp Pulse Resp BP Pulse Ox 98.6 F 83 18 114/72 96 03/24/17 10:42 03/24/17 10:42 03/24/17 10:42 03/24/17 10:42 03/24/17 10:42 General appearance: Present: A&O X 2, answers questions appropriately (poor insight and poor memory) - Respiratory Respiratory exam: Present: CTAB. Absent: accessory muscle use, rales, rhonchi, wheezes - Cardiovascular Cardiovascular exam: Present: RRR, +S1, +S2. Absent: diastolic murmur, gallop, rubs, systolic murmur
--- NOTE | 2017-03-24 13:00 | Physician Discharge Referral ---
Home Health/Hosp Referral Info Transfer to: Home Health Attending Provider: Juliane Sosa Provider in Charge Post Discharge: PCP - Diagnosis (1) UTI (urinary tract infection) Priority: Primary Status: Acute (2) Neutropenia Priority: Primary Status: Acute (3) CLL (chronic lymphocytic leukemia) Priority: Secondary Status: Chronic (4) HTN (hypertension) Priority: Secondary Status: Chronic (5) Hypothyroidism Priority: Secondary Status: Chronic (6) DVT (deep venous thrombosis) Priority: Secondary Status: Chronic (7) Atrial fibrillation Priority: Secondary Status: Chronic - Respiratory Orders Smoking Cessation: Smoking cessation has been advised. For more information, call the [place] Tobacco Quit Line at 4-475-QAFH-NOW. - Diet/Nutrition Diet/Nutrition Orders: Cardiac - Activity Activity Orders: Ambulate - Services Needed Following services are medically necessary services: Nursing, Physical Therapy, Occupational Therapy, Home Infusion - Transfer Medications Prescriptions: Cefepime HCl 1 gm IJ Q8H #30 vial Home Medications: Levothyroxine [Synthroid] 100 mcg PO 0630 tablet 11/18/16 [Rx] Omeprazole [PriLOSEC] 20 mg PO DAILY 10 Days 11/18/16 [Rx] Melatonin 5 mg PO HS PRN 12/18/16 [History] Valganciclovir HCl [Valcyte] 900 mg PO BID #120 tablet 02/17/17 [Rx] Gabapentin [Neurontin] 100 mg PO BID #60 capsule 03/17/17 [Rx] Pravastatin Sodium [Pravachol] 80 mg PO HS #30 03/17/17 [Rx] levETIRAcetam [Keppra Oral Soln] 1,000 mg PO BID #60 03/17/17 [Rx] Azithromycin [Zithromax] 600 mg PO MOTH 03/19/17 [History] Enoxaparin [Lovenox] 70 mg SQ Q12HR 03/19/17 [History] Ibuprofen [Motrin] 600 mg PO Q8H PRN 03/19/17 [History] Lidocaine/Prilocaine CREAM [Emla] 1 appl TP AD PRN 03/19/17 [History] Nystatin [Nystatin Suspension] 500,000 units PO QID 03/19/17 [History] Oxymetazoline [Afrin] 1 spray NS BID PRN 03/19/17 [History] Cefepime HCl 1 gm IJ Q8H #30 vial 03/24/17 [Rx] Allergies/Adverse Reactions: Allergies No Known Allergies Allergy (Verified 03/17/17 10:53) Certification: Further, I certify that my clinical findings support that this patient is homebound (i.e. absences from home require considerable and taxing effort and are for medical reasons or pentec[employer] services or infrequently or short duration when for other reasons) because: Homebound Reason: Patient requires assistance of a person or device to safely leave home, Leaving home requires considerable and taxing effort due to condition Attestation: My signature below is to certify that this patient is under my care and that I, or nurse practitioner, or a physician's assistant head cashier working with me, has a face-to -face encounter with this patient.
== END 2017-03-24 16:13 | disposition home health service (06) ==
LOC: EMEROO 18:26 → 3NENU 18:26 → SUATTDRO 20:53 → 3NENU 21:36 → 3ANU 03-22 18:32
PROVIDERS: ADMIT Family Medicine; ATTEND Internal Medicine

== ENCOUNTER 2017-04-24 13:53 | Observation (INO) ==
[2017-04-24 15:03] LABS: Basophils # 0.1 K/mcL (0.0-0.2); Basophils % 1.8 %; Eosinophils % 0.6 %; Hematocrit 35.6 % (35.3-44.9); Hemoglobin 11.1 g/dL (11.5-15.4); Immature Granulocytes % 1.5 % (0-4); Lymphocytes % 28.9 %; Mean Corpuscular HGB Conc 31.2 g/dL (31.6-35.5); Mean Corpuscular Hemoglobin 29.3 pg (28.0-33.3); Mean Corpuscular Volume 93.9 fL (83.0-100.0); Mean Platelet Volume 10.5 fL (9.4-12.4); Monocytes # 0.3 K/mcL (0.0-1.3); Monocytes % 9.4 %; Platelet Count 118 K/mcL (140-400); Red Blood Count 3.79 M/mcL (3.82-4.97); Red Cell Distribution Width 22.5 % (11.5-14.5); Segmented Neutrophils % 57.8 %
[2017-04-24 15:17] LABS: Prothrombin Time 11.1 Seconds (9.4-12.1)
[2017-04-24 15:19] LABS: Activated Partial Thrombo Time 41.3 Seconds (26.0-36.0)
[2017-04-24 15:20] LABS: Alanine Aminotransferase 37 Units/L (0-55); Albumin 2.9 g/dL (3.5-5.0); Alkaline Phosphatase 168 Units/L (38-126); Aspartate Amino Transferase 40 Units/L (5-34); BUN/Creatinine Ratio 10 (6-26); Bilirubin,Direct 0.2 mg/dL (0.0-0.5); Bilirubin,Indirect 0.2 mg/dL (0.0-1.2); Bilirubin,Total 0.4 mg/dL (0.2-1.2); Blood Urea Nitrogen 7 mg/dL (7-20); Calcium 8.8 mg/dL (8.6-10.8); Carbon Dioxide 28 mEq/L (19-29); Chloride 100 mEq/L (98-109); Globulin 2.9 g/dL (2.4-3.5); Glucose 117 mg/dL (70-99); Osmolality,Calculated 275 (280-300); Potassium 3.7 mEq/L (3.5-4.5); Sodium 133 mEq/L (136-145); Total Protein 5.8 g/dL (6.0-8.3); eGFR For African Americans > 60 (> 60); eGFR For Non-African Americans > 60 (> 60)
[2017-04-24 15:28] LABS: Bilirubin,Urine Negative (Negative); Blood,Urine Negative (Negative); Clarity,Urine Clear (Clear); Color,Urine Yellow (Yellow); Glucose,Urine (UA) Normal (Normal); Ketones,Urine Negative (Negative); Leukocyte Esterase,Urine Negative (Negative); Nitrite,Urine Negative (Negative); PH,Urine 7.5 pH Units (5.0-8.0); Protein,Urine Negative (Neg-Trace); Specific Gravity,Urine 1.015 (1.010-1.025); Urobilinogen,Urine Normal (Normal)
[2017-04-24] MEDS ORDERED: Vancomycin 1,000 MG in D5% in Water 250 ML IVPB ONE (15:36)
--- NOTE | 2017-04-24 15:42 | Emergency Department Note ---
Disposition Clinical Impression: Fever Qualifiers: Fever type: due to other condition Qualified Code(s): R50.81 - Fever presenting with conditions classified elsewhere Disposition: Admitted As Inpatient Referrals: NONE,PCP [Primary Care Provider] - Forms: ED Satisfaction Letter Fever HPI - General Chief Complaint: ED Weakness Stated Complaint: fever, CA PT Time Seen by Provider: 04/24/17 14:06 Source: patient Limitations: no limitations Nursing Notes Reviewed: Yes Vital Signs Reviewed: Yes - History of Present Illness HPI Narrative: Patient is a 71-year-old female with a history of CLL and currently on outpatient Zosyn for pneumonia is here for fever. The patient has been her baseline state of health but they are supposed to check temperatures daily. Her checked her first temperature was 100.4 then repeated it was 101.4. She denies any fevers chills nausea vomiting no change in her baseline status. They spoke with her oncologist Dr. valentin who recommended coming into the hospital for blood work and overnight observation. Pt Subjective Complaint: fever Onset (ago): hour(s) (4) Maximum Temperature Reported: 101.4 F Temperature Source: oral Context: recent antibiotic use (Patient has a PICC line and is on Zosyn) Improves with: nothing Worsens with: nothing Treatments prior to arrival fever: antibiotics - Related Data Home Medications Medication Instructions Recorded Confirmed Melatonin 5 mg PO HS PRN 12/18/16 04/12/17 Enoxaparin [Lovenox] 70 mg SQ Q12HR 03/19/17 04/12/17 Ibuprofen [Motrin] 600 mg PO Q8H PRN 03/19/17 04/12/17 Lidocaine/Prilocaine CREAM [Emla] 1 appl TP AD PRN 03/19/17 04/12/17 Oxymetazoline [Afrin] 1 spray NS BID PRN 03/19/17 04/12/17 levETIRAcetam [Levetiracetam] 1,000 mg PO BID 04/12/17 04/12/17 Previous Rx's Medication Instructions Recorded Levothyroxine [Synthroid] 100 mcg PO 0630 tablet 11/18/16 Omeprazole [PriLOSEC] 20 mg PO DAILY 10 Days 11/18/16 Valganciclovir HCl [Valcyte] 900 mg PO BID #120 tablet 02/17/17 Gabapentin [Neurontin] 100 mg PO BID #60 capsule 03/17/17 Pravastatin Sodium [Pravachol] 80 mg PO HS #30 03/17/17 Nystatin [Nystatin Suspension] 500,000 units PO QID #400 ml 03/31/17 Allergies Allergy/AdvReac Type Severity Reaction Status Date / Time No Known Allergies Allergy Verified 04/24/17 14:01 All systems ED: reviewed and negative except as stated. 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 - Social History Smoking Status: Never smoker Alcohol use: Reports: none Drug use: Reports: none Physical Exam - General Limitations: no limitations General appearance: alert, in no apparent distress - Head Head exam: atraumatic, normocephalic, normal inspection - Eye Eye exam: Present: normal appearance, PERRL, EOMI - Expanded Eye Exam Pupils: Left: reactive - ENT ENT exam: normal exam, normal oropharynx, mucous membranes moist - Expanded ENT Exam External ear exam: Present: normal external inspection Mouth exam: Present: normal external inspection Teeth exam: Present: normal inspection Throat exam: Present: normal inspection - Neck Neck exam: Present: normal inspection, full ROM, trachea midline - Chest Chest inspection: Present: normal inspection, symmetric chest wall rise - Respiratory Respiratory exam: Present: normal lung sounds bilaterally - Cardiovascular Cardiovascular exam: Present: regular rate, normal rhythm, normal heart sounds - Abdominal Exam Abdominal exam: Present: soft, Non-Tender. Absent: tenderness, distention, guarding, rebound, rigidity - Extremities Exam Extremities exam: Present: normal inspection, full ROM. Absent: tenderness, pedal edema - Expanded Upper Extremity Exam Shoulder exam: Present: normal inspection, full ROM Arm exam: Present: normal inspection, full ROM Elbow exam: Present: normal inspection, full ROM Forearm/Wrist exam: Present: normal inspection, full ROM Hand exam: Present: normal inspection, full ROM Vascular exam: Normal: capillary refill, radial pulse - Expanded Lower Extremity Exam Hip/Pelvis exam: Present: normal inspection, full ROM Upper leg exam: Present: normal inspection, full ROM Knee exam: Present: normal inspection, full ROM Lower leg exam: Present: normal inspection, full ROM Ankle exam: Present: normal inspection, full ROM Foot/toe exam: Present: normal inspection, full ROM Neurovascular/Tendon exam: Absent: motor deficit, sensory deficit, tendon deficit - Back Exam Back exam: Present: normal inspection, full ROM. Absent: tenderness - Neurological Exam Neurological exam: Present: alert, oriented X3 - Expanded Neurological Exam Patient oriented to: Present: person, place, time Coma Scale Eye Opening: Spontaneous Coma Scale Motor Response: Obeys Commands Coma Scale Verbal Response: Oriented Coma Scale Total: 15 - Psychiatric Psychiatric exam: Present: normal affect, normal mood - Skin Skin exam: Present: warm, dry, intact, normal color Course - Consultations Consultation #1: Dr. Dalton patient's oncologist would like her placed in the hospital blood cultures 24-hour mission and add vancomycin Time: 15:42 Vital Signs Temperature 98.6 F 04/24/17 13:57 Pulse Rate 107 04/24/17 13:57 Respiratory Rate 18 04/24/17 13:57 Blood Pressure 113/76 04/24/17 13:57 O2 Sat by Pulse Oximetry 96 04/24/17 13:57 Temperature 98.6 F 04/24/17 13:57 Pulse Rate 90 04/24/17 15:00 Respiratory Rate 20 04/24/17 14:30 Blood Pressure 116/84 04/24/17 15:00 O2 Sat by Pulse Oximetry 98 04/24/17 14:33 Oxygen Delivery Oxygen Delivery Room Air Fever - Medical Records Medical records reviewed: Yes I reviewed the patient's medical records. - Lab Data Lab results reviewed: Yes I reviewed the patient's lab results. Result diagrams: 04/24/17 14:56 04/24/17 14:56 Lab Results 04/24/17 04/24/17 04/24/17 Range/Units 14:56 14:56 14:56 WBC 3.4 L (4.3-11.1) K/mcL RBC 3.79 L (3.82-4.97) M/mcL Hgb 11.1 L (11.5-15.4) g/dL Hct 35.6 (35.3-44.9) % MCV 93.9 (83.0-100.0) fL MCH 29.3 (28.0-33.3) pg MCHC 31.2 L (31.6-35.5) g/dL RDW 22.5 H (11.5-14.5) % Plt Count 118 L (140-400) K/mcL MPV 10.5 (9.4-12.4) fL Immature Gran % 1.5 (0-4) % Seg Neutrophils % 57.8 % Lymphocytes % 28.9 % Monocytes % 9.4 % Eosinophils % 0.6 % Basophils % 1.8 % Neutrophils # 2.0 (1.6-8.9) K/mcL Lymphocytes # 1.0 (0.6-4.6) K/mcL Monocytes # 0.3 (0.0-1.3) K/mcL Eosinophils # 0.0 (0.0-0.6) K/mcL Basophils # 0.1 (0.0-0.2) K/mcL PT 11.1 (9.4-12.1) Seconds INR 1.0 APTT 41.3 H (26.0-36.0) Seconds Sodium 133 L (136-145) mEq/L Potassium 3.7 (3.5-4.5) mEq/L Chloride 100 (98-109) mEq/L Carbon Dioxide 28 (19-29) mEq/L BUN 7 (7-20) mg/dL Creatinine 0.68 (0.57-1.11) mg/dL Est GFR ( Amer) > 60 (> 60) Est GFR (Non-Af Amer) > 60 (> 60) BUN/Creatinine Ratio 10 (6-26) Glucose 117 H (70-99) mg/dL Calculated Osmolality 275 L (280-300) Lactic Acid (0.5-2.2) mmol/L Calcium 8.8 (8.6-10.8) mg/dL Total Bilirubin 0.4 (0.2-1.2) mg/dL Direct Bilirubin 0.2 (0.0-0.5) mg/dL Indirect Bilirubin 0.2 (0.0-1.2) mg/dL AST 40 H (5-34) Units/L ALT 37 (0-55) Units/L Alkaline Phosphatase 168 H (38-126) Units/L Serum Total Protein 5.8 L (6.0-8.3) g/dL Albumin 2.9 L (3.5-5.0) g/dL Globulin 2.9 (2.4-3.5) g/dL Albumin/Globulin Ratio 1.0 L (1.1-2.2) Urine Color (Yellow) Urine Clarity (Clear) Urine pH (5.0-8.0) pH Units Ur Specific [place] (1.010-1.025) Urine Protein (Neg-Trace) mg/dL Urine Glucose (UA) (Normal) mg/dL Urine Ketones (Negative) mg/dL Urine Blood (Negative) Urine Nitrite (Negative) Urine Bilirubin (Negative) Urine Urobilinogen (Normal) mg/dL Ur Leukocyte Esterase (Negative) Ur Culture Indicated? (NO) 04/24/17 04/24/17 Range/Units 14:56 15:20 WBC (4.3-11.1) K/mcL RBC (3.82-4.97) M/mcL Hgb (11.5-15.4) g/dL Hct (35.3-44.9) % MCV (83.0-100.0) fL MCH (28.0-33.3) pg MCHC (31.6-35.5) g/dL RDW (11.5-14.5) % Plt Count (140-400) K/mcL MPV (9.4-12.4) fL Immature Gran % (0-4) % Seg Neutrophils % % Lymphocytes % % Monocytes % % Eosinophils % % Basophils % % Neutrophils # (1.6-8.9) K/mcL Lymphocytes # (0.6-4.6) K/mcL Monocytes # (0.0-1.3) K/mcL Eosinophils # (0.0-0.6) K/mcL Basophils # (0.0-0.2) K/mcL PT (9.4-12.1) Seconds INR APTT (26.0-36.0) Seconds Sodium (136-145) mEq/L Potassium (3.5-4.5) mEq/L Chloride (98-109) mEq/L Carbon Dioxide (19-29) mEq/L BUN (7-20) mg/dL Creatinine (0.57-1.11) mg/dL Est GFR ( Amer) (> 60) Est GFR (Non-Af Amer) (> 60) BUN/Creatinine Ratio (6-26) Glucose (70-99) mg/dL Calculated Osmolality (280-300) Lactic Acid 1.0 (0.5-2.2) mmol/L Calcium (8.6-10.8) mg/dL Total Bilirubin (0.2-1.2) mg/dL Direct Bilirubin (0.0-0.5) mg/dL Indirect Bilirubin (0.0-1.2) mg/dL AST (5-34) Units/L ALT (0-55) Units/L Alkaline Phosphatase (38-126) Units/L Serum Total Protein (6.0-8.3) g/dL Albumin (3.5-5.0) g/dL Globulin (2.4-3.5) g/dL Albumin/Globulin Ratio (1.1-2.2) Urine Color Yellow (Yellow) Urine Clarity Clear (Clear) Urine pH 7.5 (5.0-8.0) pH Units Ur Specific [place] 1.015 (1.010-1.025) Urine Protein Negative (Neg-Trace) mg/dL Urine Glucose (UA) Normal (Normal) mg/dL Urine Ketones Negative (Negative) mg/dL Urine Blood Negative (Negative) Urine Nitrite Negative (Negative) Urine Bilirubin Negative (Negative) Urine Urobilinogen Normal (Normal) mg/dL Ur Leukocyte Esterase Negative (Negative) Ur Culture Indicated? NO (NO) - Radiology Data Radiology results reviewed: Yes I reviewed the patient's radiology results.
[2017-04-24] MEDS ORDERED: Naloxone 0.4 MG/ML INJ IVP PRN (17:11)
[2017-04-24] MEDS ORDERED: Ondansetron 4 MG/2 ML VIAL IVP PRN (17:11)
[2017-04-24] MEDS ORDERED: Acetaminophen 325 MG TABLET PO PRN (17:11)
--- NOTE | 2017-04-24 17:35 | Internal Med History&Physical ---
<Stacey Antoine M - Last Filed: 04/24/17 17:43> Date of Encounter: 04/24/17 Time of Encounter: 17:30 Assessment and Plan (1) Fever Current visit: Yes Status: Acute Patient reports fever of 100.9 and 101.4 at home today. She has CLL and has had multiple infections over the past 6 months, most recently had hospitalizations for a UTI here last month and sepsis with pneumonia at [facility] more recently. She was discharged on Zosyn IVPB from [facility]. She was instructed to monitor her temperature daily and call her oncologist for any fever. Dr. Garcia instructed her to go to ED for today's fever. She was afebrile on presentation. CXR showed no new parenchymal opacity. UA was negative for infection. Blood cultures drawn and sent. Will continue zosyn and add vanc. Monitor VS Q4hr. 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 She continues on Valcyte prophylaxis 450mg BID, plan is to continue until she has 4 consecutive negative titers. Will check CMV PCR with morning labs. (3) History of DVT (deep vein thrombosis) Current visit: Yes Status: Acute Patient with history of DVT and is on weight based lovenox BID. Continue weight based lovenox BID. (4) CLL (chronic lymphocytic leukemia) Current visit: Yes Status: Chronic Patient has CLL and follows with Dr. Garcia in the [facility]. She gets IVIG monthly for hypogammaglobulinemia. She has had trouble with multiple infections in the last 6-8 months, with severe CMV infection requiring 3 month stay at [facility] in the Spring and recent hospitalizations for UTI and Pneumonia. We will consult oncology. (5) Long-term use of high-risk medication Current visit: Yes Status: Chronic Patient is on weight based lovenox for history of DVT and afib. No signs or symptoms of bleeding. She is also on valcyte for CMV treatment/prophylaxis. She is not severely neutropenic or anemic. (6) Atrial fibrillation Current visit: Yes Status: Chronic Patient has history of afib. She is on lovenox for anticoagulation. Not on anything for rate control. Continue lovenox. Check VS q4hr. Qualifiers: Atrial fibrillation type: paroxysmal Qualified Code(s): I48.0 - Paroxysmal atrial fibrillation (7) DVT prophylaxis Current visit: Yes Status: Acute anti-embolic stockings Patient on lovenox for history of DVT. additional pharmacologic prophylaxis not indicated. Internal Medicine - H&P: HPI Chief complaint: fever Admitted From: Emergency Dept Plans for Post Hospital Care: Home History of present illness: Ms. Fish is a 71 year old female with hypertension, hyperlipidemia, rheumatoid arthritis, seizure disorder, DVT on lovenox, hypothyroid, history of breast cancer status post surgical treatment, atrial fibrillation, CLL presents to the emergency department today at the instruction of her oncologist for fever at home. Patient reports her fever was measured at home at 101.4. Patient has recent history of multiple infections and hospitalizations. She was initiated on chemotherapy early in the year but it had to be stopped due to his severe CMV colitis and CMV infection requiring a 3 month stay at [facility] in the spring, she continues on Valcyte.. Last month she was hospitalized here with UTI. She was recently discharged from [facility] for severe pneumonia and sent home on IV Zosyn. She was instructed to monitor her temperature and inform her oncologist of any fever. Today she had a fever of 101.4, and DrAmanda Gaffney, who instructed her to go to the emergency department. Patient denies any lightheadedness, headache, chest pain, shortness breath, cough, nausea, vomiting , abdominal pain, diarrhea, dysuria. She reports chills and sweats, however she reports these are chronic. Evaluation in emergency department revealed temperature 98.6, she was mildly tachycardic with heart rate in the 90s. Lactate was normal at 1.0. Chest x-ray showed no new parenchymal opacity. Urinalysis was negative for infection. On exam, patient is alert and oriented, in no acute distress. Heart has a regular rhythm with normal rate. Lungs are clear bilaterally to auscultation. Abdomen is soft, nontender with positive bowel sounds. No peripheral edema. Past Med Surg Social Fam HX - Past Medical History Medical history: atrial fibrillation, cancer (breast cancer s/p surgical treatment. CLL), DVT, hyperlipidemia, hypertension, RA, seizures, thyroid disease, other Psychiatric history: no psych history - Past Surgical History Surgical History: cancer surgery (mastectomy) - Social History Smoking Status: Never smoker Smokeless Tobacco Status: No Alcohol use: none Drug use: none - Family History Mother Living Status: Age at : 90 Father Living Status: Hx Family Cancer: Yes (leukemia) Internal Medicine - H&P: Meds Omeprazole [PriLOSEC] 20 mg PO DAILY 10 Days 11/18/16 [Rx] Gabapentin [Neurontin] 100 mg PO BID #60 capsule 03/17/17 [Rx] Pravastatin Sodium [Pravachol] 80 mg PO HS #30 03/17/17 [Rx] Enoxaparin [Lovenox] 70 mg SQ Q12HR 03/19/17 [History] Lidocaine/Prilocaine CREAM [Emla] 1 appl TP AD PRN 03/19/17 [History] Nystatin [Nystatin Suspension] 500,000 units PO QID #400 ml 03/31/17 [Rx] levETIRAcetam [Levetiracetam] 1,000 mg PO BID 04/12/17 [History] Levothyroxine [Synthroid] 100 mcg PO QPM 04/24/17 [History] Cwkzetztysoz-Emau-Jvywvzjo,Iso [Zosyn 4.5 gm/100 ml Galaxy Bag] 4.5 gm IV Q8H [History] Valganciclovir HCl [Valcyte] 450 mg PO BID 04/24/17 [History] 3 Allergy/AdvReac Type Severity Reaction Status Date / Time No Known Allergies Allergy Verified 04/24/17 14:01 All Systems PM: A 10-system review of systems was performed and is negative for pertinent findings except as documented above in the HPI. - Constitutional Constitutional: chills, night sweats, no fever(s) - EENT Eyes: no change in vision, no discharge, no pain, no photophobia Ears: no ear discharge, no ear pain, no tinnitus Nose, mouth and throat: no dysphagia, no nasal discharge, no neck pain, no sore throat - Cardiovascular Cardiovascular ROS IM: no chest pain, no diaphoresis, no dyspnea, no lightheadedness, no palpitations, no syncope - Respiratory Respiratory: no cough, no dyspnea, no wheezing, no excessive phlegm production - Gastrointestinal Gastrointestinal: no abdominal pain, no diarrhea, no hematemesis, no hematochezia, no melena, no nausea, no vomiting - Genitourinary Genitourinary: no change in urinary stream, no dysuria, no flank pain, no hematuria - Musculoskeletal Musculoskeletal ROS IM: no numbness, no tingling - Integumentary Integumentary IM: no rash, no unusual bruising - Neurological Neurological ROS: no confusion, no convulsions, no focal weakness, no numbness, no tingling, no tremor(s) - Hematologic/Lymphatic Hematologic/Lymphatic: no easy bruising - Constitutional Vitals: Temp Pulse Resp BP Pulse Ox 98.6 F 88 20 129/78 97 04/24/17 13:57 04/24/17 15:30 04/24/17 16:38 04/24/17 16:38 04/24/17 15:30 General appearance: Present: A&O X 3, pleasant, no acute distress - Head Head exam: Present: atraumatic, normocephalic - Eye Eye exam: Present: PERRL, conjuntiva pink, sclera anicteric Pupils: Present: PERRL - Neck Neck exam general surgery: Present: supple, trachea midline. Absent: lymphadenopathy - Respiratory Respiratory exam: Present: CTAB. Absent: accessory muscle use, rales, rhonchi, wheezes - Cardiovascular Cardiovascular exam: Present: RRR, +S1, +S2. Absent: diastolic murmur, gallop, rubs, systolic murmur - GI/Abdominal GI/Abdominal exam: Present: normal bowel sounds, soft, no peritoneal signs. Absent: distended, tenderness - Extremities Exam Extremities exam: Present: warm, radial pulses palpable and symmetrical. Absent : calf tenderness, cyanotic, pedal edema - Neurological Exam Neurological exam: Present: CN II-XII intact, oriented X3, no focal deficits. Absent: pronater drift, facial droop, speech deficit - Skin Skin exam: Present: dry, intact Internal Med - H&P Results - Labs CBC & Chem 7: 04/24/17 14:56 04/24/17 14:56 Labs: All Lab Results (24 Hours) 04/24/17 04/24/17 04/24/17 Range/Units 14:56 14:56 14:56 WBC 3.4 L (4.3-11.1) K/mcL RBC 3.79 L (3.82-4.97) M/mcL Hgb 11.1 L (11.5-15.4) g/dL Hct 35.6 (35.3-44.9) % MCV 93.9 (83.0-100.0) fL MCH 29.3 (28.0-33.3) pg MCHC 31.2 L (31.6-35.5) g/dL RDW 22.5 H (11.5-14.5) % Plt Count 118 L (140-400) K/mcL MPV 10.5 (9.4-12.4) fL Immature Gran % 1.5 (0-4) % Seg Neutrophils % 57.8 % Lymphocytes % 28.9 % Monocytes % 9.4 % Eosinophils % 0.6 % Basophils % 1.8 % Neutrophils # 2.0 (1.6-8.9) K/mcL Lymphocytes # 1.0 (0.6-4.6) K/mcL Monocytes # 0.3 (0.0-1.3) K/mcL Eosinophils # 0.0 (0.0-0.6) K/mcL Basophils # 0.1 (0.0-0.2) K/mcL PT 11.1 (9.4-12.1) Seconds INR 1.0 APTT 41.3 H (26.0-36.0) Seconds Sodium 133 L (136-145) mEq/L Potassium 3.7 (3.5-4.5) mEq/L Chloride 100 (98-109) mEq/L Carbon Dioxide 28 (19-29) mEq/L BUN 7 (7-20) mg/dL Creatinine 0.68 (0.57-1.11) mg/dL Est GFR ( Amer) > 60 (> 60) Est GFR (Non-Af Amer) > 60 (> 60) BUN/Creatinine Ratio 10 (6-26) Glucose 117 H (70-99) mg/dL Calculated Osmolality 275 L (280-300) Lactic Acid (0.5-2.2) mmol/L Calcium 8.8 (8.6-10.8) mg/dL Total Bilirubin 0.4 (0.2-1.2) mg/dL Direct Bilirubin 0.2 (0.0-0.5) mg/dL Indirect Bilirubin 0.2 (0.0-1.2) mg/dL AST 40 H (5-34) Units/L ALT 37 (0-55) Units/L Alkaline Phosphatase 168 H (38-126) Units/L Serum Total Protein 5.8 L (6.0-8.3) g/dL Albumin 2.9 L (3.5-5.0) g/dL Globulin 2.9 (2.4-3.5) g/dL Albumin/Globulin Ratio 1.0 L (1.1-2.2) Urine Color (Yellow) Urine Clarity (Clear) Urine pH (5.0-8.0) pH Units Ur Specific [place] (1.010-1.025) Urine Protein (Neg-Trace) mg/dL Urine Glucose (UA) (Normal) mg/dL Urine Ketones (Negative) mg/dL Urine Blood (Negative) Urine Nitrite (Negative) Urine Bilirubin (Negative) Urine Urobilinogen (Normal) mg/dL Ur Leukocyte Esterase (Negative) Ur Culture Indicated? (NO) 04/24/17 04/24/17 Range/Units 14:56 15:20 WBC (4.3-11.1) K/mcL RBC (3.82-4.97) M/mcL Hgb (11.5-15.4) g/dL Hct (35.3-44.9) % MCV (83.0-100.0) fL MCH (28.0-33.3) pg MCHC (31.6-35.5) g/dL RDW (11.5-14.5) % Plt Count (140-400) K/mcL MPV (9.4-12.4) fL Immature Gran % (0-4) % Seg Neutrophils % % Lymphocytes % % Monocytes % % Eosinophils % % Basophils % % Neutrophils # (1.6-8.9) K/mcL Lymphocytes # (0.6-4.6) K/mcL Monocytes # (0.0-1.3) K/mcL Eosinophils # (0.0-0.6) K/mcL Basophils # (0.0-0.2) K/mcL PT (9.4-12.1) Seconds INR APTT (26.0-36.0) Seconds Sodium (136-145) mEq/L Potassium (3.5-4.5) mEq/L Chloride (98-109) mEq/L Carbon Dioxide (19-29) mEq/L BUN (7-20) mg/dL Creatinine (0.57-1.11) mg/dL Est GFR ( Amer) (> 60) Est GFR (Non-Af Amer) (> 60) BUN/Creatinine Ratio (6-26) Glucose (70-99) mg/dL Calculated Osmolality (280-300) Lactic Acid 1.0 (0.5-2.2) mmol/L Calcium (8.6-10.8) mg/dL Total Bilirubin (0.2-1.2) mg/dL Direct Bilirubin (0.0-0.5) mg/dL Indirect Bilirubin (0.0-1.2) mg/dL AST (5-34) Units/L ALT (0-55) Units/L Alkaline Phosphatase (38-126) Units/L Serum Total Protein (6.0-8.3) g/dL Albumin (3.5-5.0) g/dL Globulin (2.4-3.5) g/dL Albumin/Globulin Ratio (1.1-2.2) Urine Color Yellow (Yellow) Urine Clarity Clear (Clear) Urine pH 7.5 (5.0-8.0) pH Units Ur Specific [place] 1.015 (1.010-1.025) Urine Protein Negative (Neg-Trace) mg/dL Urine Glucose (UA) Normal (Normal) mg/dL Urine Ketones Negative (Negative) mg/dL Urine Blood Negative (Negative) Urine Nitrite Negative (Negative) Urine Bilirubin Negative (Negative) Urine Urobilinogen Normal (Normal) mg/dL Ur Leukocyte Esterase Negative (Negative) Ur Culture Indicated? NO (NO) - Diagnostic Studies Chest x-ray Additional comments: Chest X-Ray 04/24/17 14:28 IMPRESSION: 1. Left-sided PICC tip projects at the mid SVC. 2. No new parenchymal opacity. D/ / Von Charles MD / Von Charles MD Interpreting Provider: Von Charles MD <Paige Andujar - Last Filed: 04/24/17 18:42> Date of Encounter: 04/24/17 Internal Medicine - H&P: HPI History of present illness: Ms. Fish is a 71 year old female All Systems PM: A 10-system review of systems was performed and is negative for pertinent findings except as documented above in the HPI. - Constitutional Vitals: Temp Pulse Resp BP Pulse Ox 98.6 F 88 20 129/78 97 04/24/17 13:57 04/24/17 15:30 04/24/17 16:38 04/24/17 16:38 04/24/17 15:30 Internal Med - H&P Results - Labs CBC & Chem 7: 04/24/17 14:56 04/24/17 14:56 - Attending Attestation Pt seen and examined. Requested to come to the hospital by Dr. Newell and admitted for fever, given history of CLL and recurrent infections Will continue IV abx, f/u blood cultures Case discussed with ANGEL Antoine, I agree with her documented findings, assessment, and plan.
[2017-04-24] MEDS: Piperacillin/Tazobactam 3.375 GM VIAL IVPB SCH (18:20)
[2017-04-24] MEDS: *HR* Enoxaparin 80 MG/0.8 ML SYRINGE SQ SCH (18:20)
[2017-04-24] MEDS: levETIRAcetam 250 MG TABLET PO SCH (21:13)
[2017-04-24] MEDS: Nystatin SUSP 5 ML UD.LIQ PO SCH (21:13)
[2017-04-24] MEDS: Gabapentin 100 MG CAPSULE PO SCH (21:13)
[2017-04-24] MEDS: VALGANCICLOVIR HCL 450 MG PO SCH (21:14)
[2017-04-25] MEDS ORDERED: D5% in Water (Mini-Bag+) 100 ML IVPB ONE (01:29)
[2017-04-25] MEDS: Piperacillin/Tazobactam 3.375 GM in D5% in Water (Mini-Bag+) 100 ML IVPB SCH ×3 (01:38→18:15)
[2017-04-25] MEDS: Piperacillin/Tazobactam 3.375 GM VIAL IVPB SCH (01:39)
[2017-04-25 03:22] LABS: Basophils # 0.1 K/mcL (0.0-0.2); Basophils % 2.4 %; Eosinophils % 1.2 %; Hematocrit 33.5 % (35.3-44.9); Hemoglobin 10.3 g/dL (11.5-15.4); Immature Granulocytes % 3.3 % (0-4); Lymphocytes # 0.8 K/mcL (0.6-4.6); Lymphocytes % 33.1 %; Mean Corpuscular HGB Conc 30.7 g/dL (31.6-35.5); Mean Corpuscular Hemoglobin 28.9 pg (28.0-33.3); Mean Corpuscular Volume 93.8 fL (83.0-100.0); Mean Platelet Volume 11.3 fL (9.4-12.4); Monocytes # 0.3 K/mcL (0.0-1.3); Monocytes % 12.2 %; Neutrophils # 1.2 K/mcL (1.6-8.9); Platelet Count 124 K/mcL (140-400); Red Blood Count 3.57 M/mcL (3.82-4.97); Red Cell Distribution Width 22.5 % (11.5-14.5); Segmented Neutrophils % 47.8 %
[2017-04-25 03:32] LABS: BUN/Creatinine Ratio 8 (6-26); Blood Urea Nitrogen 5 mg/dL (7-20); Calcium 8.6 mg/dL (8.6-10.8); Carbon Dioxide 23 mEq/L (19-29); Chloride 103 mEq/L (98-109); Glucose 97 mg/dL (70-99); Osmolality,Calculated 275 (280-300); Potassium 3.5 mEq/L (3.5-4.5); Sodium 134 mEq/L (136-145); eGFR For African Americans > 60 (> 60); eGFR For Non-African Americans > 60 (> 60)
[2017-04-25] MEDS: *HR* Enoxaparin 80 MG/0.8 ML SYRINGE SQ SCH ×2 (05:35→18:13)
[2017-04-25] MEDS: Vancomycin 1,000 MG in D5% in Water 250 ML IVPB SCH ×2 (05:36→18:14)
[2017-04-25] MEDS: VALGANCICLOVIR HCL 450 MG PO SCH ×2 (10:00→20:05)
[2017-04-25] MEDS: Nystatin SUSP 5 ML UD.LIQ PO SCH ×4 (10:01→20:05)
[2017-04-25] MEDS: Gabapentin 100 MG CAPSULE PO SCH ×2 (10:01→20:05)
[2017-04-25] MEDS: levETIRAcetam 250 MG TABLET PO SCH ×2 (10:01→20:05)
--- NOTE | 2017-04-25 10:49 | Oncology Inp Consult Note ---
Date of Encounter: 04/25/17 Time of Encounter: 10:35 - Data of Consult Patient: known to practice within the last 3 years Consult date: 04/25/17 Requesting Physician: Laura Grossman Primary Care Provider: PCP NONE - Consult Narrative Reason for consult: CLL, hypogammaglobulinemia,Fever History of present illness: Ms. Fish is a 71 year old woman who is known to oncology for ongoing management of CLL and hypogammaglobulinemia. I have summarized her heme/onc background below based on my most recent office report from 03/26/17. Oncologic background: Breast cancer: In October of 2009, she had a routine mammogram done at [facility] and that showed a new right breast lesion. 12/19/2009, ultrasound-guided biopsy showed a grade 3 invasive ductal carcinoma, ER/HI positive, HER 2 negative, and size was 1.1 cm. She had partial mastectomy +SNLB which confirmed a 1cm, T1c N0, stage I right- sided breast cancer. She had adjuvant radiation. Her Oncotype recurrence score came back to be 18 with an intermediate recurrence risk and she declined chemotherapy. She received 5 years of endocrine therapy (Arimidex) from 02/26/2010 to January 2010. She was followed by Drs. Liam Ontiveros and Keadr Lim at [facility] but more recently has moved all of her care to [place] due to insurance changes. Most recent mammogram 02/04/16 showed stable posttreatment changes in the right breast. CLL: She also has a history of CLL that was diagnosed based on lymphocytosis on 07/23. Peripheral blood flow cytometry confirmed CLL. Cytogenetics and FISH showed trisomy 12 as well as 13 q deletion, all compatible with an intermediate risk prognostication. CT of the neck, chest, abdomen, pelvis 08/11/16 showed: Progressive adenopathy in the cervical, supraclavicular, axillary lymph node areas. Diffuse, progressive, bilateral adenopathy involving retroperitoneal, bilateral pelvic, retrocrural lymphadenopathy. She had a bone marrow biopsy 09/04/16 confirmed 75% involvement with a monoclonal B-cell population with core expression of CD5, CD23 and absence of CD10, FMC 7, CD38. Immunofluorescence team for CD20, lambda. Overall immunophenotype compatible with CLL. Absence of CD38 is a favorable prognostic indicator. CLL FISH analysis positive for trisomy 12 and 13q deletion also indicating a intermediate prognosis. Based on above, we recommended Rituxan day 1+ bendamustine day 1 day to every 28 days regimen x 4-6 cycles depending on response and tolerability. Treatment was started 09/16/16.Stopped after 2 cycles due to clinical decompensation. Most recent imaging: CT neck,chest,Abd,Pelvis 03/18/17: No adenopathy in the neck. Mild interval increase in mediastinal, retroperitoneal, left axillary lymphadenopathy suggesting mixed response to treatment. Largest lymph nodes: 1.1 cm left axillary and 2.4 cm retroperitoneal nodes. 2.2 cm right lower lobe cavitary lesion. No associated symptoms. Mild esophageal wall thickening. Possibly related to esophagitis. Bladder wall thickening. Possibly under distention. Cystitis is a concern. Bilateral lower extremity Doppler 03/18/17 was negative for residual clot. Chronic problems: Hypogammaglobulinemia: She has been on monthly IVIG since 05/28/16 for hypogammaglobinemia with IgG of lowest 355 and 12/16/16. She recently had EGD colonoscopy 03/04/[address] Fuller for evaluation of suspicious esophageal abnormalities on CT scan. EGD showed nonbleeding erosive gastropathy, esophagitis. Unremarkable otherwise. Colonoscopy showed diverticular disease in the sigmoid and descending colon. 2 mm descending colon polyp was a tubular adenoma. Osteopenia: She has been on Prolia every 6 months since 06/13/14. She is tolerated well with no unexpected side effects. She was hospitalized in October with uncontrolled atrial fibrillation in the setting of UTI with acute urinary retention + multiple electrolyte abnormalities which may be related to kidney dysfunction. Required bladder decompression with indwelling Pickett cath. per urology. He has chronic CMV viremia/colitis that required prolonged hospitalization at [facility] for close to 3 months. She is on valganciclovir and is established with infectious disease here as [place] for ongoing follow-up. Dr. Merino was kind enough to discuss patient's case with me on 03/04/2017 regarding treatment plan. We agree that if hypogammaglobulinemia he responds to ongoing high IVIG supplementation, we may be able to stop CMV prophylaxis in the future once he achieves negative titers. She was evaluated by Dr. Corral 03/03/17 and no evidence of CMV retinitis. He was kind enough to send me a copy of his consultation report which I reviewed for details. She does have some right eye cataract and he has recommended nonurgent management. I appreciate his input. Debility: Due to deconditioning from prolonged hospitalization in spring of 2016. She is making slow but steady recovery with physical therapy at home. She is now able to get around with a wheeled walker. Previously required wheelchair for mobility. Severe hyponatremia: Associated with seizure episode. Likely multifactorial in etiology. There is suspicion that CMV viremia may have contributed. Venous thromboembolism: Acute pulmonary embolism status post IVC filter placement 01/12/17. She is on Lovenox for this. Thrombophilia evaluation revealed a heterozygous state for factor V Leiden mutation. D-dimer is only slightly elevated on 02/17/17-571. Patient is currently hospitalized for unexplained fever with temperature as high as 101.4 at home. I spoke with her was primary caregiver over the phone yesterday and she had a rising fever from 100.4-101.5 which is why she was referred to the emergency room for evaluation and observation. Was recently hospitalized at [facility] and discharged on Zosyn which she is continuing. Additionally, she is been started on vancomycin since admission for broad-spectrum coverage. She is not having any febrile episodes since admission. Extensive fever workup including urinalysis, chest x-ray at [facility] in unremarkable for infectious etiology. Cultures have been sent and results is pending. Oncology is consulted re: fever in the setting of previous CLL diagnosis and immunocompromised state. Patient seen and examined at bedside. Chart reviewed for details of ongoing care by Hospital team which is much appreciated. Additionally, the hospital team was kind enough to discuss patient's case with me over the course of hospitalization regarding presentation and plan of care. Patient herself reports feeling well. She doesn't have any new symptoms today. He has been afebrile since admission. Rest of past medical, surgical, family, social history detailed below and verified with patient today. Review of systems: 12 point review of systems performed with patient and positive findings noted in history of present illness. All other systems are negative: Physical exam: Vital Signs Temp 98.4 F 04/25/17 07:13 Pulse 90 04/25/17 07:13 Resp 14 04/25/17 07:13 BP 119/75 04/25/17 07:13 Pulse Ox 94 04/25/17 07:13 GENERAL: Alert and oriented, chronically ill but comfortable appearing. Mental Status: Affect appropriate for circumstances HEENT: Sclerae anicteric. No mucositis or thrush. No other oral or pharyngeal lesions or erythema. Skin: No rashes or petechiae. No evidence of skin malignancy Lymph nodes: No cervical, supraclavicular, axillary, or inguinal adenopathy. Lungs: Clear to auscultation bilaterally. Clear to percussion bilaterally. Cardiovascular: Regular rate and rhythm. No gallops, murmurs, or rubs. Abdomen: Soft, nontender; No organomegaly or masses palpable. Extremities: No edema. No calf swelling or tenderness. No joint deformity. Neurologic: Alert, Ambulates with walker due to general debility; no focal weakness or sensory abnormalities. Results: Laboratory Last Values WBC 2.5 K/mcL (4.3-11.1) L 04/25/17 03:00 RBC 3.57 M/mcL (3.82-4.97) L 04/25/17 03:00 Hgb 10.3 g/dL (11.5-15.4) L 04/25/17 03:00 Hct 33.5 % (35.3-44.9) L 04/25/17 03:00 MCV 93.8 fL (83.0-100.0) 04/25/17 03:00 MCH 28.9 pg (28.0-33.3) 04/25/17 03:00 MCHC 30.7 g/dL (31.6-35.5) L 04/25/17 03:00 RDW 22.5 % (11.5-14.5) H 04/25/17 03:00 Plt Count 124 K/mcL (140-400) L 04/25/17 03:00 MPV 11.3 fL (9.4-12.4) 04/25/17 03:00 Immature Gran % 3.3 % (0-4) 04/25/17 03:00 Seg Neutrophils % 47.8 % 04/25/17 03:00 Lymphocytes % 33.1 % 04/25/17 03:00 Monocytes % 12.2 % 04/25/17 03:00 Eosinophils % 1.2 % 04/25/17 03:00 Basophils % 2.4 % 04/25/17 03:00 Neutrophils # 1.2 K/mcL (1.6-8.9) L 04/25/17 03:00 Lymphocytes # 0.8 K/mcL (0.6-4.6) 04/25/17 03:00 Monocytes # 0.3 K/mcL (0.0-1.3) 04/25/17 03:00 Eosinophils # 0.0 K/mcL (0.0-0.6) 04/25/17 03:00 Basophils # 0.1 K/mcL (0.0-0.2) 04/25/17 03:00 PT 11.1 Seconds (9.4-12.1) 04/24/17 14:56 INR 1.0 04/24/17 14:56 APTT 41.3 Seconds (26.0-36.0) H 04/24/17 14:56 Sodium 134 mEq/L (136-145) L 04/25/17 03:00 Potassium 3.5 mEq/L (3.5-4.5) 04/25/17 03:00 Chloride 103 mEq/L (98-109) 04/25/17 03:00 Carbon Dioxide 23 mEq/L (19-29) 04/25/17 03:00 BUN 5 mg/dL (7-20) L 04/25/17 03:00 Creatinine 0.61 mg/dL (0.57-1.11) 04/25/17 03:00 Est GFR ( Amer) > 60 (> 60) 04/25/17 03:00 Est GFR (Non-Af Amer) > 60 (> 60) 04/25/17 03:00 BUN/Creatinine Ratio 8 (6-26) 04/25/17 03:00 Glucose 97 mg/dL (70-99) 04/25/17 03:00 Calculated Osmolality 275 (280-300) L 04/25/17 03:00 Lactic Acid 1.1 mmol/L (0.5-2.2) 04/24/17 17:51 Calcium 8.6 mg/dL (8.6-10.8) 04/25/17 03:00 Total Bilirubin 0.4 mg/dL (0.2-1.2) 04/24/17 14:56 Direct Bilirubin 0.2 mg/dL (0.0-0.5) 04/24/17 14:56 Indirect Bilirubin 0.2 mg/dL (0.0-1.2) 04/24/17 14:56 AST 40 Units/L (5-34) H 04/24/17 14:56 ALT 37 Units/L (0-55) 04/24/17 14:56 Alkaline Phosphatase 168 Units/L (38-126) H 04/24/17 14:56 Serum Total Protein 5.8 g/dL (6.0-8.3) L 04/24/17 14:56 Albumin 2.9 g/dL (3.5-5.0) L 04/24/17 14:56 Globulin 2.9 g/dL (2.4-3.5) 04/24/17 14:56 Albumin/Globulin Ratio 1.0 (1.1-2.2) L 04/24/17 14:56 Urine Color Yellow (Yellow) 04/24/17 15:20 Urine Clarity Clear (Clear) 04/24/17 15:20 Urine pH 7.5 pH Units (5.0-8.0) 04/24/17 15:20 Ur Specific [place] 1.015 (1.010-1.025) 04/24/17 15:20 Urine Protein Negative mg/dL (Neg-Trace) 04/24/17 15:20 Urine Glucose (UA) Normal mg/dL (Normal) 04/24/17 15:20 Urine Ketones Negative mg/dL (Negative) 04/24/17 15:20 Urine Blood Negative (Negative) 04/24/17 15:20 Urine Nitrite Negative (Negative) 04/24/17 15:20 Urine Bilirubin Negative (Negative) 04/24/17 15:20 Urine Urobilinogen Normal mg/dL (Normal) 04/24/17 15:20 Ur Leukocyte Esterase Negative (Negative) 04/24/17 15:20 Ur Culture Indicated? NO (NO) 04/24/17 15:20 Radiographic studies: I personally reviewed and interpreted patient's most recent imaging studies dated 04/24/17. I discussed the findings with the patient today. Chest X-Ray 04/24/17 14:28 IMPRESSION: 1. Left-sided PICC tip projects at the mid SVC. 2. No new parenchymal opacity. D/ / Von Charles MD / Von Charles MD Interpreting Provider: Von Charles MD Impression/recommendations: Unexplained fever: She was recently hospitalized at [facility] for pneumonia and has been on outpatient antibiotics with Zosyn. Current hospitalization with unexplained fever as high as 101.5 degrees Fahrenheit has been unremarkable. Workup so far has not revealed any obvious underlying infectious source for her fever. Cultures are pending but she's been afebrile since admission. Based on above, I think we can discuss it antibiotic regimen and discharged to continue Zosyn as you've been doing previously. Fever may also be drug fever due to valganciclovir that she's been on for the last several months. She already has an outpatient follow-up with me on 04/27/17 and I'm happy to monitor her cultures and make further recommendations based on results. Regarding her CLL: Chemotherapy has been on hold for the last several months due to clinical decompensation. Fortunately, her disease appears to be under fairly good control and no indication of CLL progression or contribution to her current presentation. Hypogammaglobulinemia: She is at risk for opportunistic infection based on hypogammaglobulinemia which is attributed to CLL and previous immunosuppressive therapy. She is receiving monthly IVIG infusions and her last Ig panel from 03/17/17 was okay. No acute intervention needed and will simply continue monthly IVIG as we are doing. We'll follow the patient peripherally with you during this hospitalization. Please call with interval questions. Thank you for your excellent ongoing care for allowing us to see her while in- house. Past Med Surg Social Fam HX - Past Medical History Medical history: atrial fibrillation, cancer (breast cancer s/p surgical treatment. CLL), DVT, hyperlipidemia, hypertension, RA, seizures, thyroid disease, other Psychiatric history: no psych history - Past Surgical History Surgical History: cancer surgery (mastectomy) - Social History Smoking Status: Never smoker Smokeless Tobacco Status: No Alcohol use: none Drug use: none - Family History Mother Living Status: Age at : 90 Cause of : "OLD AGE" Hx Family Cardiac Disorders: Yes Hx Family Respiratory Disorders: Yes Hx Family Cancer: Yes Hx Family GI Disorders: No Hx Family Genitourinary Disorders: No Hx Family Endocrine Disorder: No Hx Family Musculoskeletal Disorders: No Hx Family Neuromuscular Disorders: No Hx Family Neurologic Disorders: No Hx Family HEENT Disorders: No Hx Family Autoimmune Disorders: No Hx Family Reproductive Disorders: No Hx Family Psychosocial Disorders: No Hx Family Medical Disorders: No Father Adopted: No Living Status: Age at : 66 Cause of : LEUKEMIA Hx Family Cardiac Disorders: Yes Hx Family Respiratory Disorders: Yes Hx Family Cancer: Yes (leukemia) Hx Family GI Disorders: No Hx Family Genitourinary Disorders: No Hx Family Endocrine Disorder: No Hx Family Musculoskeletal Disorders: No Hx Family Neuromuscular Disorders: No Hx Family Neurologic Disorders: No Hx Family HEENT Disorders: No Hx Family Autoimmune Disorders: No Hx Family Reproductive Disorders: No Hx Family Psychosocial Disorders: No Hx Family Medical Disorders: No Medications and Allergies Omeprazole [PriLOSEC] 20 mg PO DAILY 10 Days 11/18/16 [Rx] Gabapentin [Neurontin] 100 mg PO BID #60 capsule 03/17/17 [Rx] Pravastatin Sodium [Pravachol] 80 mg PO HS #30 03/17/17 [Rx] Enoxaparin [Lovenox] 70 mg SQ Q12HR 03/19/17 [History] Lidocaine/Prilocaine CREAM [Emla] 1 appl TP AD PRN 03/19/17 [History] Nystatin [Nystatin Suspension] 500,000 units PO QID #400 ml 03/31/17 [Rx] levETIRAcetam [Levetiracetam] 1,000 mg PO BID 04/12/17 [History] Levothyroxine [Synthroid] 100 mcg PO QPM 04/24/17 [History] Lkjduevvqbaf-Hqck-Zqrtdoaf,Iso [Zosyn 4.5 gm/100 ml Galaxy Bag] 4.5 gm IV Q8H [History] Valganciclovir HCl [Valcyte] 450 mg PO BID 04/24/17 [History] 3 Allergy/AdvReac Type Severity Reaction Status Date / Time No Known Allergies Allergy Verified 04/24/17 14:01 Oncology - Exam - Constitutional Vitals: Temp Pulse Resp BP Pulse Ox 98.4 F 90 14 119/75 94 04/25/17 07:13 04/25/17 07:13 04/25/17 07:13 04/25/17 07:13 04/25/17 07:13 Oncology - Results Labs: Short CBC 04/25/17 Range/Units 03:00 WBC 2.5 L (4.3-11.1) K/mcL Hgb 10.3 L (11.5-15.4) g/dL Hct 33.5 L (35.3-44.9) % Plt Count 124 L (140-400) K/mcL Neutrophils # 1.2 L (1.6-8.9) K/mcL BMP 04/25/17 03:00 Sodium 134 L Potassium 3.5 Chloride 103 Carbon Dioxide 23 BUN 5 L Creatinine 0.61 Glucose 97 Calcium 8.6 Consult Discharge Plan - Plan Referrals: NONE,PCP [Primary Care Provider] -
--- NOTE | 2017-04-25 12:23 | Discharge Summary ---
Date of Encounter: 04/26/17 Time of Encounter: 09:00 - Discharge Diagnosis (1) Neutropenic fever Priority: Primary Status: Acute Comments: Patient was intermittently febrile while admitted. Chest x-ray negative. Urinalysis negative. Blood cultures negative 2. Seen and evaluated by oncology who cleared her for outpatient follow-up 1 day after discharge. We will continue IV Zosyn outpatient (2) Neutropenia Priority: Secondary Status: Chronic Comments: Chronic, follow-up outpatient Qualifiers: Neutropenia type: other Qualified Code(s): D70.8 - Other neutropenia (3) Anemia Priority: Secondary Status: Chronic Comments: Mild, stable, follow-up outpatient (4) HTN (hypertension) Priority: Secondary Status: Chronic Comments: Controlled, follow-up outpatient Qualifiers: Hypertension type: essential hypertension Qualified Code(s): I10 - Essential (primary) hypertension (5) Hypothyroidism Priority: Secondary Status: Chronic Comments: TSH checked 2 months ago, normal, continued follow-up outpatient Qualifiers: Hypothyroidism type: unspecified Qualified Code(s): E03.9 - Hypothyroidism , unspecified (6) History of CMV Priority: Secondary Status: Chronic Comments: Still taking Valcyte. Repeat lab pending at time of discharge. Cleared for outpatient followup per Oncology. (7) History of DVT (deep vein thrombosis) Priority: Secondary Status: Chronic Comments: continue Lovenox; no new symptoms (8) CLL (chronic lymphocytic leukemia) Priority: Secondary Status: Chronic Comments: Seen and evaluated by oncology who cleared her for outpatient follow-up 1 day after discharge (9) Hyponatremia Priority: Secondary Status: Chronic Comments: Mild, chronic, stable, associated with mild hypo-osmolality as well. (10) Atrial fibrillation Priority: Secondary Status: Chronic Comments: Rate controlled, on Lovenox Qualifiers: Atrial fibrillation type: paroxysmal Qualified Code(s): I48.0 - Paroxysmal atrial fibrillation (11) DVT prophylaxis Priority: Primary Status: Acute Comments: On Lovenox at home - Discharge Medications Home Medications: Omeprazole [PriLOSEC] 20 mg PO DAILY 10 Days 11/18/16 [Rx] Gabapentin [Neurontin] 100 mg PO BID #60 capsule 03/17/17 [Rx] Pravastatin Sodium [Pravachol] 80 mg PO HS #30 03/17/17 [Rx] Enoxaparin [Lovenox] 70 mg SQ Q12HR 03/19/17 [History] Lidocaine/Prilocaine CREAM [Emla] 1 appl TP AD PRN 03/19/17 [History] Nystatin [Nystatin Suspension] 500,000 units PO QID #400 ml 03/31/17 [Rx] levETIRAcetam [Levetiracetam] 1,000 mg PO BID 04/12/17 [History] Levothyroxine [Synthroid] 100 mcg PO QPM 04/24/17 [History] Kdfsiwcywsed-Riyz-Gyoxeobu,Iso [Zosyn 4.5 gm/100 ml Galaxy Bag] 4.5 gm IV Q8H [History] Valganciclovir HCl [Valcyte] 450 mg PO BID 04/24/17 [History] Acetaminophen [Tylenol] 650 mg PO Q6HR PRN tab 04/26/17 [Rx] Allergies/Adverse Reactions: 3 Allergy/AdvReac Type Severity Reaction Status Date / Time No Known Allergies Allergy Verified 04/24/17 14:01 Date of admission: 04/24/17 16:20 Primary care physician: PCP NONE Consults: 04/24/17 17:58 Consult to Oncology [CONS] Routine Consulting Provider: On[facility] Reason for Consult: 71F with CLL, patient of Dr. Garcia, sent to ED for Fever. Call Completed: No Discharging clinician: Laura Martin Anticipated date of discharge: 04/26/17 (close f/u Dr Garcia 04/27) - Patient Status Disposition: Home Health Service Condition: Fair Functional capacity at discharge: independent ambulation Overall status at discharge: patient is back to baseline - Discharge Instructions Follow Up With: Fabián Garcia MD [Partnered Physician] - Flaquito Church DO [Non-Partnered Physician] - Additional Instructions: Followup with Primary care provider in one to 2 weeks, follow-up with oncologist tomorrow. Take 650mg of acetaminophen every 6-8 hours for your fever. - Diet and Activity Activity: increase activity as tolerated Diet: advance to your usual diet Hospital course: Ms. Fish is a 71 year old female with past medical history of hypertension, hyperlipidemia, RA, seizure disorder, DVT on Lovenox, hypothyroidism, history of breast cancer status post mastectomy, atrial fibrillation, CLL. Patient presented to the emergency department at the instruction of her oncologist for chief complaint of fever at home. Patient stating her fever home was measured at 101.4. Of note, patient with recent history of multiple infections and hospitalizations. She was initiated on chemotherapy earlier this year but it had to be stopped due to severe CMV colitis and CMV infection requiring three- month inpatient stay at [facility] in the spring, and she is still on Valcyte for this. Last month, she was hospitalized here at [facility] with a urinary tract infection. She was also recently discharged from [facility] for severe pneumonia and sent home on IV Zosyn which she is still taking. She was instructed to monitor her temperature and inform her oncologist of any fevers. She started with a fever on the day of presentation and was instructed to go to the emergency department. Patient denied any lightheadedness, headache, chest pain, shortness of breath, cough, nausea vomiting or abdominal pain. She denied dysuria. She denied diarrhea. She did endorse chills and sweats but states these are chronic for her. Workup in the emergency department unremarkable. Patient was intermittently febrile during this admission. No lactic acidosis. Chest x-ray negative. Urinalysis negative for signs of infection. She was admitted to the hospitalist service for further evaluation and management. Patient remained asymptomatic and tolerated a regular diet. She was seen and evaluated by oncology who cleared her for outpatient follow-up 1 day following discharge on 04/27/[address] Garcia. Blood cultures were negative 2 during this admission. She was discharged home in stable condition with close outpatient follow-up with her oncologist tomorrow. ITS Impressions Chest X-Ray 04/24/17 14:28 IMPRESSION: 1. Left-sided PICC tip projects at the mid SVC. 2. No new parenchymal opacity. D/ / Von Charles MD / Von Charles MD Interpreting Provider: Von Charles MD - Time Spent with Patient Total time spent providing and/or coordinating discharge services: - Constitutional Vitals: Temp Pulse Resp BP Pulse Ox 100.1 F H 93 14 117/60 95 04/25/17 11:18 08/27/17 11:18 04/25/17 11:18 04/25/17 11:18 04/25/17 11:18 General appearance: Present: A&O X 3, pleasant, no acute distress, answers questions appropriately - Head Head exam: Present: atraumatic, normocephalic - Eye Eye exam: Present: PERRL, conjuntiva pink, sclera anicteric Pupils: Present: PERRL - Neck Neck exam general surgery: Present: supple, trachea midline. Absent: lymphadenopathy - Respiratory Respiratory exam: Present: CTAB. Absent: accessory muscle use, rales, respiratory distress, rhonchi, wheezes - Cardiovascular Cardiovascular exam: Present: RRR, +S1, +S2. Absent: diastolic murmur, gallop, rubs, systolic murmur - GI/Abdominal GI/Abdominal exam: Present: normal bowel sounds, soft, no peritoneal signs. Absent: distended, tenderness - Extremities Exam Extremities exam: Present: warm, radial pulses palpable and symmetrical. Absent : calf tenderness, cyanotic, pedal edema - Neurological Exam Neurological exam: Present: alert, CN II-XII intact, oriented X3, no focal deficits, strengths equal and symetr throughout. Absent: pronater drift, facial droop, speech deficit - Skin Skin exam: Present: dry, intact, pallor, warm
--- NOTE | 2017-04-25 12:34 | Internal Med Progress Note ---
Date of Encounter: 04/25/17 Time of Encounter: 08:30 (and 1200) - Assessment and plan (1) Neutropenic fever Current Visit: No Status: Acute Assessment and plan: Patient had been afrebile since presentation so the initial plan was to send the patient home with close outpatient follow-up for oncology however updated vital signs revealing temperature 100.1. We will keep her overnight and observe her. Unclear etiology could be secondary to medications. Chest x-ray negative. Urinalysis negative. She is on vancomycin and Zosyn. Was on Zosyn which will likely be continued upon discharge. CMV and blood cultures pending ITS Impressions Chest X-Ray 04/24/17 14:28 IMPRESSION: 1. Left-sided PICC tip projects at the mid SVC. 2. No new parenchymal opacity. D/ / Von Charles MD / Von Charles MD Interpreting Provider: Von Charles MD (2) Neutropenia Current Visit: No Status: Chronic Assessment and plan: stable, will trend (3) Anemia Current Visit: No Status: Chronic Assessment and plan: Mild, stable, chronic, we will trend (4) HTN (hypertension) Current Visit: No Status: Chronic Assessment and plan: Controlled, will continue to trend and adjust medications as indicated Qualifiers: Hypertension type: essential hypertension Qualified Code(s): I10 - Essential (primary) hypertension (5) Hypothyroidism Current Visit: No Status: Chronic Assessment and plan: TSH checked 2 months ago, normal (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 (7) History of DVT (deep vein thrombosis) Current Visit: Yes Status: Chronic Assessment and plan: Continued her home Lovenox therapy (8) CLL (chronic lymphocytic leukemia) Current Visit: No Status: Chronic Assessment and plan: She has been seen by her oncologist Dr. Garcia. Initial plan was to send her home with outpatient follow-up with him on 04/27/17 however her temperature is trending up, will observe overnight (9) Hyponatremia Current Visit: No Status: Chronic Assessment and plan: Mild, chronic, stable, associated with hyperosmolality. Patient admits to decreased by mouth intake which is chronic for her. (10) Atrial fibrillation Current Visit: Yes Status: Chronic Assessment and plan: Rate controlled, on subcutaneous Lovenox therapy at home Qualifiers: Atrial fibrillation type: paroxysmal Qualified Code(s): I48.0 - Paroxysmal atrial fibrillation (11) DVT prophylaxis Current Visit: Yes Status: Acute Assessment and plan: On Lovenox at home - Subjective Interval history: Patient seen and examined. This morning, patient was alert and oriented 3 and denied pain or shortness of breath. She stated that she really wanted to go home and endorsed a relatively normal appetite-she states that she does not eat very much but this is chronic for her. She denies any nausea or vomiting. Patient seen and reexamined later on in the morning and she remained asymptomatic. - Constitutional Vitals: Temp Pulse Resp BP Pulse Ox 100.1 F H 93 14 117/60 95 04/25/17 11:18 04/25/17 11:18 04/25/17 11:18 04/25/17 11:18 04/25/17 11:18 General appearance: Present: A&O X 3, pleasant, no acute distress, answers questions appropriately - Head Head exam: Present: atraumatic, normocephalic - Eye Eye exam: Present: PERRL, conjuntiva pink, sclera anicteric Pupils: Present: PERRL - Neck Neck exam general surgery: Present: supple, trachea midline. Absent: lymphadenopathy - Respiratory Respiratory exam: Present: CTAB. Absent: accessory muscle use, rales, respiratory distress, rhonchi, wheezes - Cardiovascular Cardiovascular exam: Present: RRR, +S1, +S2. Absent: diastolic murmur, gallop, rubs, systolic murmur - GI/Abdominal GI/Abdominal exam: Present: normal bowel sounds, soft, no peritoneal signs. Absent: distended, tenderness - Extremities Exam Extremities exam: Present: warm, radial pulses palpable and symmetrical. Absent : calf tenderness, cyanotic, pedal edema - Neurological Exam Neurological exam: Present: alert, CN II-XII intact, oriented X3, no focal deficits, strengths equal and symetr throughout. Absent: pronater drift, facial droop, speech deficit - Skin Skin exam: Present: dry, intact, pallor, warm Internal Medicine: Result - Labs CBC & Chem 7: 04/25/17 03:00 04/25/17 03:00 Labs: Short CBC 04/25/17 Range/Units 03:00 WBC 2.5 L (4.3-11.1) K/mcL Hgb 10.3 L (11.5-15.4) g/dL Hct 33.5 L (35.3-44.9) % Plt Count 124 L (140-400) K/mcL Neutrophils # 1.2 L (1.6-8.9) K/mcL BMP 04/25/17 03:00 Sodium 134 L Potassium 3.5 Chloride 103 Carbon Dioxide 23 BUN 5 L Creatinine 0.61 Glucose 97 Calcium 8.6 - ABG Interpretation ABG results: PT/INR, D-dimer PT 11.1 Seconds (9.4-12.1) 04/24/17 14:56 Consult Discharge Plan - Plan Referrals: NONE,PCP [Primary Care Provider] -
[2017-04-26] MEDS: Piperacillin/Tazobactam 3.375 GM in D5% in Water (Mini-Bag+) 100 ML IVPB SCH ×2 (02:07→10:02)
[2017-04-26 03:24] LABS: Basophils # 0.1 K/mcL (0.0-0.2); Basophils % 2.7 %; Eosinophils % 0.9 %; Hematocrit 34.9 % (35.3-44.9); Immature Granulocytes % 0.9 % (0-4); Lymphocytes # 1.1 K/mcL (0.6-4.6); Lymphocytes % 32.5 %; Mean Corpuscular HGB Conc 31.5 g/dL (31.6-35.5); Mean Corpuscular Hemoglobin 29.3 pg (28.0-33.3); Mean Corpuscular Volume 92.8 fL (83.0-100.0); Mean Platelet Volume 9.9 fL (9.4-12.4); Monocytes # 0.5 K/mcL (0.0-1.3); Monocytes % 14.5 %; Neutrophils # 1.6 K/mcL (1.6-8.9); Platelet Count 135 K/mcL (140-400); Red Blood Count 3.76 M/mcL (3.82-4.97); Red Cell Distribution Width 22.2 % (11.5-14.5); Segmented Neutrophils % 48.5 %
[2017-04-26 03:36] LABS: BUN/Creatinine Ratio 10 (6-26); Blood Urea Nitrogen 6 mg/dL (7-20); Carbon Dioxide 23 mEq/L (19-29); Chloride 102 mEq/L (98-109); Glucose 105 mg/dL (70-99); Osmolality,Calculated 274 (280-300); Potassium 3.7 mEq/L (3.5-4.5); Sodium 133 mEq/L (136-145); eGFR For African Americans > 60 (> 60); eGFR For Non-African Americans > 60 (> 60)
[2017-04-26] MEDS ORDERED: Acetaminophen 325 MG TABLET PO PRN (04:11)
[2017-04-26] MEDS ORDERED: Vancomycin 1,250 MG in D5% in Water 250 ML IVPB SCH (05:00)
[2017-04-26] MEDS: *HR* Enoxaparin 80 MG/0.8 ML SYRINGE SQ SCH (05:13)
--- NOTE | 2017-04-26 09:33 | Oncology Inp Progress Note ---
Date of Encounter: 04/26/17 Time of Encounter: 09:30 (1) Recent unexplained fever Current Visit: Yes Status: Acute Assessment and plan: - Still with intermittent fever without signs of symptoms suggestive of infection. Work up remains negative, what rises the concern that this could be drug-related fever; blood cultures from current admission still in process. Blood culture from 04/12/17 positive for Achromobacter Xylosoxidans. On zosyn day #3 during the current hospitalization ( she has been on zosyn as outpatient) . - Plan of care discussed with primary oncologist Dr. Garcia. From the oncology point of view, ok to discharge home on IV antibiotics. She is scheduled to see Dr. Garcia tomorrow. (2) CLL (chronic lymphocytic leukemia) Current Visit: Yes Status: Chronic Assessment and plan: -There are not indications for inpatient therapy. Recent staging not suggestive of disease progression. - [place]rop[place] [id number] today. - She is being monitored in a monthly basis ( serum immunoglobulins ) due to chronic hypogammaglobulinemia for which she receives monthly IVIG infusions. No indications for acute interventions at this time. Oncology: Subj Interval history: Chief complaint: tiredness. Patient again had another febrile episode ( 101.5 F), repeated temperature at 6: 37 AM was 98.1 F ( after tylenol). She was accompanied by her during the visit. Other than feeling tired, she denies other complaints. Denies any recent episode of diarrhea, dysuria, chills, rigors, nausea, vomiting. - Constitutional Vitals: Vital Signs Temp Pulse Resp BP Pulse Ox 04/26/17 06:36 98.1 F 85 14 124/76 92 04/26/17 04:22 101.5 F H 96 16 124/73 93 04/25/17 23:34 99.7 F H 101 17 123/75 95 04/25/17 19:44 100.1 F H 94 17 129/75 96 04/25/17 15:46 99.8 F H 98 16 107/59 94 04/25/17 11:18 100.1 F H 93 14 117/60 95 Intake and Output 04/25/17 04/26/17 04/26/17 23:59 07:59 15:59 Intake Total 350 / 350 800 / 800 Output Total 1400 / 1400 650 / 650 400 / 400 Balance -1050 / -1050 150 / 150 -400 / -400 Intake: IV Fluids 350 / 350 Zosyn 3.375 GM In 100 / 100 Dextrose 5% (Minibag+) 100 ML 100 ML @ 25 mls/hr IVPB Q8H [facility] Rx#: [id number] Vancocin 1,000 MG In 250 / 250 Dextrose 5% 250 ML @ 167 mls/hr IVPB Q12H [facility] Rx#: [id number] Oral 0 / 0 800 / 800 Output: Urine 1400 / 1400 650 / 650 400 / 400 Other: # Voids 1 Weight 73.573 kg Patient Weight 04/26/17 23:59 Weight 73.573 kg - Head Head exam: Present: normal inspection - ENT ENT exam: Present: normal exam - Neck Neck exam: Present: normal inspection - Respiratory Respiratory exam: Present: CTAB - Cardiovascular Cardiovascular exam: Present: +S1 - GI/Abdominal GI/Abdominal exam: Present: normal bowel sounds. Absent: tenderness - Extremities Exam Extremities exam: Present: normal inspection. Absent: pedal edema Oncology: Obj Data - Labs CBC & Chem 7: 04/26/17 03:15 04/26/17 03:15 Labs: Laboratory Results - last 24 hr 04/26/17 04/26/17 04/26/17 03:15 03:15 03:15 WBC 3.3 L RBC 3.76 L Hgb 11.0 L Hct 34.9 L MCV 92.8 MCH 29.3 MCHC 31.5 L RDW 22.2 H Plt Count 135 L MPV 9.9 Immature Gran % 0.9 Seg Neutrophils % 48.5 Lymphocytes % 32.5 Monocytes % 14.5 Eosinophils % 0.9 Basophils % 2.7 Neutrophils # 1.6 Lymphocytes # 1.1 Monocytes # 0.5 Eosinophils # 0.0 Basophils # 0.1 Immature Plt Fraction 4.0 Sodium 133 L Potassium 3.7 Chloride 102 Carbon Dioxide 23 BUN 6 L Creatinine 0.61 Est GFR ( Amer) > 60 Est GFR (Non-Af Amer) > 60 BUN/Creatinine Ratio 10 Glucose 105 H Calculated Osmolality 274 L Calcium 9.0 Vancomycin Trough 10.5 - ABG Interpretation ABG results: PT/INR, D-dimer PT 11.1 Seconds (9.4-12.1) 04/24/17 14:56 Consult Discharge Plan - Plan Referrals: NONE,PCP [Primary Care Provider] -
[2017-04-26] MEDS: Gabapentin 100 MG CAPSULE PO SCH (10:01)
[2017-04-26] MEDS: levETIRAcetam 250 MG TABLET PO SCH (10:02)
[2017-04-26] MEDS: Nystatin SUSP 5 ML UD.LIQ PO SCH (10:06)
[2017-04-26] MEDS: VALGANCICLOVIR HCL 450 MG PO SCH (10:08)
[2017-04-26 10:50] VITALS: BP 131/83
--- NOTE | 2017-04-26 13:08 | Physician Discharge Referral ---
Home Health/Hosp Referral Info Transfer to: Home Health Attending Provider: Pancho Martin CNP Provider in Charge Post Discharge: PCP - Diagnosis (1) Neutropenic fever Priority: Primary Status: Acute (2) Neutropenia Priority: Secondary Status: Chronic (3) Anemia Priority: Secondary Status: Chronic (4) HTN (hypertension) Priority: Secondary Status: Chronic (5) Hypothyroidism Priority: Secondary Status: Chronic (6) History of CMV Priority: Secondary Status: Chronic (7) History of DVT (deep vein thrombosis) Priority: Secondary Status: Chronic (8) CLL (chronic lymphocytic leukemia) Priority: Secondary Status: Chronic (9) Hyponatremia Priority: Secondary Status: Chronic (10) Atrial fibrillation Priority: Secondary Status: Chronic (11) DVT prophylaxis Priority: Primary Status: Acute - Respiratory Orders Smoking Cessation: Smoking cessation has been advised. For more information, call the [place] Tobacco Quit Line at 4-836-YCLP-NOW. - Diet/Nutrition Diet/Nutrition Orders: Regular - Activity Activity Orders: Up ad quyen - Services Needed Following services are medically necessary services: Nursing, Home Health Aide Other Treatments: continue IV zosyn - Transfer Medications Home Medications: Omeprazole [PriLOSEC] 20 mg PO DAILY 10 Days 11/18/16 [Rx] Gabapentin [Neurontin] 100 mg PO BID #60 capsule 03/17/17 [Rx] Pravastatin Sodium [Pravachol] 80 mg PO HS #30 03/17/17 [Rx] Enoxaparin [Lovenox] 70 mg SQ Q12HR 03/19/17 [History] Lidocaine/Prilocaine CREAM [Emla] 1 appl TP AD PRN 03/19/17 [History] Nystatin [Nystatin Suspension] 500,000 units PO QID #400 ml 03/31/17 [Rx] levETIRAcetam [Levetiracetam] 1,000 mg PO BID 04/12/17 [History] Levothyroxine [Synthroid] 100 mcg PO QPM 04/24/17 [History] Obkvzxddfbnx-Lzdl-Ilikylxn,Iso [Zosyn 4.5 gm/100 ml Galaxy Bag] 4.5 gm IV Q8H [History] Valganciclovir HCl [Valcyte] 450 mg PO BID 04/24/17 [History] Acetaminophen [Tylenol] 650 mg PO Q6HR PRN tab 04/26/17 [Rx] Allergies/Adverse Reactions: 3 Allergy/AdvReac Type Severity Reaction Status Date / Time No Known Allergies Allergy Verified 04/24/17 14:01 Certification: Further, I certify that my clinical findings support that this patient is homebound (i.e. absences from home require considerable and taxing effort and are for medical reasons or uatsdin services or infrequently or short duration when for other reasons) because: Homebound Reason: Leaving home requires considerable and taxing effort due to condition Attestation: My signature below is to certify that this patient is under my care and that I, or nurse practitioner, or a physician's purchasing assistant working with me, has a face-to -face encounter with this patient.
[2017-04-26] MEDS ORDERED: Aminoglycoside Consult 1 EACH MC ONE (14:32)
[2017-04-29 02:35] LABS: CMV Quant by PCR IU <227 IU/mL; CMV Quant by PCR Log IU <2.4 log IU/mL; CMV Quant by PCR copies <390 cpy/mL
[2017-04-29 15:17] LABS: CMV Quant by PCR Log copies <2.6 log cpy/mL
== END 2017-04-26 14:33 | disposition home health service (06) ==
LOC: 3BNU 13:53 → EMEROO 13:53 → 3BNU 16:53
PROVIDERS: ADMIT Internal Medicine; ATTEND Nurse Practitioner Family

== ENCOUNTER 2017-05-02 11:20 | Observation (INO) ==
[2017-05-02] MEDS ORDERED: 0.9 % Sodium Chloride 1,000 ML IVC ONE (12:05)
[2017-05-02] MEDS ORDERED: Ondansetron 4 MG/2 ML VIAL IVP ONE (12:05)
--- NOTE | 2017-05-02 12:22 | Emergency Department Note ---
Disposition Clinical Impression: Weakness, Hyponatremia, Hypokalemia Disposition: Admitted As Inpatient Condition: Fair Referrals: Flaquito Church DO [Primary Care Provider] - Forms: ED Satisfaction Letter Nausea/Vomiting/Diarrhea HPI - General Chief complaint: ED Nausea/Vomiting/Diarrhea Stated complaint: AMS,vomiting Time Seen by Provider: 05/02/17 12:22 Source: patient Mode of arrival: private vehicle Limitations: no limitations Nursing Notes Reviewed: Yes Vital Signs Reviewed: Yes - History of Present Illness HPI Narrative: 71-year-old female history of CLL followed at the [facility] with most recent chemotherapy back in September 2016 who presents to the ER with multiple complaints. Family reports that she felt dizzy at home. This is actually been going on since she was at the [facility]. Family reports increased urinary frequency. They state they were giving her Zosyn at home to finish antibiotics. They state that she has been susceptible to infections and is currently being treated for CMV. states that she gets sick whenever she takes medication but he has not been giving her any medications to combat the nausea and vomiting whenever he gets up. He states he does not believe in medications that much. Reports nausea and vomiting in the morning and evening. She denies any abdominal pain. No dysuria or hematuria. No chest pain or shortness of breath. No other complaints. Pt Subjective Complaint: nausea, vomiting Onset (ago): day(s) Description of emesis: watery Associated Abdominal Pain: No Severity: none Consistency: intermittent Improves with: nothing Worsens with: nonthing Context: recent antibiotic use Associated symptoms: Reports: nausea/vomiting. Denies: chest pain, fever/chills , shortness of breath - Related Data Home Medications Medication Instructions Recorded Confirmed Enoxaparin [Lovenox] 70 mg SQ Q12HR 03/19/17 05/02/17 Lidocaine/Prilocaine CREAM [Emla] 1 appl TP AD PRN 03/19/17 05/02/17 levETIRAcetam [Levetiracetam] 1,000 mg PO BID 04/12/17 05/02/17 Levothyroxine [Synthroid] 100 mcg PO QPM 04/24/17 05/02/17 Valganciclovir HCl [Valcyte] 450 mg PO BID 04/24/17 05/02/17 Previous Rx's Medication Instructions Recorded Omeprazole [PriLOSEC] 20 mg PO DAILY 10 Days 11/18/16 Gabapentin [Neurontin] 100 mg PO BID #60 capsule 03/17/17 Pravastatin Sodium [Pravachol] 80 mg PO HS #30 03/17/17 Nystatin [Nystatin Suspension] 500,000 units PO QID #400 ml 03/31/17 Acetaminophen [Tylenol] 650 mg PO Q6HR PRN tab 04/26/17 Allergies Allergy/AdvReac Type Severity Reaction Status Date / Time No Known Allergies Allergy Verified 05/02/17 11:29 All systems ED: reviewed and negative except as stated. Constitutional: Reports: weakness. Denies: fever, chills Cardiovascular: Denies: chest pain Respiratory: Denies: dyspnea Gastrointestinal: Reports: nausea, vomiting. Denies: abdominal pain, diarrhea Genitourinary: Reports: frequency. Denies: dysuria, hematuria Past Medical History - Past Medical History Attestation: Yes The following information was validated with the patient. Source: patient Medical history: Reports: atrial fibrillation, cancer, DVT, hyperlipidemia, hypertension, RA, seizures, thyroid disease, other Surgical history: Reports: cancer surgery (mastectomy) Psychiatric history: Reports: no psych history [employer]ESS[employer]MENT [employer] history: Reports: bilateral tubal ligation - Social History Smoking Status: Never smoker Smokeless Tobacco Status: No Alcohol use: Reports: none Drug use: Reports: none Physical Exam - General Limitations: no limitations General appearance: alert, in no apparent distress - Head Head exam: atraumatic, normocephalic, normal inspection - Eye Eye exam: Present: normal appearance, EOMI - ENT ENT exam: normal exam - Neck Neck exam: Present: normal inspection, full ROM - Chest Chest inspection: Present: normal inspection, symmetric chest wall rise - Respiratory Respiratory exam: Present: normal lung sounds bilaterally - Cardiovascular Cardiovascular exam: Present: regular rate, normal rhythm, normal heart sounds - Abdominal Exam Abdominal exam: Present: soft, Non-Tender. Absent: tenderness, distention, rigidity - Extremities Exam Extremities exam: Present: normal inspection, full ROM - Expanded Upper Extremity Exam Shoulder exam: Present: normal inspection, full ROM Arm exam: Present: normal inspection, full ROM Elbow exam: Present: normal inspection, full ROM Forearm/Wrist exam: Present: normal inspection, full ROM Hand exam: Present: normal inspection, full ROM Vascular exam: Normal: radial pulse - Expanded Lower Extremity Exam Hip/Pelvis exam: Present: normal inspection, full ROM Upper leg exam: Present: normal inspection, full ROM Knee exam: Present: normal inspection, full ROM Lower leg exam: Present: normal inspection, full ROM Ankle exam: Present: normal inspection, full ROM Foot/toe exam: Present: normal inspection, full ROM Neurovascular/Tendon exam: Absent: motor deficit, sensory deficit - Neurological Exam Neurological exam: Present: alert, other (GCS 15. Nonfocal neurologic exam. Moves all extremities equally. No nystagmus on exam.) - Psychiatric Psychiatric exam: Present: normal affect, normal mood - Skin Skin exam: Present: warm, dry, intact, normal color Course Course Narrative: Patient seen and examined. She seems to have a lot of chronic complaints and sounds like she had medications for nausea and vomiting when taking her medications but she was not receiving them. We will check labs as well as urinalysis as well as an EKG given dizziness. We will give her some IV fluids here and Zofran. - Reevaluation(s) Reevaluation #1: I discussed results of imaging and lab work with the patient and family. He reports that she has been treated multiple times for pneumonia. She just finished those and 2 days ago. We will discuss with the on-call oncologist. - Consultations Consultation #1: I spoke with the on-call oncologist concerning this patient. Discussed the patient's history and exam labs and imaging today. He will see the patient in consultation and agrees with admission. Admit to the hospitalist service. We will obtain cultures at this time and hold on antibiotics. Vital Signs Temperature 98.7 F 05/02/17 11:25 Pulse Rate 92 05/02/17 11:25 Respiratory Rate 18 05/02/17 11:25 Blood Pressure 138/87 05/02/17 11:25 O2 Sat by Pulse Oximetry 97 05/02/17 11:25 Temperature 98.7 F 05/02/17 11:25 Pulse Rate 92 05/02/17 11:25 Respiratory Rate 18 05/02/17 11:25 Blood Pressure 138/87 05/02/17 11:25 O2 Sat by Pulse Oximetry 97 05/02/17 11:25 Oxygen Delivery Oxygen Delivery Room Air Nausea/Vomiting/Diarrhea - MDM Narrative Medical decision making narrative: 71-year-old female history of cancer follow-up with oncology here who presents to the ER due to weakness, nausea and vomiting. She is alert here but appears tired on exam. EKG is nonischemic. Chest x-ray shows multifocal opacifications. She has been treated for pneumonia multiple times in the past. She is afebrile but family does report fevers until yesterday of 101. She has no oxygen supplementation requirement. Case was discussed with oncology who recommends admission for cultures. Patient admitted to the hospitalist service. - Lab Data Lab results reviewed: Yes I reviewed the patient's lab results. Result diagrams: 05/02/17 12:50 05/02/17 12:50 Lab Results 05/02/17 05/02/17 05/02/17 Range/Units 12:36 12:50 12:50 WBC 2.0 L (4.3-11.1) K/mcL RBC 3.61 L (3.82-4.97) M/mcL Hgb 11.1 L (11.5-15.4) g/dL Hct 33.3 L (35.3-44.9) % MCV 92.2 (83.0-100.0) fL MCH 30.7 (28.0-33.3) pg MCHC 33.3 (31.6-35.5) g/dL RDW 21.0 H (11.5-14.5) % Plt Count 101 L (140-400) K/mcL MPV 10.9 (9.4-12.4) fL Seg Neutrophils % 56.0 % Band Neutrophils % 2.0 (0-4) % Lymphocytes % 22.0 % Monocytes % 18.0 % Basophils % 2.0 % Neutrophils # 1.2 L (1.6-8.9) K/mcL Lymphocytes # 0.4 L (0.6-4.6) K/mcL Monocytes # 0.4 (0.0-1.3) K/mcL Basophils # 0.0 (0.0-0.2) K/mcL Platelet Estimate Normal (Normal) Sodium 129 L (136-145) mEq/L Potassium 2.9 L (3.5-4.5) mEq/L Chloride 95 L (98-109) mEq/L Carbon Dioxide 25 (19-29) mEq/L BUN 5 L (7-20) mg/dL Creatinine 0.52 L (0.57-1.11) mg/dL Est GFR ( Amer) > 60 (> 60) Est GFR (Non-Af Amer) > 60 (> 60) BUN/Creatinine Ratio 10 (6-26) Glucose 137 H (70-99) mg/dL Calculated Osmolality 267 L (280-300) Calcium 9.0 (8.6-10.8) mg/dL Troponin I (0-0.03) ng/mL Lipase 39 (8-78) Units/L Urine Color Yellow (Yellow) Urine Clarity Clear (Clear) Urine pH 7.5 (5.0-8.0) pH Units Ur Specific [place] 1.012 (1.010-1.025) Urine Protein Trace (Neg-Trace) mg/dL Urine Glucose (UA) Normal (Normal) mg/dL Urine Ketones Negative (Negative) mg/dL Urine Blood Negative (Negative) Urine Nitrite Negative (Negative) Urine Bilirubin Negative (Negative) Urine Urobilinogen Normal (Normal) mg/dL Ur Leukocyte Esterase Negative (Negative) Urine Microscopic RBC 0-3 (0-3) per hpf Urine Microscopic WBC 0-3 (0-3) per hpf Ur Squamous Epith Cells Moderate H (None-Few) per lpf Urine Bacteria None Seen (None-Few) per hpf Hyaline Casts None Seen (None-Few) per lpf Ur Culture Indicated? NO (NO) 05/02/17 Range/Units 12:50 WBC (4.3-11.1) K/mcL RBC (3.82-4.97) M/mcL Hgb (11.5-15.4) g/dL Hct (35.3-44.9) % MCV (83.0-100.0) fL MCH (28.0-33.3) pg MCHC (31.6-35.5) g/dL RDW (11.5-14.5) % Plt Count (140-400) K/mcL MPV (9.4-12.4) fL Seg Neutrophils % % Band Neutrophils % (0-4) % Lymphocytes % % Monocytes % % Basophils % % Neutrophils # (1.6-8.9) K/mcL Lymphocytes # (0.6-4.6) K/mcL Monocytes # (0.0-1.3) K/mcL Basophils # (0.0-0.2) K/mcL Platelet Estimate (Normal) Sodium (136-145) mEq/L Potassium (3.5-4.5) mEq/L Chloride (98-109) mEq/L Carbon Dioxide (19-29) mEq/L BUN (7-20) mg/dL Creatinine (0.57-1.11) mg/dL Est GFR ( Amer) (> 60) Est GFR (Non-Af Amer) (> 60) BUN/Creatinine Ratio (6-26) Glucose (70-99) mg/dL Calculated Osmolality (280-300) Calcium (8.6-10.8) mg/dL Troponin I 0.01 (0-0.03) ng/mL Lipase (8-78) Units/L Urine Color (Yellow) Urine Clarity (Clear) Urine pH (5.0-8.0) pH Units Ur Specific [place] (1.010-1.025) Urine Protein (Neg-Trace) mg/dL Urine Glucose (UA) (Normal) mg/dL Urine Ketones (Negative) mg/dL Urine Blood (Negative) Urine Nitrite (Negative) Urine Bilirubin (Negative) Urine Urobilinogen (Normal) mg/dL Ur Leukocyte Esterase (Negative) Urine Microscopic RBC (0-3) per hpf Urine Microscopic WBC (0-3) per hpf Ur Squamous Epith Cells (None-Few) per lpf Urine Bacteria (None-Few) per hpf Hyaline Casts (None-Few) per lpf Ur Culture Indicated? (NO) - Radiology Data Radiology results reviewed: Yes I reviewed the patient's radiology results. Chest X-Ray 05/02/17 13:42 IMPRESSION: Subtle multifocal consolidation. D/ / Ilan Rubio MD / Ilan Rubio MD Interpreting Provider: Ilan Rubio MD - EKG Data EKG attestation: Yes I reviewed and interpreted this EKG. EKG results narrative: EKG demonstrates sinus rhythm with a rate of 76 bpm. Left axis deviation. Normal intervals. T-wave flattening in lead 3. No ST elevations or depressions. No acute ischemic findings. No significant changes from previous EKG dated 04/12/17. S.B.A.R. - S.B.A.R. Situation: Demographics, MOA Background: Presenting Complaint, Relevant PMH, Meds, & Allergies Assessment: Vital Signs, Course and respsone to treatment, Exam Concerns, Patient/Family Expectation, Pertinant Lab Results, Outstanding Labs Recommendation: Barrier(s) to disposition, Recommendation based on pending studies, treatments, or consults S.B.A.RAmanda Report Given to: Stacey Rogers Repor Time: 16:13
[2017-05-02 12:42] LABS: Bilirubin,Urine Negative (Negative); Blood,Urine Negative (Negative); Clarity,Urine Clear (Clear); Color,Urine Yellow (Yellow); Glucose,Urine (UA) Normal (Normal); Ketones,Urine Negative (Negative); Leukocyte Esterase,Urine Negative (Negative); Nitrite,Urine Negative (Negative); PH,Urine 7.5 pH Units (5.0-8.0); Protein,Urine Trace mg/dL (Neg-Trace); Specific Gravity,Urine 1.012 (1.010-1.025); Urobilinogen,Urine Normal (Normal)
[2017-05-02 12:43] LABS: Bacteria,Urine None Seen per hpf (None-Few); Hyaline Casts,Urine None Seen per lpf (None-Few); RBC,Urine 0-3 per hpf (0-3); Squamous Epithelial Cell,Urine Moderate per lpf (None-Few); WBC,Urine 0-3 per hpf (0-3)
--- NOTE | 2017-05-02 13:11 | Emergency Department Note ---
START Narrative - START START: I examined this patient and my medical decision-making was reviewed with the ARCHITECTURE DEPARTMENT CHAIR/PA/Advanced Practice Nurse/Resident Physician. I agree with the documented findings, disposition and treatment plan as described except to the extent set forth below. ED attending: Patient's emergency medicine resident Dr. SMITH. Please see copy of this note for H&P evaluation and management and ED disposition. We both had independent lnyi-hr-[id number] time in contact with this patient. Briefly: A 71-year-old female presents with by wheelchair for nausea and vomiting. Patient has a history of breast cancer and CLL. Currently being treated. Been having intractable nausea and vomiting for several days. And some dysuria. Patient getting ED workup. Providing 30 minutes of critical care services this patient with admission anticipated. Disposition pending.
[2017-05-02 13:24] LABS: Hematocrit 33.3 % (35.3-44.9)
[2017-05-02 13:26] LABS: Hemoglobin 11.1 g/dL (11.5-15.4); Mean Corpuscular HGB Conc 33.3 g/dL (31.6-35.5); Mean Corpuscular Hemoglobin 30.7 pg (28.0-33.3); Mean Corpuscular Volume 92.2 fL (83.0-100.0); Mean Platelet Volume 10.9 fL (9.4-12.4); Platelet Count 101 K/mcL (140-400); Red Blood Count 3.61 M/mcL (3.82-4.97)
[2017-05-02 13:44] LABS: Lymphocytes # 0.4 K/mcL (0.6-4.6); Monocytes # 0.4 K/mcL (0.0-1.3); Neutrophils # 1.2 K/mcL (1.6-8.9); Platelet Estimate Normal (Normal)
[2017-05-02 13:47] LABS: BUN/Creatinine Ratio 10 (6-26); Carbon Dioxide 25 mEq/L (19-29); Chloride 95 mEq/L (98-109); Glucose 137 mg/dL (70-99); Lipase 39 Units/L (8-78); Osmolality,Calculated 267 (280-300); Potassium 2.9 mEq/L (3.5-4.5); Sodium 129 mEq/L (136-145); eGFR For African Americans > 60 (> 60); eGFR For Non-African Americans > 60 (> 60)
[2017-05-02 13:48] LABS: Blood Urea Nitrogen 5 mg/dL (7-20)
[2017-05-02] MEDS ORDERED: Naloxone 0.4 MG/ML INJ IVP PRN (17:49)
[2017-05-02] MEDS ORDERED: Acetaminophen 325 MG TABLET PO PRN (17:49)
[2017-05-02] MEDS ORDERED: Ondansetron 4 MG/2 ML VIAL IVP PRN (17:49)
[2017-05-02] MEDS: 0.9 % Sodium Chloride 1,000 ML IVC SCH (18:35)
[2017-05-02] MEDS: *HR* Enoxaparin 80 MG/0.8 ML SYRINGE SQ SCH (18:35)
--- NOTE | 2017-05-02 18:48 | Oncology Inp Consult Note ---
Date of Encounter: 05/02/17 Time of Encounter: 18:48 Assessment and Plan (1) CLL (chronic lymphocytic leukemia) Status: Chronic Assessment and plan: - s/p 2 cycles of Bendamustine, discontinued prematurely in Sep 2016 due to clinic decompensation. - At this time her CLL seems overall stable, and there are not indications to resume therapy as inpatient. - Please confirm that she is scheduled to see her new oncologist Dr. Mcelroy within the next couple of weeks post discharge. (2) Fever Status: Resolved Assessment and plan: - Still recurrent fever, and probably worsening in frequency ( reported fever in the 101 F range every night and associated with intermittent chills). Differential diagnosis included: fever secondary to persistent CMV viremia ( in view of recent POSITIVE qualitative CPR, although the quantitative PCR was negative, suggestive of low viremia), recurrent multifocal HCPA( although the lack of cough and the physical exam suggest against this diagnosis even in the presence of worsening CXR findings), drug related fever, recurrent bacteremia ( less likely in view of negative blood cultures on 04/24, suggestive that her prior bacteremia has cleared up after a long course of zosyn), or fever due to an unknown opportunistic infection in view of her history of CLL and immunocompromised state. - I would recomend to repeat infections work up ( Urinary culture, blood culture ). May consider to hold off on antibiotics unless she experiences recurrent fever as inpatient ( in view that apparently she has treated for more than 4 weeks with IV zosyn and most recent blood cultures from 04/24 were negative) or experiences clinical decompensation. Another reasonable approach would be an alternative empiric antibiotic regimen until blood cultures have been negative for 48 hours. - At this time I would recommend to continue Valgaciclovir and request an ID consult for further recommendations regarding the management of CMV infection. - In view of her history of CMV infection and abnormal CXR findings, I would suggest to request a pulmonary consult to assess if bronchoscopy with BAL would be helpful to determine the etiology of abnormal radiologic findings and exclude the possibility of CMV pneumonitis. - Her worsening mental status could be due to acute delirium in the presence of acute illness and recurrent fever, but in view of her history of encephalitis, I would strongly recommend to repeat a brain MRI and consider a neurologic consult if MRI shows significant abnormalities. Qualifiers: Qualified Code(s): R50.9 - Fever, unspecified (3) History of CMV Status: Chronic Assessment and plan: As desribed above, please consider continuing Valganciclovir and requesting an ID consult. (4) DVT (deep venous thrombosis) Status: Chronic Assessment and plan: - Heterozygous for factor V leiden -Continue Lovenox 70 mg BID. - She should be considered for IVC filter removal if she tolerate full anticoagulation well and there is not residual lower extremity DVT. Anticoagulation duration to be determined by primary electronic service technician/oncology visit during next office visit. Qualifiers: Qualified Code(s): I82.509 - Chronic embolism and thrombosis of unspecified deep veins of unspecified lower extremity (5) Pancytopenia Status: Chronic Assessment and plan: - More likely multifactorial, due to CMV viremia, therapy with Valganciclovir, poor bone marrow reserve due to prior history of chemotherapy with bendamustine and concomitant CLL. Fortunately her red cell and platelet counts remain stable , at this time with not need for transfusions. - She has associated leucopenia, but her ANC remains within acceptable values ( 1.2 K/mcL). There is not need for neupogen at this time. - Continue with monthly IVIG infusion in view of history of chronic hypogammaglobulinemia ( probably in the settings of prior Rituxan therapy and underlying CLL). Consider repeating immunoglobubine levels while inpatient ( IgG , IgA, IgM) since last tested on March 17, 2019). - Data of Consult Requesting Physician: Berry Atkins DO Primary Care Provider: Flaquito Church DO - Consult Narrative Reason for consult: recurrent fever in patient wiht CLL History of present illness: Ms. Fish is a 71 year old female with history of CLL, right ER/MS positive, HER2 negative ([id number]) breast cancer s/p mastectomy, adjuvant radiation but declined chemotherapy ( due to in termediate recurrent risk: 18), Afib, hypothyroidism, RA, seizure disorder, DVT/PE ( IVC filter), CMV infection, GERD who was brought to the ER by her family due to one week history of worsening generalized weakness, nausea/vomiting, and persistent fever. Ms. Fish was discharged from [facility] on 04/26/17 after a 3 day hospitalization course. At that time she was was admitted due to recurrent fever ( 101/4). Her infectious work up consisted in blood culture, urine studies , and CXR that revealed not findings to explained her recurrent fever. She was discharged home on treatment with zosyn ( due to HCAP) and valganciclovir. She was seen one day after discharge at the oncology outpatient, feeling relative well. Shortly after discharge she noticed recurrence of her intermittent episodes of fever, occasionally associated with chills. She reports that for the last 5 days she has noticed worsening generalized weakness, fever almost every day ( usually at night, and early in the morning), intermittent chills, worsening of her short term memory and associated confusion, along with daily episodes of nausea and vomiting. She reports that for the last few days has noticed nausea and vomiting early in the morning, usually her nausea resolved after 2-3 episodes of emesis. She feels that she has lost some weight because her appetite has been poor lately, although she reports having been able to tolerate at least 2 meals daily. She reports good urinary output, and denies any recent episode of diarrhea or constipation. She feels that her mentation is lightly off, and during the visit she could not remember who was the president prior to president Mark, what according to her family is definitely not her baseline. She has been diagnosed with encephalitis while being seen at [facility] ( by neurology during inpatient care), and according to her Golden, she was scheduled to have a brain MRI ( prior to neurology follow up) as the follow up management of her prior episode of encephalitis. She is being treated for CMV infection with Valganciclovir. She experienced worsening pancytopenia with prior antiviral therapy. She was seen by ID while admitted in [place]. Prior records were reviewed, including discharge summary from 04/20/17. At that time the recommendations were to discontinue Valgacinclovir if her CMV PCR was negative ( with lab results to be faxed to Dr. Echeverria from ID). she underwent CMV studies on 04/25/17, in which qualitatitive DNA PCR was reported as DETECTED, but quantitative PCR was negative (at concentrations of at least 227IU/ml, 2.4 log IU/ml, 390 cpy/ml). She has been on her scheduled doses of valgacinclovir, and reported not missing doses. Regarding her history of CLL, she has been off treatment since last September. She was diagnosed in Jun 2012. Diagnosis confirmed by peripheric flow cytometry. Cytogenetics and FISH showed trisomy 12 as well as deletion 13, all compatible with intermediate risk. CT chest from 08/14 showed progressive lymphadenopathy/ Bone marrow biopsy from 09/04/16 confirmed 75% involvement with a monoclonal B cell population. She was started on bendamustine ( 28 day cycle regimen for 4-6 cycles ). Treatment was started on 09/16/16 but stopped after 2 cycles due to clinical deterioration. CT neck, chest, abdomen and pelvis from showed not neck adenopathy, and mild interval increased in mediastinal , retroperitoneal, left axillary lymphadenopathy suggestive of mixed response. Treatment has been on hold since then due to recurrent hospitalizations due to issues related to HCAP ( requiring IV zosyn) and CMV infection. Her daughter in law and her Golden report that she has been more forgetful lately, at least for the last 3-4 days, but they have not noticed seizure like activity. She reports worsening of generalized weakness, but reports that has been able to ambulate independently with a walker at home, also being independent with transfers. She reports being independent with ADLs, including toilet, eating. 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 She reports not recent cough, dysuria, headache, visual changes. Reviewed of old medical records: - Prior discharge summaries, including discharge summary from04/20/17, 04/26/17, as well as prior oncology notes, and hospital notes from recent hospitalizations were reviewed. In summary she is being treated with PO Valgacinclovir due to CMV infection and with zosyn due to multifocal PNA. She has a history of early state breast cancer s/p mastectomy and radiation, and history of CLL s/p 2 cycles of bendamustine, discontinued prematurely due to deterioration of her health. Past Med Surg Social Fam HX - Past Medical History Medical history: atrial fibrillation, cancer, DVT, hyperlipidemia, hypertension , RA, seizures, thyroid disease, other Psychiatric history: no psych history - Past Surgical History Surgical History: cancer surgery (mastectomy) - Social History Smoking Status: Never smoker Smokeless Tobacco Status: No Alcohol use: none Drug use: none - Family History Mother Living Status: Hx Family Cardiac Disorders: Yes Hx Family Respiratory Disorders: Yes Hx Family Cancer: Yes Hx Family GI Disorders: No Hx Family Endocrine Disorder: No Hx Family Neuromuscular Disorders: No Hx Family Neurologic Disorders: No Hx Family HEENT Disorders: No Hx Family Autoimmune Disorders: No Father Adopted: No Living Status: Hx Family Cardiac Disorders: Yes Hx Family Respiratory Disorders: Yes Hx Family Cancer: Yes (leukemia) Hx Family GI Disorders: No Hx Family Endocrine Disorder: No Hx Family Neuromuscular Disorders: No Hx Family Neurologic Disorders: No Hx Family HEENT Disorders: No Hx Family Autoimmune Disorders: No Medications and Allergies Omeprazole [PriLOSEC] 20 mg PO DAILY 10 Days 11/18/16 [Rx] Gabapentin [Neurontin] 100 mg PO BID #60 capsule 03/17/17 [Rx] Pravastatin Sodium [Pravachol] 80 mg PO HS #30 03/17/17 [Rx] Enoxaparin [Lovenox] 70 mg SQ Q12HR 03/19/17 [History] Lidocaine/Prilocaine CREAM [Emla] 1 appl TP AD PRN 03/19/17 [History] Nystatin [Nystatin Suspension] 500,000 units PO QID #400 ml 03/31/17 [Rx] levETIRAcetam [Levetiracetam] 1,000 mg PO BID 04/12/17 [History] Levothyroxine [Synthroid] 100 mcg PO QPM 04/24/17 [History] Valganciclovir HCl [Valcyte] 450 mg PO BID 04/24/17 [History] Acetaminophen [Tylenol] 650 mg PO Q6HR PRN tab 04/26/17 [Rx] 3 Allergy/AdvReac Type Severity Reaction Status Date / Time No Known Allergies Allergy Verified 05/02/17 11:29 Constitutional: Present: fatigue, fever(s), malaise, weakness, weight loss. Absent: headache(s), increased appetite, night sweats Breasts: Absent: change in shape Cardiovascular: Present: irregular heart rhythm. Absent: chest pain, chest pain at rest, diaphoresis, dyspnea, dyspnea on exertion, edema, leg edema, leg ulcers, palpitations, rapid heart rate Respiratory: Absent: cough, hemoptysis, dyspnea on exertion, pain on inspiration , chest congestion, excessive phlegm production Gastrointestinal: Present: nausea, vomiting. Absent: abdominal pain ( intermittent constipation), coffee ground emesis, diarrhea, dysphagia, hematochezia, melena Genitourinary: Absent: abnormal vaginal bleeding, breast pain, dysuria, flank pain Musculoskeletal: Present: muscle weakness. Absent: back pain, myalgias, neck pain, numbness Integumentary: Absent: bleeding lesions, new lesions, pruritus, jaundice Neurological: Present: confusion, memory loss, weakness. Absent: abnormal movements, abnormal speech, convulsions, focal weakness, headache(s), loss of vision Psychiatric: Present: change in appetite, confusion, memory loss. Absent: hallucinations Endocrine: Present: fatigue. Absent: excessive sweating Hematologic/Lymphatic: Present: as per HPI (no new lymphadenopathy). Absent: easy bleeding, easy bruising Oncology - Exam - Constitutional Vitals: Temp Pulse Resp BP Pulse Ox 98.1 F 80 13 135/79 97 05/02/17 18:02 05/02/17 18:02 05/02/17 18:02 05/02/17 18:02 05/02/17 18:02 - Head Head exam: Present: normal inspection, normocephalic - Expanded Head Exam Head exam: Absent: CSF rhinorrhea, general tenderness, laceration - Eye Eye exam: Present: EOMI, normal appearance, periorbital tenderness, PERRL - ENT ENT exam: Present: normal external ear exam, normal oropharynx - Neck Neck exam: Present: normal inspection. Absent: lymphadenopathy - Respiratory Respiratory exam: Present: CTAB. Absent: prolonged expiratory phase, rales, respiratory distress, rhonchi, tachypnea - Cardiovascular Cardiovascular exam: Present: irregular rhythm, +S1. Absent: diastolic murmur, JVD, systolic murmur - GI/Abdominal GI/Abdominal exam: Present: normal bowel sounds, soft. Absent: diminished bowel sounds, distended, guarding, organomegaly, pulsatile mass, rebound - Extremities Exam Extremities exam: Absent: joint swelling, normal inspection, pedal edema, tenderness - Back Exam Back exam: Present: normal inspection. Absent: paraspinal tenderness - Neurological Exam Neurological exam: Present: CN II-XII intact, normal gait, oriented X3, reflexes normal. Absent: no focal deficits, speech deficit (She was ablet to name the current president of [place], but could not remember the prior one, and thought it was Emery Morin) - Expanded Neurological Exam Neurological exam: Present: memory loss-remote event, protecting the airway. Absent: expressive aphasia, receptive aphasia, total aphasia, tremor Patient oriented to: Present: person, place, time Speech: Present: fluid speech. Absent: slurred, total aphasia Cranial nerves: EOM's intact: Normal, facial palsy with forehead movement: Normal, facial palsy without forehead movement: Normal, facial sensation: Normal , tongue deviation: Normal Ataxia: Absent: yes Cerebellar function: finger to nose: Normal Neuro motor strength exam: LUE: 5, RUE: 5, LLE: 5, RLE: 5 - Psychiatric Psychiatric exam: Present: normal affect, normal mood (Self aware of decrease ability to concentrate and impaired short term memory.). Absent: anxious, depressed, flat affect - Skin Skin exam: Present: normal color. Absent: petechiae, rash Consult Discharge Plan - Plan Referrals: Flaquito Church, [Primary Care Provider] -
--- NOTE | 2017-05-02 19:01 | Internal Med History&Physical ---
<Stacey Antoine M - Last Filed: 05/02/17 18:57> Date of Encounter: 05/02/17 Time of Encounter: 18:57 Assessment and Plan (1) Weakness Current visit: Yes Status: Acute Patient's family reporting she is weak, drowsy and sleeping more than usual. Patient with equal strength bilaterally, no focal neuro deficits. Will check MRI of head/brain as patient is overdue for follow up MRI. Gentle IV fluids at 0.9NS at 80mL/hr. Oncology consulted. Check blood cultures. UA negative. CXR stable. 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 They report her short term memory problems and occasional confusion have not improved and they are concerned the encephalitis is not resolving. She is reportedly scheduled for MRI on Wednesday at [facility]. MRI head/brain without contrast ordered. (3) CLL (chronic lymphocytic leukemia) Current visit: Yes Status: Chronic Patient with CLL, and follows with [place] [facility]. She is not currently on any treatment due to infectious complications over the last 6 months. Oncology consulted. 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 She is still on valcyte BID until she has 4 consecutive negative CMV PCRs. Check CMV PCR. Check CBC daily. (5) History of DVT (deep vein thrombosis) Current visit: Yes Status: Chronic Patient with history of DVT. She is on therapeutic dose lovenox. Continue home dose of lovenox. Will check coags. (6) Hypokalemia Current visit: Yes Status: Acute Potassium of 2.9. 40mEq IVPB potassium ordered. Recheck chemistry daily. (7) Hyponatremia Current visit: Yes Status: Acute Sodium of 129. Will give gentle IV fluids of 0.9NS at 80mL/hr. Check sodium Q8hr. Consider free water restriction. (8) DVT prophylaxis Current visit: Yes Status: Acute Patient on lovenox for history of DVT. additional pharmacologic prophylaxis not warranted. anti-embolic stockings. Internal Medicine - H&P: HPI Chief complaint: weakness Admitted From: Emergency Dept Plans for Post Hospital Care: Home History of present illness: Ms. Fish is a 71 year old female with hypertension, hyperlipidemia, seizure disorder, history of DVT, hypothyroid, history of breast cancer status post surgical treatment, CLL, presented to the emergency department today with complaints of weakness, nausea and vomiting. Patient is drowsy but arousable, denies any complaints, states she "feels nothing". Family reports she is weak, has been having fevers on and off, vomited this morning. He reports she is been drowsy and sleeping more as well. Evaluation emergency department included a chest x-ray which showed some subtle multifocal consolidation, consistent with previous exams. UA was negative for any signs of infection. Her blood cell count was low at 2.0. She was hyponatremic with sodium of 129. She was hypokalemic with potassium of 2.9. Patient's oncologist was consulted from the ER who advised to culture patient and observe, with no addition of antibiotics. On exam, patient drowsy but arousable, oriented, answers questions appropriately. Heart has a regular rate and rhythm with systolic murmur. Lungs are clear bilaterally to auscultation. She has Pickett in place draining clear light yellow urine. Past Med Surg Social Fam HX - Past Medical History Medical history: atrial fibrillation, cancer, DVT, hyperlipidemia, hypertension , RA, seizures, thyroid disease, other Psychiatric history: no psych history - Past Surgical History Surgical History: cancer surgery (mastectomy) - Social History Smoking Status: Never smoker Smokeless Tobacco Status: No Alcohol use: none Drug use: none - Family History Mother Living Status: Hx Family Cardiac Disorders: Yes Hx Family Respiratory Disorders: Yes Hx Family Cancer: Yes Hx Family GI Disorders: No Hx Family Endocrine Disorder: No Hx Family Neuromuscular Disorders: No Hx Family Neurologic Disorders: No Hx Family HEENT Disorders: No Hx Family Autoimmune Disorders: No Father Adopted: No Living Status: Hx Family Cardiac Disorders: Yes Hx Family Respiratory Disorders: Yes Hx Family Cancer: Yes (leukemia) Hx Family GI Disorders: No Hx Family Endocrine Disorder: No Hx Family Neuromuscular Disorders: No Hx Family Neurologic Disorders: No Hx Family HEENT Disorders: No Hx Family Autoimmune Disorders: No Internal Medicine - H&P: Meds Omeprazole [PriLOSEC] 20 mg PO DAILY 10 Days 11/18/16 [Rx] Gabapentin [Neurontin] 100 mg PO BID #60 capsule 03/17/17 [Rx] Pravastatin Sodium [Pravachol] 80 mg PO HS #30 03/17/17 [Rx] Enoxaparin [Lovenox] 70 mg SQ Q12HR 03/19/17 [History] Lidocaine/Prilocaine CREAM [Emla] 1 appl TP AD PRN 03/19/17 [History] Nystatin [Nystatin Suspension] 500,000 units PO QID #400 ml 03/31/17 [Rx] levETIRAcetam [Levetiracetam] 1,000 mg PO BID 04/12/17 [History] Levothyroxine [Synthroid] 100 mcg PO QPM 04/24/17 [History] Valganciclovir HCl [Valcyte] 450 mg PO BID 04/24/17 [History] Acetaminophen [Tylenol] 650 mg PO Q6HR PRN tab 04/26/17 [Rx] 3 Allergy/AdvReac Type Severity Reaction Status Date / Time No Known Allergies Allergy Verified 05/02/17 11:29 All Systems PM: A 10-system review of systems was performed and is negative for pertinent findings except as documented above in the HPI. - Constitutional Constitutional: fever(s), weakness, no chills, no night sweats - EENT Eyes: no change in vision, no discharge, no pain, no photophobia Ears: no ear discharge, no ear pain, no tinnitus Nose, mouth and throat: no dysphagia, no nasal discharge, no neck pain, no sore throat - Cardiovascular Cardiovascular ROS IM: no chest pain, no diaphoresis, no dyspnea, no lightheadedness, no palpitations, no syncope - Respiratory Respiratory: no cough, no dyspnea, no wheezing, no excessive phlegm production - Gastrointestinal Gastrointestinal: nausea, vomiting, no abdominal pain, no diarrhea, no hematemesis, no hematochezia, no melena - Genitourinary Genitourinary: no change in urinary stream, no dysuria, no flank pain, no hematuria - Musculoskeletal Musculoskeletal ROS IM: no numbness, no tingling - Integumentary Integumentary IM: no rash, no unusual bruising - Neurological Neurological ROS: no confusion, no convulsions, no focal weakness, no numbness, no tingling, no tremor(s) - Hematologic/Lymphatic Hematologic/Lymphatic: no easy bruising - Constitutional Vitals: Temp Pulse Resp BP Pulse Ox 98.1 F 80 13 135/79 97 05/02/17 18:02 05/02/17 18:02 05/02/17 18:02 05/02/17 18:02 05/02/17 18:02 General appearance: Present: A&O X 3, pleasant, no acute distress Exam: drowsy - Head Head exam: Present: atraumatic, normocephalic - Eye Eye exam: Present: PERRL, conjuntiva pink, sclera anicteric Pupils: Present: PERRL - Neck Neck exam general surgery: Present: supple, trachea midline. Absent: lymphadenopathy - Respiratory Respiratory exam: Present: CTAB. Absent: accessory muscle use, rales, rhonchi, wheezes - Cardiovascular Cardiovascular exam: Present: RRR, +S1, +S2. Absent: diastolic murmur, gallop, rubs, systolic murmur - GI/Abdominal GI/Abdominal exam: Present: normal bowel sounds, soft, no peritoneal signs. Absent: distended, tenderness - Extremities Exam Extremities exam: Present: warm, radial pulses palpable and symmetrical. Absent : calf tenderness, cyanotic, pedal edema - Neurological Exam Neurological exam: Present: CN II-XII intact, oriented X3, no focal deficits. Absent: pronater drift, facial droop, speech deficit - Skin Skin exam: Present: dry, intact Internal Med - H&P Results - Labs CBC & Chem 7: 05/02/17 12:50 05/02/17 12:50 Labs: All Lab Results (24 Hours) 05/02/17 05/02/17 05/02/17 Range/Units 12:36 12:50 12:50 WBC 2.0 L (4.3-11.1) K/mcL RBC 3.61 L (3.82-4.97) M/mcL Hgb 11.1 L (11.5-15.4) g/dL Hct 33.3 L (35.3-44.9) % MCV 92.2 (83.0-100.0) fL MCH 30.7 (28.0-33.3) pg MCHC 33.3 (31.6-35.5) g/dL RDW 21.0 H (11.5-14.5) % Plt Count 101 L (140-400) K/mcL MPV 10.9 (9.4-12.4) fL Seg Neutrophils % 56.0 % Band Neutrophils % 2.0 (0-4) % Lymphocytes % 22.0 % Monocytes % 18.0 % Basophils % 2.0 % Neutrophils # 1.2 L (1.6-8.9) K/mcL Lymphocytes # 0.4 L (0.6-4.6) K/mcL Monocytes # 0.4 (0.0-1.3) K/mcL Basophils # 0.0 (0.0-0.2) K/mcL Platelet Estimate Normal (Normal) Sodium 129 L (136-145) mEq/L Potassium 2.9 L (3.5-4.5) mEq/L Chloride 95 L (98-109) mEq/L Carbon Dioxide 25 (19-29) mEq/L BUN 5 L (7-20) mg/dL Creatinine 0.52 L (0.57-1.11) mg/dL Est GFR ( Amer) > 60 (> 60) Est GFR (Non-Af Amer) > 60 (> 60) BUN/Creatinine Ratio 10 (6-26) Glucose 137 H (70-99) mg/dL Calculated Osmolality 267 L (280-300) Calcium 9.0 (8.6-10.8) mg/dL Troponin I (0-0.03) ng/mL Lipase 39 (8-78) Units/L Urine Color Yellow (Yellow) Urine Clarity Clear (Clear) Urine pH 7.5 (5.0-8.0) pH Units Ur Specific [place] 1.012 (1.010-1.025) Urine Protein Trace (Neg-Trace) mg/dL Urine Glucose (UA) Normal (Normal) mg/dL Urine Ketones Negative (Negative) mg/dL Urine Blood Negative (Negative) Urine Nitrite Negative (Negative) Urine Bilirubin Negative (Negative) Urine Urobilinogen Normal (Normal) mg/dL Ur Leukocyte Esterase Negative (Negative) Urine Microscopic RBC 0-3 (0-3) per hpf Urine Microscopic WBC 0-3 (0-3) per hpf Ur Squamous Epith Cells Moderate H (None-Few) per lpf Urine Bacteria None Seen (None-Few) per hpf Hyaline Casts None Seen (None-Few) per lpf Ur Culture Indicated? NO (NO) 05/02/17 Range/Units 12:50 WBC (4.3-11.1) K/mcL RBC (3.82-4.97) M/mcL Hgb (11.5-15.4) g/dL Hct (35.3-44.9) % MCV (83.0-100.0) fL MCH (28.0-33.3) pg MCHC (31.6-35.5) g/dL RDW (11.5-14.5) % Plt Count (140-400) K/mcL MPV (9.4-12.4) fL Seg Neutrophils % % Band Neutrophils % (0-4) % Lymphocytes % % Monocytes % % Basophils % % Neutrophils # (1.6-8.9) K/mcL Lymphocytes # (0.6-4.6) K/mcL Monocytes # (0.0-1.3) K/mcL Basophils # (0.0-0.2) K/mcL Platelet Estimate (Normal) Sodium (136-145) mEq/L Potassium (3.5-4.5) mEq/L Chloride (98-109) mEq/L Carbon Dioxide (19-29) mEq/L BUN (7-20) mg/dL Creatinine (0.57-1.11) mg/dL Est GFR ( Amer) (> 60) Est GFR (Non-Af Amer) (> 60) BUN/Creatinine Ratio (6-26) Glucose (70-99) mg/dL Calculated Osmolality (280-300) Calcium (8.6-10.8) mg/dL Troponin I 0.01 (0-0.03) ng/mL Lipase (8-78) Units/L Urine Color (Yellow) Urine Clarity (Clear) Urine pH (5.0-8.0) pH Units Ur Specific [place] (1.010-1.025) Urine Protein (Neg-Trace) mg/dL Urine Glucose (UA) (Normal) mg/dL Urine Ketones (Negative) mg/dL Urine Blood (Negative) Urine Nitrite (Negative) Urine Bilirubin (Negative) Urine Urobilinogen (Normal) mg/dL Ur Leukocyte Esterase (Negative) Urine Microscopic RBC (0-3) per hpf Urine Microscopic WBC (0-3) per hpf Ur Squamous Epith Cells (None-Few) per lpf Urine Bacteria (None-Few) per hpf Hyaline Casts (None-Few) per lpf Ur Culture Indicated? (NO) - Diagnostic Studies Chest x-ray Additional comments: Chest X-Ray 05/02/17 13:42 IMPRESSION: Subtle multifocal consolidation. D/ / Ilan Rubio MD / Ilan Rubio MD Interpreting Provider: Ilan Rubio MD <Berry Atkins - Last Filed: 05/02/17 19:28> Date of Encounter: 05/02/17 Internal Medicine - H&P: HPI History of present illness: Ms. Fish is a 71 year old female All Systems PM: A 10-system review of systems was performed and is negative for pertinent findings except as documented above in the HPI. - Constitutional Vitals: Temp Pulse Resp BP Pulse Ox 98.1 F 80 13 135/79 97 05/02/17 18:02 05/02/17 18:02 05/02/17 18:02 05/02/17 18:02 05/02/17 18:02 Internal Med - H&P Results - Labs CBC & Chem 7: 05/02/17 12:50 05/02/17 12:50 - Attending Attestation I have personally performed a face to face evaluation on this patient. I have reviewed and agree with the care plan. History and Exam by me shows: 71 y/o female with very complicated medical history admitted for fever and ? mental status change. Currently without complaint. Exam Alert. Confused to time Heart reg No wheeze Abd soft Agree with plan as documented above.
[2017-05-02] MEDS ORDERED: VALGANCICLOVIR HCL 450 MG PO SCH (21:00)
[2017-05-02] MEDS: levETIRAcetam 250 MG TABLET PO SCH (21:23)
[2017-05-02] MEDS: Gabapentin 100 MG CAPSULE PO SCH (21:23)
[2017-05-02] MEDS: Nystatin SUSP 5 ML UD.LIQ PO SCH (21:25)
[2017-05-03] MEDS ORDERED: Melatonin 3 MG TABLET PO ONE (00:18)
[2017-05-03] MEDS: *HR* Enoxaparin 80 MG/0.8 ML SYRINGE SQ SCH ×2 (05:35→17:44)
[2017-05-03] MEDS: 0.9 % Sodium Chloride 1,000 ML IVC SCH (07:05)
[2017-05-03 08:14] LABS: Basophils % 1.4 %; Eosinophils % 0.5 %; Hematocrit 37.9 % (35.3-44.9); Hemoglobin 12.4 g/dL (11.5-15.4); Immature Granulocytes % 3.7 % (0-4); Immature Platelets 5.2 % (1.1-6.1); Lymphocytes # 0.6 K/mcL (0.6-4.6); Lymphocytes % 26.5 %; Mean Corpuscular HGB Conc 32.7 g/dL (31.6-35.5); Mean Corpuscular Hemoglobin 30.2 pg (28.0-33.3); Mean Corpuscular Volume 92.4 fL (83.0-100.0); Mean Platelet Volume 11.8 fL (9.4-12.4); Monocytes # 0.4 K/mcL (0.0-1.3); Monocytes % 16.3 %; Neutrophils # 1.1 K/mcL (1.6-8.9); Platelet Count 120 K/mcL (140-400); Red Cell Distribution Width 21.2 % (11.5-14.5); Segmented Neutrophils % 51.6 %
[2017-05-03 08:17] LABS: Prothrombin Time 10.6 Seconds (9.4-12.1)
[2017-05-03 08:20] LABS: Activated Partial Thrombo Time 37.6 Seconds (26.0-36.0)
--- NOTE | 2017-05-03 08:23 | Internal Med Progress Note ---
<HanksánchezjarrellOsmani amor - Last Filed: 05/03/17 14:26> Date of Encounter: 05/03/17 Time of Encounter: 09:30 - Assessment and plan (1) Fever Current Visit: No Status: Resolved Assessment and plan: Patient has had chronic recurrent fevers s/p CLL treatment. She had multi-month hospitalization at [facility] for CMV encephalitis/colitis Was also admitted to [facility] 04/12/17 Was admitted at [facility] 04/24/17 Each time with Fever No fevers recorded on this admission but family reports fever of 101 at home unclear source: consolidations on cxr, but has been treated for penumonia with a long course of zosyn, negative bcx one week ago, exam not consistent with pneumonia. long history of CMV infection, but low levels of viremia based on last admission PCRs, consider drug fever or neutropenic fever as well. repeat bcx and ucx pending continuing Valyate If cxs positive will consider transfer to [facility] in light of their familiarity with patient and lack of access to ID currently at [facility] Qualifiers: Fever type: due to other condition Qualified Code(s): R50.81 - Fever presenting with conditions classified elsewhere (2) History of encephalitis Current Visit: Yes Status: Acute Assessment and plan: Hx of CMV encephalitis treated at [facility] several months ago. Will repeat MRI brain as patient is overdue for recommended follow up scan Patient appears at baseline mentation (3) CLL (chronic lymphocytic leukemia) Current Visit: Yes Status: Chronic Assessment and plan: Chronic Stable following with [facility] oncology on board. Treated with Bendamustine, treatment premature discontinued due to infectious complications (4) History of CMV Current Visit: Yes Status: Chronic Assessment and plan: Prolongued hospitalization at [facility] for CMV encephalitis and colitis Continue home Valcyte BID. Check CMV PCR (5) Weakness Current Visit: Yes Status: Acute Assessment and plan: Likely 2/2 to multiple causes: CLL, Chronic infections, Hyponatremia, Hypokalemia. replete electrolytes continue infectious work up Oncology on board (6) Hyponatremia Current Visit: Yes Status: Acute Assessment and plan: acute on chronic. likely 2/2 to polydypsia possible SIADH Na 129 on admission 131, 130 on repeat testing baseline 133 continue NS fluid restrict patient reports drinking 3L or more a day. continue to monitor (7) Hypokalemia Current Visit: Yes Status: Acute Assessment and plan: likely dilutional, and poor intake. 2.9 on admission up to 3.2 today. continue to replete. continue to monitor. (8) Pancytopenia Current Visit: No Status: Chronic Assessment and plan: Chronic, stable. secondary to CLL and it's treatment Hematology following. (9) History of DVT (deep vein thrombosis) Current Visit: Yes Status: Chronic Assessment and plan: Hx of DVT on therapeutic lovenox. continue lovenox. - Subjective Interval history: Patient alert and oriented to person, place, and time. She doesn't know exactly what brought her to the hospital. Based on reports she has baseline memory issues. Currently only complaint is being tired and not being able to sleep last night. Patient requesting sudafed for sleep. Patient denies CP, SOB, Abd pain, nausea, vomiting, diarrhea. - Constitutional Vitals: Temp Pulse Resp BP Pulse Ox 97.8 F 68 12 146/80 99 05/03/17 07:43 05/03/17 07:43 05/03/17 07:43 05/03/17 07:43 05/03/17 07:43 General appearance: Present: A&O X 3, pleasant, no acute distress - Head Head exam: Present: atraumatic, normocephalic - Eye Eye exam: Present: PERRL, conjuntiva pink, sclera anicteric Pupils: Present: PERRL - Neck Neck exam general surgery: Present: supple, trachea midline - Respiratory Respiratory exam: Present: CTAB. Absent: accessory muscle use, rales, rhonchi, wheezes - Cardiovascular Cardiovascular exam: Present: RRR, +S1, +S2. Absent: diastolic murmur, gallop, rubs, systolic murmur - GI/Abdominal GI/Abdominal exam: Present: normal bowel sounds, soft, no peritoneal signs. Absent: distended, tenderness - Extremities Exam Extremities exam: Present: warm. Absent: calf tenderness, cyanotic, pedal edema - Neurological Exam Neurological exam: Present: alert, CN II-XII intact, oriented X3, no focal deficits. Absent: motor sensory deficit, facial droop, speech deficit - Skin Skin exam: Present: dry, intact, warm Internal Medicine: Result - Labs CBC & Chem 7: 05/03/17 06:36 05/03/17 11:42 Labs: Short CBC 05/03/17 Range/Units 06:36 WBC 2.2 L (4.3-11.1) K/mcL Hgb 12.4 (11.5-15.4) g/dL Hct 37.9 (35.3-44.9) % Plt Count 120 L (140-400) K/mcL Neutrophils # 1.1 L (1.6-8.9) K/mcL - ABG Interpretation ABG results: PT/INR, D-dimer PT 10.6 Seconds (9.4-12.1) 05/03/17 06:36 Consult Discharge Plan - Plan Referrals: Flaquito Church, DO [Primary Care Provider] - <Berry Atknis - Last Filed: 05/03/17 18:01> Date of Encounter: 05/03/17 - Assessment and plan (1) Infection with CMV (cytomegalovirus) Current Visit: Yes Status: Acute Qualifiers: Cytomegaloviral disease type: other disease Qualified Code(s): B25.8 - Other cytomegaloviral diseases (2) History of encephalitis Current Visit: Yes Status: Acute (3) Hypokalemia Current Visit: Yes Status: Acute (4) Hyponatremia Current Visit: Yes Status: Acute (5) CLL (chronic lymphocytic leukemia) Current Visit: Yes Status: Chronic (6) Pancytopenia Current Visit: No Status: Chronic (7) Fever Current Visit: No Status: Resolved Qualifiers: Fever type: due to other condition Qualified Code(s): R50.81 - Fever presenting with conditions classified elsewhere - Constitutional Vitals: Temp Pulse Resp BP Pulse Ox 98.4 F 72 14 165/97 98 05/03/17 15:33 05/03/17 15:33 05/03/17 15:33 05/03/17 15:33 05/03/17 15:33 Internal Medicine: Result - Labs CBC & Chem 7: 05/03/17 06:36 05/03/17 11:42 Labs: Short CBC 05/03/17 Range/Units 06:36 WBC 2.2 L (4.3-11.1) K/mcL Hgb 12.4 (11.5-15.4) g/dL Hct 37.9 (35.3-44.9) % Plt Count 120 L (140-400) K/mcL Neutrophils # 1.1 L (1.6-8.9) K/mcL BMP 05/03/17 05/03/17 06:36 11:42 Sodium 131 L 130 L Potassium 3.2 L Chloride 97 L Carbon Dioxide 24 BUN 5 L Creatinine 0.58 Glucose 116 H Calcium 9.0 - ABG Interpretation ABG results: PT/INR, D-dimer PT 10.6 Seconds (9.4-12.1) 05/03/17 06:36 - Attending Attestation I examined this patient and my medical decision-making was reviewed with the Resident Physician on 05/03/17. I agree with the documented findings, disposition and treatment plan as described except to the extent set forth below. Ms. Fish is currently admitted for recurrent fevers and concern for new infection. She remains moderate to high risk due to potential for infectious issues with her comorbidities. Ms. Fish says she did not sleep last night. Wants to sleep now. No fever documented. No CP or SOB. Cx pending. MRI ordered. Exam Alert. Comfortable Heart reg No wheeze Abd soft and nontender I/P 1. Fever 2. Hx CMV Further diagnoses and plan as above.
[2017-05-03 08:24] LABS: BUN/Creatinine Ratio 9 (6-26); Carbon Dioxide 24 mEq/L (19-29); Chloride 97 mEq/L (98-109); Glucose 116 mg/dL (70-99); Magnesium 1.6 mg/dL (1.6-2.6); Osmolality,Calculated 270 (280-300); Phosphorous 2.9 mg/dL (2.3-4.7); Potassium 3.2 mEq/L (3.5-4.5); Sodium 131 mEq/L (136-145); eGFR For African Americans > 60 (> 60); eGFR For Non-African Americans > 60 (> 60)
[2017-05-03 08:25] LABS: Blood Urea Nitrogen 5 mg/dL (7-20)
[2017-05-03] MEDS: Gabapentin 100 MG CAPSULE PO SCH ×2 (10:13→20:16)
[2017-05-03] MEDS: Nystatin SUSP 5 ML UD.LIQ PO SCH ×4 (10:13→20:16)
[2017-05-03] MEDS: levETIRAcetam 250 MG TABLET PO SCH ×2 (10:13→20:16)
[2017-05-03] MEDS: VALGANCICLOVIR HCL 450 MG PO SCH ×2 (10:14→21:15)
[2017-05-04] MEDS: *HR* Enoxaparin 80 MG/0.8 ML SYRINGE SQ SCH ×2 (05:23→16:33)
[2017-05-04 05:46] LABS: Hematocrit 37.8 % (35.3-44.9); Hemoglobin 12.8 g/dL (11.5-15.4); Lymphocytes # 0.6 K/mcL (0.6-4.6); Mean Corpuscular HGB Conc 33.9 g/dL (31.6-35.5); Mean Corpuscular Hemoglobin 29.9 pg (28.0-33.3); Mean Corpuscular Volume 88.3 fL (83.0-100.0); Mean Platelet Volume 11.3 fL (9.4-12.4); Platelet Count 144 K/mcL (140-400); Red Blood Count 4.28 M/mcL (3.82-4.97); Red Cell Distribution Width 20.6 % (11.5-14.5)
[2017-05-04 05:59] LABS: BUN/Creatinine Ratio 8 (6-26); Carbon Dioxide 23 mEq/L (19-29); Chloride 93 mEq/L (98-109); Glucose 138 mg/dL (70-99); Osmolality,Calculated 263 (280-300); Potassium 3.3 mEq/L (3.5-4.5); Sodium 127 mEq/L (136-145); eGFR For African Americans > 60 (> 60); eGFR For Non-African Americans > 60 (> 60)
[2017-05-04 06:07] LABS: Blood Urea Nitrogen 5 mg/dL (7-20)
[2017-05-04 06:08] LABS: Basophils # 0.1 K/mcL (0.0-0.2); Monocytes # 0.7 K/mcL (0.0-1.3); Neutrophils # 1.2 K/mcL (1.6-8.9)
[2017-05-04 06:09] LABS: Platelet Estimate Decreased (Normal)
--- NOTE | 2017-05-04 08:17 | Electrocardiograph Report ---
[place] [id number] Test Date: 2017-05-02 Pat Name: Morenita Fish Department: [id number] Room: 2A71 Gender: F [employer] Supervisor: : [id number] Requested By: Anuel Alberto Order Number: [id number] Reading MD: Dorothy Sethi Measurements Intervals [place] Rate: 76 P: 58 UT: 150 QRS: -52 QRSD: 91 T: 30 QT: 414 QTc: 444 Interpretive Statements SINUS RHYTHM POSSIBLE LEFT ATRIAL ENLARGEMENT PATTERN CONSISTENT WITH PULMONARY DISEASE POSSIBLE RIGHT VENTRICULAR CONDUCTION DELAY LEFT ANTERIOR FASCICULAR BLOCK Electronically Signed On 05-03-2017 11:33:16 EDT by Dorothy Sethi
[2017-05-04] MEDS: levETIRAcetam 250 MG TABLET PO SCH ×2 (08:37→20:58)
[2017-05-04] MEDS: Gabapentin 100 MG CAPSULE PO SCH ×2 (08:37→20:57)
[2017-05-04] MEDS: Nystatin SUSP 5 ML UD.LIQ PO SCH ×4 (08:37→20:58)
[2017-05-04] MEDS ORDERED: 0.9 % Sodium Chloride 1,000 ML IVC SCH (08:45)
[2017-05-04] MEDS: VALGANCICLOVIR HCL 450 MG PO SCH ×2 (10:54→20:59)
--- NOTE | 2017-05-04 11:43 | Internal Med Progress Note ---
<Osmani Francis - Last Filed: 05/04/17 11:41> Date of Encounter: 05/04/17 Time of Encounter: 09:30 - Assessment and plan (1) Fever Current Visit: No Status: Resolved Assessment and plan: Patient has had chronic recurrent fevers s/p CLL treatment. 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 long history of CMV infection, but low levels of viremia based on last admission PCRs, consider drug fever or neutropenic fever as well. 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 -Will repeat MRI brain as patient is overdue for recommended follow up scan -Patient appears at baseline mentation (3) CLL (chronic lymphocytic leukemia) Current Visit: Yes Status: Chronic Assessment and plan: Chronic Stable -following with [place] [facility]ology -oncology on board. 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 -Check CMV PCR (5) Weakness Current Visit: Yes Status: Acute Assessment and plan: Likely 2/2 to multiple causes: CLL, Chronic infections, Hyponatremia, Hypokalemia. -replete electrolytes -continue infectious work up -Oncology on board (6) Hyponatremia Current Visit: Yes Status: Acute Assessment and plan: acute on chronic. likely 2/2 to polydypsia possible SIADH Na 129 on admission 131, 130, 129, 127 on repeat testing baseline 133 continue NS fluid restrict patient reports drinking 3L or more a day. continue to monitor (7) Hypokalemia Current Visit: Yes Status: Acute Assessment and plan: likely dilutional, and poor intake. 2.9 on admission up to 3.3 today. continue to replete. continue to monitor. (8) Pancytopenia Current Visit: No Status: Chronic Assessment and plan: Chronic, stable. -secondary to CLL and it's treatment -Hematology following. (9) History of DVT (deep vein thrombosis) Current Visit: Yes Status: Chronic Assessment and plan: Hx of DVT -on therapeutic lovenox. -continue lovenox. - Subjective Interval history: Patient denies CP, SOB, Abd pain, nausea, vomiting, diarrhea, dysuria. She does report urinar frequency, but states this is long standing. Ucx negative. - Constitutional Vitals: Temp Pulse Resp BP Pulse Ox 98.7 F 92 18 154/90 96 05/04/17 11:17 05/04/17 11:17 05/04/17 11:17 05/04/17 11:17 05/04/17 11:17 General appearance: Present: A&O X 3, pleasant, no acute distress - Head Head exam: Present: atraumatic, normocephalic - Eye Eye exam: Present: PERRL, conjuntiva pink, sclera anicteric Pupils: Present: PERRL - Neck Neck exam general surgery: Present: supple, trachea midline - Respiratory Respiratory exam: Present: CTAB. Absent: accessory muscle use, rales, rhonchi, wheezes - Cardiovascular Cardiovascular exam: Present: RRR, +S1, +S2. Absent: diastolic murmur, gallop, rubs, systolic murmur - GI/Abdominal GI/Abdominal exam: Present: normal bowel sounds, soft, no peritoneal signs. Absent: distended, tenderness - Extremities Exam Extremities exam: Present: warm. Absent: calf tenderness, cyanotic, pedal edema - Neurological Exam Neurological exam: Present: alert, oriented X3, no focal deficits. Absent: facial droop, speech deficit - Skin Skin exam: Present: dry, intact Internal Medicine: Result - Labs CBC & Chem 7: 05/04/17 05:25 05/04/17 05:25 Labs: Short CBC 05/04/17 Range/Units 05:25 WBC 2.5 L (4.3-11.1) K/mcL Hgb 12.8 (11.5-15.4) g/dL Hct 37.8 (35.3-44.9) % Plt Count 144 (140-400) K/mcL Neutrophils # 1.2 L (1.6-8.9) K/mcL BMP 05/03/17 05/03/17 05/04/17 11:42 19:45 05:25 Sodium 130 L 129 L 127 L Potassium 3.3 L Chloride 93 L Carbon Dioxide 23 BUN 5 L Creatinine 0.59 Glucose 138 H Calcium 9.0 - ABG Interpretation ABG results: PT/INR, D-dimer PT 10.6 Seconds (9.4-12.1) 05/03/17 06:36 Consult Discharge Plan - Plan Referrals: Flaquito Church DO [Primary Care Provider] - <Berry Atkins - Last Filed: 05/04/17 18:52> Date of Encounter: 05/04/17 - Assessment and plan (1) Infection with CMV (cytomegalovirus) Current Visit: Yes Status: Acute Qualifiers: Cytomegaloviral disease type: other disease Qualified Code(s): B25.8 - Other cytomegaloviral diseases (2) History of encephalitis Current Visit: Yes Status: Acute (3) Hypokalemia Current Visit: Yes Status: Acute (4) Hyponatremia Current Visit: Yes Status: Acute (5) CLL (chronic lymphocytic leukemia) Current Visit: Yes Status: Chronic (6) Pancytopenia Current Visit: No Status: Chronic (7) Fever Current Visit: No Status: Resolved Qualifiers: Fever type: due to other condition Qualified Code(s): R50.81 - Fever presenting with conditions classified elsewhere - Constitutional Vitals: Temp Pulse Resp BP Pulse Ox 98.7 F 90 20 136/96 98 05/04/17 16:54 05/04/17 16:54 05/04/17 16:54 05/04/17 16:54 05/04/17 16:54 Internal Medicine: Result - Labs CBC & Chem 7: 05/04/17 05:25 05/04/17 15:49 Labs: Short CBC 05/04/17 Range/Units 05:25 WBC 2.5 L (4.3-11.1) K/mcL Hgb 12.8 (11.5-15.4) g/dL Hct 37.8 (35.3-44.9) % Plt Count 144 (140-400) K/mcL Neutrophils # 1.2 L (1.6-8.9) K/mcL BMP 05/03/17 05/04/17 05/04/17 19:45 05:25 15:49 Sodium 129 L 127 L 127 L Potassium 3.3 L Chloride 93 L Carbon Dioxide 23 BUN 5 L Creatinine 0.59 Glucose 138 H Calcium 9.0 - ABG Interpretation ABG results: PT/INR, D-dimer PT 10.6 Seconds (9.4-12.1) 05/03/17 06:36 - Attending Attestation I examined this patient and my medical decision-making was reviewed with the Resident Physician on 05/04/17. I agree with the documented findings, disposition and treatment plan as described except to the extent set forth below. Ms. Fish is currently in observation for fever and hyponatremia. Ms Fish is resting comfortably. Her BP has been higher today most likely due to sudafed. No fever noted. MRI pending. No CP or SOB. Exam Alert. Comfortable Heart reg No wheeze Abd soft No edema I/P 1. Fever resolved 2. Hyponatremia Further diagnoses and plan as above.
[2017-05-04] MEDS ORDERED: *HR* LORazepam 0.5 MG TABLET PO ONE (20:28)
[2017-05-05 01:34] LABS: Hematocrit 41.5 % (35.3-44.9); Hemoglobin 14.2 g/dL (11.5-15.4); Mean Corpuscular HGB Conc 34.2 g/dL (31.6-35.5); Mean Corpuscular Hemoglobin 29.8 pg (28.0-33.3); Mean Corpuscular Volume 87.2 fL (83.0-100.0); Mean Platelet Volume 10.1 fL (9.4-12.4); Platelet Count 159 K/mcL (140-400); Red Blood Count 4.76 M/mcL (3.82-4.97); Red Cell Distribution Width 21.2 % (11.5-14.5)
[2017-05-05 01:47] LABS: BUN/Creatinine Ratio 10 (6-26); Blood Urea Nitrogen 6 mg/dL (7-20); Calcium 9.5 mg/dL (8.6-10.8); Carbon Dioxide 20 mEq/L (19-29); Chloride 95 mEq/L (98-109); Glucose 167 mg/dL (70-99); Osmolality,Calculated 263 (280-300); Sodium 126 mEq/L (136-145); eGFR For African Americans > 60 (> 60); eGFR For Non-African Americans > 60 (> 60)
[2017-05-05 01:49] LABS: Potassium 3.4 mEq/L (3.5-4.5)
[2017-05-05 01:58] LABS: Lymphocytes # 0.7 K/mcL (0.6-4.6); Monocytes # 0.6 K/mcL (0.0-1.3); Neutrophils # 1.7 K/mcL (1.6-8.9); Reactive Lymphocytes Present (Not Present)
[2017-05-05 01:59] LABS: Platelet Estimate Normal (Normal)
[2017-05-05] MEDS: *HR* Enoxaparin 80 MG/0.8 ML SYRINGE SQ SCH ×2 (05:46→17:10)
[2017-05-05] MEDS: Gabapentin 100 MG CAPSULE PO SCH ×2 (08:40→20:33)
[2017-05-05] MEDS: Nystatin SUSP 5 ML UD.LIQ PO SCH ×4 (08:40→20:33)
[2017-05-05] MEDS: levETIRAcetam 250 MG TABLET PO SCH ×2 (08:40→20:33)
[2017-05-05] MEDS: VALGANCICLOVIR HCL 450 MG PO SCH ×2 (08:43→20:33)
[2017-05-05] MEDS ORDERED: amLODIPine 5 MG TABLET PO SCH (09:00)
--- NOTE | 2017-05-05 10:07 | Discharge Summary ---
<Osmani Francis - Last Filed: 05/05/17 16:23> Date of Encounter: 05/05/17 Time of Encounter: 09:30 - Discharge Diagnosis (1) History of encephalitis Priority: Secondary Status: Acute (2) CLL (chronic lymphocytic leukemia) Priority: Primary Status: Chronic (3) History of CMV Priority: Secondary Status: Chronic (4) Weakness Priority: Secondary Status: Acute (5) Hyponatremia Priority: Secondary Status: Acute (6) Hypokalemia Priority: Secondary Status: Acute (7) Pancytopenia Priority: Secondary Status: Chronic (8) History of DVT (deep vein thrombosis) Priority: Secondary Status: Chronic - Discharge Medications Home Medications: Nystatin [Nystatin Suspension] 500,000 units PO QID #400 ml 03/31/17 [Rx] Valganciclovir HCl [Valcyte] 450 mg PO BID 04/24/17 [History] Acetaminophen [Tylenol] 650 mg PO Q6HR PRN tab 05/05/17 [Rx] Atorvastatin [Lipitor] 20 mg PO HS tab 05/05/17 [Rx] Docusate [Colace] 100 mg PO BID PRN 05/05/17 [Rx] Enoxaparin [Lovenox] 70 mg SQ Q12HR 05/05/17 [Rx] Gabapentin [Neurontin] 100 mg PO BID 05/05/17 [Rx] Levothyroxine [Synthroid] 100 mcg PO 0630 tab 05/05/17 [Rx] Naloxone [Narcan] 0.4 mg IVP Q2MIN PRN 05/05/17 [Rx] Omeprazole [PriLOSEC] 20 mg PO DAILY 05/05/17 [Rx] Ondansetron [Zofran] 4 mg IVP Q8HR PRN vial 05/05/17 [Rx] Sodium Chloride 1 gm PO BID tab 05/05/17 [Rx] amLODIPine [Norvasc] 5 mg PO DAILY tab 05/05/17 [Rx] hydrALAZINE [HydrALAZINE] 10 mg IVP Q6HR PRN vial 05/05/17 [Rx] levETIRAcetam [Keppra] 1,000 mg PO BID tab 05/05/17 [Rx] Allergies/Adverse Reactions: 3 Allergy/AdvReac Type Severity Reaction Status Date / Time No Known Allergies Allergy Verified 05/02/17 11:29 Procedures/tests Complete & Pending: Procedures Performed prior 72 hours Category Date Time Status MR head/brain wo/w con [MR] Routine MRI 05/03/17 09:44 Draft CXR: FINDINGS: There are multiple areas of increased airspace opacity at the left lung base, right hilum, and both lung apices which are suggestive of multifocal consolidation. Pulmonary vascularity is normal. The cardiac silhouette is normal. The left PICC terminates in the superior vena cava. XR/XR chest 1V portable IMPRESSION: Subtle multifocal consolidation. MRI Brain: FINDINGS: Multiple sequences are degraded by motion. INTRACRANIAL STRUCTURES/VENTRICLES: Mild generalized cerebral and cerebellar volume loss is not significantly changed. There is no midline shift or hydrocephalus. Basal cisterns are patent. There is no extra-axial fluid collection. Small foci of T2/FLAIR hyperintense signal in the right centrum semiovale may reflect remote lacunar infarcts, which are new since the prior examination. There is a small, 3 mm focus of FLAIR hyperintense signal in the left basal ganglia which demonstrates mild, patchy postcontrast enhancement. 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 No restricted diffusion is identified to suggest acute ischemia or infarct. There is no abnormal parenchymal gradient susceptibility. Flow voids of the proximal intracranial arteries and dural sinuses are unremarkable. ORBITS: The visualized portion of the orbits demonstrate no acute abnormality. SINUSES: No fluid is seen in the visualized paranasal sinuses and mastoid air cells. BONES/SOFT TISSUES: The bone marrow signal intensity appears normal. The craniocervical junction is normal in appearance. MR/MR head/brain wo/w con IMPRESSION: No evidence of acute infarct. Small, 3 mm T2/FLAIR hyperintense lesion in the left basal ganglia demonstrates mild, postcontrast enhancement. 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 However, early encephalitis cannot be excluded in this patient with a known history of CMV encephalitis. No intracranial abscess or evidence of ventriculitis. Small, remote right centrum semiovale lacunar infarcts are new since the prior examination. Date of admission: 05/02/17 16:52 Primary care physician: Flaquito Church DO Consults: 05/02/17 18:50 Consult to Nutrition [CONS] Routine Comment: Consulting Provider: NUTRITION Reason for Dietary Consult: MST Score Discharging clinician: Osmani Francis Anticipated date of discharge: 05/05/17 - Patient Status Disposition: Transfer Other Condition: Fair Functional capacity at discharge: uses cane/walker Overall status at discharge: patient is not back to baseline - Discharge Instructions Follow Up With: Flaquito Church DO [Primary Care Provider] - 05/14/17 9:45 am (please follow up as schedule... ) Additional Instructions: Please follow up with your primary care provider within 1 week of discharge. Please follow up with your neurologist, oncologist, and infectious disease doctors. Please return to the hospital if you experience any new or worsening symptoms. - Diet and Activity Activity: resume usual activities as tolerated Diet: advance to your usual diet Interval History: Patient is intermittently lethargic. Per she appears to be improving, but is not fully at her baseline before all this started. Her bcx grew yeast this morning. Patient will be transferred to [facility] for higher level of care. Hospital course: Ms. Fish is a 71 year old female c PMHx of CLL, breast CA, CMV encephalitis, CMV colitis, atrial fibrillation, DVT, hyperlipidemia, hypertension, RA, seizures, and thyroid disease who reported to the hospital complainign of fever , N, V, gernealized weakness. Patient has had multiple recent admissions. She was originally diagnosed and treated for CMV encephalitis in October of 2016. She was transferred from [facility] to [facility] for her care. Recently she was admitted 03/30/17 for fever and again transferred to [facility]. She was admitted on the and again on the 26 of april each time for recurrent fevers. Her latest admission her Bcx did not grow anything. All issues seem to have stemmed from her CLL and subsequent treatment with bendamustine which was stopped prematurely due to her infections. On this hopsitalization patient was afebrile through out. She was found to have acute on chronic hyponatremia and also hypokalemia. Her electrolytes were repleted with her K responding well, but remaining persistently hyponatremic. Her UA and Ucx were normal. Her Bcx were preliminarily negative until this morning when they began to grow yeast. [facility] does not currently have ID coverage and since her prior care has been at [facility] it was deemed best for the patient to be transferred to a higher level of care. - Time Spent with Patient Total time spent providing and/or coordinating discharge services: 40 minutes - Constitutional Vitals: Temp Pulse Resp BP Pulse Ox 98.4 F 90 18 166/75 97 05/05/17 07:05 05/05/17 07:05 05/05/17 07:05 05/05/17 07:05 05/05/17 07:05 General appearance: Present: A&O X 3, pleasant, no acute distress - Head Head exam: Present: atraumatic, normocephalic - Eye Eye exam: Present: PERRL, conjuntiva pink, sclera anicteric Pupils: Present: PERRL - Neck Neck exam general surgery: Present: supple, trachea midline - Respiratory Respiratory exam: Present: CTAB. Absent: accessory muscle use, rales, rhonchi, wheezes - Cardiovascular Cardiovascular exam: Present: RRR, +S1, +S2. Absent: diastolic murmur, gallop, rubs, systolic murmur - GI/Abdominal GI/Abdominal exam: Present: normal bowel sounds, soft, no peritoneal signs. Absent: distended, tenderness - Extremities Exam Extremities exam: Present: warm. Absent: calf tenderness, cyanotic, pedal edema - Neurological Exam Neurological exam: Present: alert, CN II-XII intact, oriented X3, no focal deficits. Absent: facial droop, speech deficit - Skin Skin exam: Present: dry, intact, warm <Berry Atkins - Last Filed: 05/05/17 16:51> Date of Encounter: 05/05/17 - Discharge Diagnosis (1) CLL (chronic lymphocytic leukemia) Status: Chronic (2) Infection with CMV (cytomegalovirus) Priority: Secondary Status: Acute Qualifiers: Cytomegaloviral disease type: other disease Qualified Code(s): B25.8 - Other cytomegaloviral diseases (3) History of encephalitis Status: Acute (4) Hypokalemia Priority: Secondary Status: Acute (5) Hyponatremia Status: Acute (6) Pancytopenia Status: Chronic (7) Fever Priority: Secondary Status: Resolved Qualifiers: Fever type: due to other condition Qualified Code(s): R50.81 - Fever presenting with conditions classified elsewhere Procedures/tests Complete & Pending: Procedures Performed prior 72 hours Category Date Time Status MR head/brain wo/w con [MR] Routine MRI 05/03/17 09:44 Draft Date of admission: 05/02/17 16:52 Primary care physician: Flaquito Church, Consults: 05/02/17 18:50 Consult to Nutrition [CONS] Routine Comment: Consulting Provider: NUTRITION Reason for Dietary Consult: MST Score Hospital course: Ms. Fish is a 71 year old female - Time Spent with Patient Total time spent providing and/or coordinating discharge services: - Constitutional Vitals: Temp Pulse Resp BP Pulse Ox 99.0 F 106 19 149/83 98 05/05/17 11:38 05/05/17 11:38 05/05/17 11:38 05/05/17 11:38 05/05/17 11:38 - Attending Attestation I examined this patient and my medical decision-making was reviewed with the Resident Physician on 05/05/17. I agree with the documented findings, disposition and treatment plan as described except to the extent set forth below. Ms Fish has been admitted due to recurrent fevers. She has hx of CMV encephalitis and colitis. She now has blood culture with yeast. She is being transferred to [facility] for ID evaluation. Exam Alert. Comfortable Heart reg No wheeze Abd soft No edema Plan Micafungin started Transfer to [facility] arranged (Dr. Smith).
[2017-05-05] MEDS ORDERED: Micafungin 100 MG in 0.9 % Sodium Chloride 100 ML IVPB SCH (11:15)
[2017-05-05] MEDS ORDERED: Micafungin 100 MG in 0.9 % Sodium Chloride Mini Bag 100 ML IVPB SCH (11:30)
[2017-05-05 22:20] VITALS: BP 158/90
[2017-05-06 08:40] LABS: Acinetobacter baumannii by PCR Not Detected (Not Detect); Candida albicans by PCR Not Detected (Not Detect); Candida glabrata by PCR Not Detected (Not Detect); Candida krusei by PCR Not Detected (Not Detect); Candida parapsilosis by PCR Not Detected (Not Detect); Candida tropicalis by PCR Not Detected (Not Detect); Enterococcus by PCR Not Detected (Not Detect); Escherichia coli by PCR Not Detected (Not Detect); Klebsiella oxytoca by PCR Not Detected (Not Detect); Klebsiella pneumoniae by PCR Not Detected (Not Detect); Pseudomonas aeruginosa by PCR Not Detected (Not Detect); Serratia marcescens by PCR Not Detected (Not Detect); Staphylococcus aureus by PCR Not Detected (Not Detect); Streptococcus agalactiae(B)PCR Not Detected (Not Detect); Streptococcus by PCR Not Detected (Not Detect); Streptococcus pneumoniae PCR Not Detected (Not Detect); Streptococcus pyogenes (A) PCR Not Detected (Not Detect)
[2017-05-06] MEDS ORDERED: Micafungin 100 MG in 0.9 % Sodium Chloride Mini Bag 100 ML IVPB SCH (09:00)
[2017-05-06 09:42] LABS: CMV Quant by PCR IU <227 IU/mL; CMV Quant by PCR Log IU <2.4 log IU/mL; CMV Quant by PCR copies <390 cpy/mL
[2017-05-06 12:39] LABS: CMV Quant by PCR Log copies <2.6 log cpy/mL
--- NOTE | 2017-05-08 10:20 | Event Note ---
Date of Encounter: 05/08/17 Time of Encounter: 10:19 Patient transferred to [facility] due to blood cultures being positive for fungi. 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 Results have been called to patient's nurse at [facility] at [phone]. Results have also been faxed to [phone] per their request.
== END 2017-05-05 22:18 | disposition other institution (70) ==
LOC: 2ANU 11:20 → EMEROO 11:20 → 2ANU 17:53
PROVIDERS: ADMIT Nurse Practitioner Family; ATTEND Internal Medicine